=== PATIENT | female | born 1925 | race Caucasian/White ===

== ENCOUNTER 2016-09-20 20:41 | Inpatient (IN) | payer MEDICARE, BC, MEDICAID ==
[~2016-09-20] VITALS: Ht 165.1 cm; Wt 62.6 kg
[2016-09-20 20:51] VITALS: BP 105/84
[2016-09-20] MEDS ORDERED: Unasyn 3gm Inj ONE (20:57)
[2016-09-20] MEDS ORDERED: Ampicillin/Sulbactam Sod 3 GM in NS 100 ML IV SCH (21:00)
[2016-09-20] MEDS ORDERED: Vancomycin 1.5gm/D5W 300ml 300 ML IVPB ONE (21:00)
[2016-09-20] MEDS ORDERED: Acetaminophen 650 MG SUPP RECTAL ONE (21:00)
--- NOTE | 2016-09-20 21:00 | Emergency Room Report ---
History of Present Illness General Chief Complaint: Altered Level of Consciousness Source: Patient, Medical Record Present Illness HPI Patient is a 89-year-old female presented after increased altered level consciousness. Patient gradual onset of symptoms. The patient presented for assisted. History is limited by patient's altered mental status. Patient noted be afebrile. She has prior history of chronic atrial fibrillation and as well as toxic encephalopathy and hypothyroidism. She was brought in by EMS and was noted to have a decreased of consciousness. Allergies: Coded Allergies: No Known Allergies (Unverified , 09/20/16) Patient History Past Medical History: see triage record Last Menstrual Period: n/a Reviewed Nursing Documentation: PMH: Agreed, PSxH: Agreed Nursing Documentation-PMH Past Medical History: No History, Except For Hx Cardiac Problems: Yes - afib Hx Hypertension: Yes Hx Gastrointestinal Problems: Yes - dysphagia Hx Neurological Problems: Yes - dementia Review of Systems All Other Systems: limited - by mental status and acuity Physical Exam Vital Signs Date Time Temp Pulse Resp B/P Pulse Ox O2 Delivery O2 Flow Rate FiO2 09/20/16 20:36 130 18 136/81 94 Non-Rebreather 15.0 09/20/16 20:51 102.9 Sp02 EP Interpretation: abnormal General Appearance: moderate distress, Chronically Ill Head: normocephalic Eyes: bilateral eye PERRL ENT: normal pharynx, dry mucus membranes Neck: limited range of motion Respiratory: rales, rhonchi Cardiovascular #1: normal peripheral pulses, tachycardia Gastrointestinal: non tender, soft, no mass, no organomegaly Musculoskeletal: normal inspection, back normal Neurologic: alert, responsive, fresh work inspector III-XII nml as tested Psychiatric: other Skin: normal color, warm/dry Procedures Critical Care Time Critical Care Time Patient had a critical medical condition which untreated could potentially result in life or limb threatening injury. Total critical care time excluding procedures approximately 45 minutes. Medical Decision Making Diagnostic Impression: Primary Impression: Altered level of consciousness Additional Impressions: Severe sepsis Atrial fibrillation ER Course Patient presented for altered mental status.Differential diagnosis included but was not limited to ischemic stroke, subarachnoid hemorrhage, hypoglycemia, spinal cord injury, neurodegenerative disorder, urinary tract infection, hypoxemia.Because of complexity of patient's case laboratory testing and imaging studies were ordered. The patient did be febrile and appears to be septic. Patient started on IV fluids and IV antibiotics after blood culture obtained. The patient's exam is consistent with a pneumonia. Patient was given empiric coverage. Rhythm strip shows sinus tachycardia with a rate of 150 with frequent PVCs and ectopy. The patient started on IV fluids. Patient noted have some improvement in her heart rate. Chest x-ray one view interpreted by me showed a right lower lobe infiltrate consistent with possible aspiration pneumonia. The patient had some improvement in her blood pressure with IV fluids. The patient was started on BiPAP The patient was discussed with Dr. Rodrigo Diaz who is covering forDr. Timo Watkins for inpatient management Labs Test 09/20/16 20:49 09/20/16 21:15 09/20/16 22:42 Arterial Blood pH 7.412 (7.350-7.450) Arterial Blood Partial Pressure CO2 38.7 mmHg (35.0-45.0) Arterial Blood Partial Pressure O2 89.3 mmHg (75.0-100.0) Arterial Blood HCO3 24.1 mmol/L (22.0-26.0) Arterial Blood Oxygen Saturation 96.6 % (92.0-98.0) Arterial Blood Base Excess -0.3 Lee Test Positive White Blood Count 12.6 K/UL (4.8-10.8) Red Blood Count 5.58 M/UL (4.20-5.40) Hemoglobin 16.9 G/DL (12.0-16.0) Hematocrit 53.4 % (37.0-47.0) Mean Corpuscular Volume 96 FL (80-99) Mean Corpuscular Hemoglobin 30.3 PG (27.0-31.0) Mean Corpuscular Hemoglobin Concent 31.7 G/DL (32.0-36.0) Red Cell Distribution Width 13.3 % (11.6-14.8) Platelet Count 235 K/UL (150-450) Mean Platelet Volume 7.9 FL (6.5-10.1) Neutrophils (%) (Auto) % (45.0-75.0) Lymphocytes (%) (Auto) % (20.0-45.0) Monocytes (%) (Auto) % (1.0-10.0) Eosinophils (%) (Auto) % (0.0-3.0) Basophils (%) (Auto) % (0.0-2.0) Differential Total Cells Counted 100 Neutrophils % (Manual) 68 % (45-75) Lymphocytes % (Manual) 5 % (20-45) Monocytes % (Manual) 4 % (1-10) Eosinophils % (Manual) 0 % (0-3) Basophils % (Manual) 0 % (0-2) Band Neutrophils 23 % (0-8) Platelet Estimate Adequate Platelet Morphology Normal Red Blood Cell Morphology Normal Prothrombin Time 21.9 SEC (9.30-11.50) Prothromb Time International Ratio 2.1 (0.9-1.1) Activated Partial Thromboplast Time 43 SEC (23-33) Urine Color Brown Urine Appearance Cloudy Urine pH 6 (4.5-8.0) Urine Specific [place] 1.025 (1.005-1.035) Urine Protein 3+ (NEGATIVE) Urine Glucose (UA) Negative (NEGATIVE) Urine Ketones 1+ (NEGATIVE) Urine Occult Blood 5+ (NEGATIVE) Urine Nitrite Positive (NEGATIVE) Urine Bilirubin Negative (NEGATIVE) Urine Urobilinogen Normal MG/DL (0.0-1.0) Urine Leukocyte Esterase 3+ (NEGATIVE) Urine RBC 10-15 /HPF (0 - 2) Urine WBC 15-20 /HPF (0 - 2) Urine Squamous Epithelial Cells Few /LPF (NONE/OCC) Urine Bacteria Many /HPF (NONE) Sodium Level 143 mEQ/L (135-145) Potassium Level 3.7 mEQ/L (3.4-4.9) Chloride Level 99 mEQ/L (98-107) Carbon Dioxide Level 26 mEQ/L (20-30) Anion Gap 18 (5-15) Blood Urea Nitrogen 30 mg/dL (7-23) Creatinine 0.7 mg/dL (0.5-0.9) Estimat Glomerular Filtration Rate mL/min (>60) Glucose Level 208 mg/dL (74-106) Calcium Level 8.9 mg/dL (8.6-10.2) Total Bilirubin 0.9 mg/dL (0.0-1.2) Aspartate Amino Transf (AST/SGOT) 14 U/L (5-40) Alanine Aminotransferase (ALT/SGPT) 10 U/L (3-33) Alkaline Phosphatase 67 U/L (35-104) Total Creatine Kinase 14 U/L (26-140) Creatine Kinase MB < 1.5 ng/mL (< 3.8) Creatine Kinase MB Relative Index Troponin I < 0.30 ng/mL (<=0.30) Pro-B-Type Natriuretic Peptide 2017 pg/mL (0-450) Total Protein 5.7 g/dL (6.6-8.7) Albumin 3.1 g/dL (3.5-5.2) Globulin 2.6 g/dL Albumin/Globulin Ratio 1.1 (1.0-2.7) Lactic Acid Level 1.80 mmol/L (0.66-2.22) EKG Diagnostic Results Rate: tachycardiac Rhythm: NSR ST Segments: no acute changes Rhythm Strip Diag. Results EP Interpretation: yes Rhythm: NSR, other - frequent pvcs Chest X-Ray Diagnostic Results EP Interpretation: Yes Findings: no effusion, no pneumothorax, other - right lower lobe infiltrate Last Vital Signs Date Time Temp Pulse Resp B/P Pulse Ox O2 Delivery O2 Flow Rate FiO2 09/20/16 20:51 102.9 160 37 105/84 94 Nasal Cannula 2.0 Status: improved Disposition: HOME, SELF-CARE Condition: Serious Thierry Tinajero Sep 20, 2016 21:00
[2016-09-20 21:21] LABS: ABG ALLEN TEST POSITIVE; ABG BASE EXCESS -0.3; ABG PCO2 38.7 mmHg (35.0-45.0)
[2016-09-20 21:38] LABS: MEAN CORPUSCULAR HEMOGLOBIN 30.3 PG (27.0-31.0); MEAN CORPUSCULAR HGB CONC 31.7 G/DL (32.0-36.0); MEAN CORPUSCULAR VOLUME 96 FL (80-99); MEAN PLATELET VOLUME 7.9 FL (6.5-10.1); PLATELET COUNT 235 K/UL (150-450); RED BLOOD COUNT 5.58 M/UL (4.20-5.40); RED CELL DISTRIBUTION WIDTH 13.3 % (11.6-14.8); WHITE BLOOD COUNT 12.6 K/UL (4.8-10.8)
[2016-09-20 21:48] LABS: KETONES,URINE 1+ (NEGATIVE); LEUKOCYTE ESTERASE ,URINE 3+ (NEGATIVE); NITRITE,URINE POSITIVE (NEGATIVE); PH,URINE 6 (4.5-8.0); PROTEIN,URINE 3+ (NEGATIVE); UROBILINOGEN,URINE NORMAL MG/DL (0.0-1.0)
[2016-09-20 21:52] LABS: APPEARANCE,URINE CLOUDY
[2016-09-20 22:03] LABS: INR 2.1 (0.9-1.1); PROTHROMBIN TIME 21.9 SEC (9.30-11.50)
[2016-09-20 22:05] LABS: TROPONIN I < 0.30 ng/mL (<=0.30)
[2016-09-20 22:09] LABS: ALANINE AMINOTRANSFERASE 10 U/L (3-33); ALBUMIN/GLOBULIN RATIO 1.1 (1.0-2.7); ANION GAP 18 (5-15); ASPARTATE AMINO TRANSFERASE 14 U/L (5-40); CALCIUM 8.9 mg/dL (8.6-10.2); CARBON DIOXIDE 26 mEQ/L (20-30); CHLORIDE 99 mEQ/L (98-107); CREATININE 0.7 mg/dL (0.5-0.9); HEMOLYSIS 14; POTASSIUM 3.7 mEQ/L (3.4-4.9); SODIUM 143 mEQ/L (135-145); TOTAL PROTEIN 5.7 g/dL (6.6-8.7)
[2016-09-20 22:16] LABS: REFLEX LACTIC ACID YES OR NO YES
[2016-09-20 22:18] LABS: BACTERIA,URINE MANY /HPF; SQUAMOUS EPITHELIAL CELL,UR FEW /LPF (NONE/OCC); WBC,URINE 15-20 /HPF (0 - 2)
[2016-09-20 22:20] LABS: CKMB < 1.5 ng/mL (< 3.8)
[2016-09-20 22:34] LABS: BAND NEUTROPHILS % (MANUAL) 23 % (0-8); BASOPHILS % (MANUAL) 0 % (0-2); EOSINOPHILS % (MANUAL) 0 % (0-3); LYMPHOCYTES % (MANUAL) 5 % (20-45); NEUTROPHILS % (MANUAL) 68 % (45-75); PLATELET ESTIMATE ADEQUATE; PLATELET MORPHOLOGY NORMAL; TOTAL CELLS COUNTED 100
[2016-09-20 23:01] VITALS: BP 120/61
[2016-09-20] MEDS ORDERED: Morphine Sulfate 4mg/ml Inj IVP PRN (23:30)
[2016-09-20] MEDS ORDERED: DuoNeb 0.5-3(2.5)mg/3ml neb HHN PRN (23:30)
[2016-09-20] MEDS ORDERED: LORazepam Inj 2mg/ml 1ml IV PRN (23:30)
[2016-09-20] MEDS ORDERED: Miralax 17gm pkt ORAL PRN (23:30)
[2016-09-20] MEDS ORDERED: ACETAMINOPHEN325 M3 PO (23:39)
[2016-09-20] MEDS ORDERED: Metoprolol 5mg/5ml Inj IVP PRN (23:45)
[2016-09-21] VITALS (19 sets, daily range): BP systolic 98–140; BP diastolic 1–91
[2016-09-21] MEDS ORDERED: MELATONIN 5 MG1 EAC1 ORAL (00:10)
[2016-09-21] MEDS ORDERED: METOPROLOL SUCC25 MG ORAL (00:11)
[2016-09-21] MEDS ORDERED: SENNA8.6 M2 PO (00:19)
[2016-09-21] MEDS ORDERED: NAMENDA5 MG ORAL (00:19)
[2016-09-21] MEDS ORDERED: VITAMIN C500 M1 ORAL (00:19)
[2016-09-21] MEDS ORDERED: MULTIVITAMINS1 EAC2 ORAL (00:19)
[2016-09-21] MEDS ORDERED: MIRTAZAPINE15 MG ORAL (00:19)
[2016-09-21] MEDS ORDERED: ACETAMINOPHEN-1 EAC1 ORAL (00:19)
[2016-09-21] MEDS ORDERED: XARELTO20 MG ORAL (00:19)
[2016-09-21] MEDS ORDERED: BISACODYL5 MG ORAL (00:52)
[2016-09-21] MEDS ORDERED: ATIVAN0.5 MG ORAL (00:52)
[2016-09-21] MEDS ORDERED: Cefepime 2gm ONE (01:42)
[2016-09-21 05:33] LABS: MEAN CORPUSCULAR HEMOGLOBIN 31.4 PG (27.0-31.0); MEAN CORPUSCULAR HGB CONC 32.3 G/DL (32.0-36.0); MEAN CORPUSCULAR VOLUME 97 FL (80-99); MEAN PLATELET VOLUME 6.9 FL (6.5-10.1); PLATELET COUNT 174 K/UL (150-450); RED BLOOD COUNT 4.47 M/UL (4.20-5.40); RED CELL DISTRIBUTION WIDTH 13.4 % (11.6-14.8); WHITE BLOOD COUNT 11.1 K/UL (4.8-10.8)
[2016-09-21 06:05] LABS: ANION GAP 14 (5-15); CALCIUM 7.9 mg/dL (8.6-10.2); CARBON DIOXIDE 25 mEQ/L (20-30); CHLORIDE 104 mEQ/L (98-107); CREATININE 0.6 mg/dL (0.5-0.9); HEMOLYSIS 7; PHOSPHORUS 3.5 mg/dL (2.5-4.8); POTASSIUM 3.7 mEQ/L (3.4-4.9); SODIUM 143 mEQ/L (135-145)
[2016-09-21] MEDS ORDERED: Vancomycin 750mg/D5W 250ml IVPB SCH ×2 (09:00)
[2016-09-21] MEDS ORDERED: Heparin 5000 units/ml inj SUBQ SCH (09:00)
[2016-09-21 09:13] LABS: BAND NEUTROPHILS % (MANUAL) 12 % (0-8); BASOPHILS % (MANUAL) 1 % (0-2); EOSINOPHILS % (MANUAL) 0 % (0-3); LYMPHOCYTES % (MANUAL) 10 % (20-45); NEUTROPHILS % (MANUAL) 75 % (45-75); PLATELET ESTIMATE ADEQUATE; PLATELET MORPHOLOGY NORMAL; TOTAL CELLS COUNTED 100
--- NOTE | 2016-09-21 09:19 | Consultation ---
History of Present Illness General Date patient seen: Sep 21, 2016 Chief Complaint: Altered Level of Consciousness Referring physician: Dr. Watkins Reason for Consultation: management of septic shock Present Illness HPI 89-year-old female with PMHx of depression, anxiety, chronic afib, snf resident presented to ER with CC of increased altered level consciousness with gradual onset of symptoms. She was noted to be afebrile. She has prior history of chronic atrial fibrillation and as well as toxic encephalopathy and hypothyroidism. She was tachycardic and hypotensive in the ER and was admitted to ICU. Currently HR is controlled and she is more alert but still confused. Allergies: Coded Allergies: No Known Allergies (Unverified , 09/20/16) Medication History Scheduled Ascorbic Acid* (Vitamin C*), 500 MG ORAL DAILY, (Reported) Bisacodyl* (Dulcolax*), 5 MG ORAL DAILY, (Reported) Lorazepam* (Ativan*), 0.5 MG ORAL THREE TIMES A DAY, (Reported) Memantine Hcl* (Namenda*), 5 MG ORAL TWICE A DAY, (Reported) Metoprolol Succinate* (Metoprolol Succinate*), 12.5 MG ORAL DAILY, (Reported) Mirtazapine* (Remeron*), 15 MG ORAL BEDTIME, (Reported) Multivitamins* (Multivitamins*), 1 TAB ORAL DAILY, (Reported) Scheduled PRN Acetaminophen (Acetaminophen), 650 MG PO Q6HR PRN for fever, (Reported) Acetaminophen With Codeine (T#3) (Tylenol #3 Tab*), 1 TAB ORAL Q8HR PRN for For Pain, (Reported) Melatonin (Melatonin 5 Mg Tablet), 1 TAB ORAL BEDTIME PRN for Insomnia, ( Reported) Miscellaneous Medications Rivaroxaban (Xarelto), 20 MG ORAL, (Reported) Sennosides (Senna), 8.6 MG PO, (Reported) Patient History Healthcare decision maker DAVE Hobbs Resuscitation status Full Code Advanced Directive on File No Past Medical/Surgical History Past Medical/Surgical History: (1) Depression (2) Hypothyroidism (3) Atrial fibrillation Social History Social History: (1) [facility] resident Review of Systems All Other Systems: negative except mentioned in HPI Physical Exam General Appearance: WD/WN Lines, tubes and drains: peripheral HEENT: normocephalic, atraumatic Neck: non-tender, normal alignment Respiratory/Chest: chest wall non-tender, lungs clear Cardiovascular/Chest: normal peripheral pulses, normal rate Abdomen: normal bowel sounds, non tender, soft Skin Exam: normal pigmentation Neurologic: repeat chief II-XII grossly normal Last 24 Hour Vital Signs Date Time Temp Pulse Resp B/P Pulse Ox O2 Delivery O2 Flow Rate FiO2 09/21/16 08:00 88 17 98/1 93 Nasal Cannula 4.0 09/21/16 08:00 88 09/21/16 07:00 97.6 92 25 123/84 98 Simple Mask 6.0 09/21/16 06:00 102 25 138/83 98 Simple Mask 6.0 09/21/16 05:55 98 Simple Mask 6.0 45 09/21/16 05:55 Simple Mask 6.0 45 09/21/16 05:24 98 18 90 6.0 09/21/16 05:00 88 20 117/59 97 Simple Mask 6.0 09/21/16 04:00 93 09/21/16 04:00 97.4 93 21 106/64 97 Simple Mask 6.0 09/21/16 03:11 97 19 98 6.0 09/21/16 03:00 99 20 114/64 97 Simple Mask 6.0 09/21/16 02:00 98 22 110/65 97 Simple Mask 6.0 09/21/16 01:26 105 09/21/16 01:15 97.1 105 20 121/91 97 Simple Mask 6.0 09/21/16 01:00 99.5 95 18 104/54 96 Room Air 40 09/21/16 00:44 99.5 95 18 104/54 96 Room Air 2.0 40 09/21/16 00:30 102 23 99 6.0 09/21/16 00:01 102.9 109 26 104/54 98 Bi-pap 2.0 40 09/20/16 23:01 102.9 109 26 120/61 98 Bi-pap 40 09/20/16 22:35 124 14 97 Facial 40 09/20/16 21:29 102.9 09/20/16 21:20 40 09/20/16 21:09 135 25 Bi-pap 40 09/20/16 21:08 135 25 95 Facial 40 09/20/16 20:51 102.9 160 37 105/84 94 Nasal Cannula 2.0 09/20/16 20:36 130 18 136/81 94 Non-Rebreather 15.0 Intake and Output 09/20/16 09/21/16 19:00 07:00 Intake Total 1650 ml Output Total 210 ml Balance 1440 ml Intake Oral 0 ml IV Total 650 ml Other 1000 ml Output Urine Total 210 ml # Bowel Movements 2 Laboratory Tests Test 09/20/16 20:49 09/20/16 21:15 09/20/16 22:42 09/21/16 04:15 Arterial Blood pH 7.412 (7.350-7.450) Arterial Blood Partial Pressure CO2 38.7 mmHg (35.0-45.0) Arterial Blood Partial Pressure O2 89.3 mmHg (75.0-100.0) Arterial Blood HCO3 24.1 mmol/L (22.0-26.0) Arterial Blood Oxygen Saturation 96.6 % (92.0-98.0) Arterial Blood Base Excess -0.3 Lee Test Positive White Blood Count 12.6 K/UL (4.8-10.8) H 11.1 K/UL (4.8-10.8) H Red Blood Count 5.58 M/UL (4.20-5.40) H 4.47 M/UL (4.20-5.40) Hemoglobin 16.9 G/DL (12.0-16.0) H 14.0 G/DL (12.0-16.0) Hematocrit 53.4 % (37.0-47.0) H 43.5 % (37.0-47.0) Mean Corpuscular Volume 96 FL (80-99) 97 FL (80-99) Mean Corpuscular Hemoglobin 30.3 PG (27.0-31.0) 31.4 PG (27.0-31.0) H Mean Corpuscular Hemoglobin Concent 31.7 G/DL (32.0-36.0) L 32.3 G/DL (32.0-36.0) Red Cell Distribution Width 13.3 % (11.6-14.8) 13.4 % (11.6-14.8) Platelet Count 235 K/UL (150-450) 174 K/UL (150-450) Mean Platelet Volume 7.9 FL (6.5-10.1) 6.9 FL (6.5-10.1) Neutrophils (%) (Auto) % (45.0-75.0) % (45.0-75.0) Lymphocytes (%) (Auto) % (20.0-45.0) % (20.0-45.0) Monocytes (%) (Auto) % (1.0-10.0) % (1.0-10.0) Eosinophils (%) (Auto) % (0.0-3.0) % (0.0-3.0) Basophils (%) (Auto) % (0.0-2.0) % (0.0-2.0) Differential Total Cells Counted 100 Neutrophils % (Manual) 68 % (45-75) Pending Lymphocytes % (Manual) 5 % (20-45) L Pending Monocytes % (Manual) 4 % (1-10) Eosinophils % (Manual) 0 % (0-3) Basophils % (Manual) 0 % (0-2) Band Neutrophils 23 % (0-8) H Platelet Estimate Adequate Pending Platelet Morphology Normal Pending Red Blood Cell Morphology Normal Prothrombin Time 21.9 SEC (9.30-11.50) H Prothromb Time International Ratio 2.1 (0.9-1.1) H Activated Partial Thromboplast Time 43 SEC (23-33) H Urine Color Brown Urine Appearance Cloudy Urine pH 6 (4.5-8.0) Urine Specific [place] 1.025 (1.005-1.035) Urine Protein 3+ (NEGATIVE) H Urine Glucose (UA) Negative (NEGATIVE) Urine Ketones 1+ (NEGATIVE) H Urine Occult Blood 5+ (NEGATIVE) H Urine Nitrite Positive (NEGATIVE) H Urine Bilirubin Negative (NEGATIVE) Urine Urobilinogen Normal MG/DL (0.0-1.0) Urine Leukocyte Esterase 3+ (NEGATIVE) H Urine RBC 10-15 /HPF (0 - 2) H Urine WBC 15-20 /HPF (0 - 2) H Urine Squamous Epithelial Cells Few /LPF (NONE/OCC) Urine Bacteria Many /HPF (NONE) H Sodium Level 143 mEQ/L (135-145) 143 mEQ/L (135-145) Potassium Level 3.7 mEQ/L (3.4-4.9) 3.7 mEQ/L (3.4-4.9) Chloride Level 99 mEQ/L (98-107) 104 mEQ/L (98-107) Carbon Dioxide Level 26 mEQ/L (20-30) 25 mEQ/L (20-30) Anion Gap 18 (5-15) H 14 (5-15) Blood Urea Nitrogen 30 mg/dL (7-23) H 27 mg/dL (7-23) H Creatinine 0.7 mg/dL (0.5-0.9) 0.6 mg/dL (0.5-0.9) Estimat Glomerular Filtration Rate mL/min (>60) mL/min (>60) Glucose Level 208 mg/dL (74-106) H 216 mg/dL (74-106) H Lactic Acid Level 2.50 mmol/L (0.66-2.22) H 1.80 mmol/L (0.66-2.22) Calcium Level 8.9 mg/dL (8.6-10.2) 7.9 mg/dL (8.6-10.2) L Total Bilirubin 0.9 mg/dL (0.0-1.2) Aspartate Amino Transf (AST/SGOT) 14 U/L (5-40) Alanine Aminotransferase (ALT/SGPT) 10 U/L (3-33) Alkaline Phosphatase 67 U/L (35-104) Total Creatine Kinase 14 U/L (26-140) L Creatine Kinase MB < 1.5 ng/mL (< 3.8) Creatine Kinase MB Relative Index Troponin I < 0.30 ng/mL (<=0.30) Pro-B-Type Natriuretic Peptide 2017 pg/mL (0-450) H Total Protein 5.7 g/dL (6.6-8.7) L Albumin 3.1 g/dL (3.5-5.2) L 2.3 g/dL (3.5-5.2) L Globulin 2.6 g/dL Albumin/Globulin Ratio 1.1 (1.0-2.7) Phosphorus Level 3.5 mg/dL (2.5-4.8) Height (Feet): 5 Height (Inches): 8.00 Weight (Pounds): 138 Medications Current Medications Medications (Trade) Dose Ordered Sig/[place] Route PRN Reason Start Time Stop Time Status Last Admin Dose Admin Acetaminophen (Tylenol) 650 mg Q4H PRN ORAL FEVER 09/20/16 23:30 10/20/16 23:29 Albuterol/ Ipratropium 3 ml 3 ml Q4H PRN HHN Shortness of Breath 09/20/16 23:30 09/25/16 23:29 Cefepime HCl/ Dextrose (Maxipime/D5W 100ml) 100 ml @ 100 mls/hr Q24H IV 09/21/16 01:00 09/28/16 00:59 09/21/16 01:46 Dextrose (Dextrose 50%) STAT PRN IV Hypoglycemia 09/20/16 23:30 10/20/16 23:29 Heparin Sodium (Porcine) (Heparin 5000 units/ml) 5,000 units EVERY 12 HOURS SUBQ 09/21/16 09:00 10/21/16 08:59 09/21/16 08:36 Lorazepam (Ativan 2mg/ml 1ml) 2 mg Q2H PRN IV For Anxiety 09/20/16 23:30 09/27/16 23:29 Metoprolol Tartrate 5 mg 5 mg EVERY HOUR PRN IVP spb more than 120 09/20/16 23:45 10/20/16 23:44 UNV Morphine Sulfate (Morphine Sulfate) 4 mg Q4H PRN IVP Severe Pain (Pain Scale 7-10) 09/20/16 23:30 09/27/16 23:29 Ondansetron HCl (Zofran) 4 mg Q6H PRN IVP Nausea & Vomiting 09/20/16 23:30 10/20/16 23:29 Polyethylene Glycol (Miralax) 17 gm DAILYPRN PRN ORAL Constipation 09/20/16 23:30 10/20/16 23:29 Sodium Chloride (0.45% NS 1000ml) 1,000 ml @ 50 mls/hr Q20H IV 09/21/16 01:00 10/21/16 00:59 09/21/16 01:34 Vancomycin HCl/ Dextrose (Vancomycin/D5W 250ml) 250 ml @ 167 mls/hr Q12H IVPB 09/21/16 09:00 09/26/16 08:59 09/21/16 08:35 Assessment/Plan Problem List: (1) Acute encephalopathy ICD Codes: G93.40 - Encephalopathy, unspecified SNOMED: 6968704 (2) Atrial fibrillation ICD Codes: I48.91 - Unspecified atrial fibrillation SNOMED: 55503969 Qualifiers: Qualified Codes: I48.2 - Chronic atrial fibrillation (3) Altered level of consciousness ICD Codes: R40.4 - Transient alteration of awareness SNOMED: 2064076 (4) Severe sepsis ICD Codes: A41.9 - Sepsis, unspecified organism; R65.20 - Severe sepsis without septic shock SNOMED: 29530984 (5) Depression ICD Codes: F32.9 - Major depressive disorder, single episode, unspecified SNOMED: 80684675 Qualifiers: (6) Hypothyroidism ICD Codes: E03.9 - Hypothyroidism, unspecified SNOMED: 65372682 Qualifiers: Qualified Codes: E03.4 - Atrophy of thyroid (acquired) (7) [facility] resident ICD Codes: Z59.3 - Problems related to living in residential institution SNOMED: 418326584 Assessment/Plan IV hydration IV antibiotics check cultures titrate fio2 check electrolytes cardiac evaluation swallow evaluation might go to telemetry repeat cxr in a few days LEONORA XIAO Sep 21, 2016 09:19
--- NOTE | 2016-09-21 11:54 | Consultation ---
Consult Note Consult Note ID Dic# [id number] JAMIL TOWNSEND M.D. Sep 21, 2016 11:54
--- NOTE | 2016-09-21 12:04 | Diagnostic Imaging Report ---
Indication: SOB Technique: One view of the chest Comparison: none Findings: The patient is rotated to the right. There is evidence of bronchiectasis and bronchial wall thickening involving the right mid and lower lung. No definite acute infiltrates, effusions, or congestion. Heart size is borderline enlarged. There are degenerative changes of the right shoulder Impression: Chronic senescent pulmonary parenchymal changes. No definite acute process Cardiomegaly Other findings as noted
[2016-09-21] MEDS ORDERED: Miralax 17gm pkt ORAL PRN (15:30)
[2016-09-21] MEDS ORDERED: DuoNeb 0.5-3(2.5)mg/3ml neb HHN PRN (15:30)
[2016-09-21] MEDS ORDERED: LORazepam Inj 2mg/ml 1ml IV PRN (15:30)
[2016-09-21] MEDS ORDERED: Morphine Sulfate 4mg/ml Inj IVP PRN (15:30)
--- NOTE | 2016-09-21 16:47 | History & Physical ---
History and Physical History & Physicial Dictated for Int Med-Dr Watkins no. [id number]. ANGELI MILNER Sep 21, 2016 16:47
--- NOTE | 2016-09-21 17:43 | Cardiac Electrophysiology PN ---
Subjective Subjective [id number] Objective Last 24 Hour Vital Signs Date Time Temp Pulse Resp B/P Pulse Ox O2 Delivery O2 Flow Rate FiO2 09/21/16 15:35 97.3 89 123/64 98 2.0 09/21/16 15:00 90 20 126/60 96 Nasal Cannula 5.0 09/21/16 14:00 98.1 87 21 121/66 100 Nasal Cannula 4.0 09/21/16 13:00 88 20 126/60 96 Nasal Cannula 5.0 09/21/16 12:04 82 09/21/16 12:01 97.2 84 22 140/74 95 Nasal Cannula 5.0 09/21/16 11:00 77 18 109/60 95 Nasal Cannula 5.0 09/21/16 10:00 82 18 107/57 95 Nasal Cannula 5.0 09/21/16 09:00 82 18 103/55 95 Nasal Cannula 5.0 09/21/16 08:00 88 17 98/1 93 Nasal Cannula 4.0 09/21/16 08:00 88 09/21/16 07:20 83 20 Simple Mask 40 09/21/16 07:00 97.6 92 25 123/84 98 Simple Mask 6.0 09/21/16 06:00 102 25 138/83 98 Simple Mask 6.0 09/21/16 05:55 98 Simple Mask 6.0 45 09/21/16 05:55 Simple Mask 6.0 45 09/21/16 05:24 98 18 90 6.0 09/21/16 05:00 88 20 117/59 97 Simple Mask 6.0 09/21/16 04:00 93 09/21/16 04:00 97.4 93 21 106/64 97 Simple Mask 6.0 09/21/16 03:11 97 19 98 6.0 09/21/16 03:00 99 20 114/64 97 Simple Mask 6.0 09/21/16 02:00 98 22 110/65 97 Simple Mask 6.0 09/21/16 01:26 105 09/21/16 01:15 97.1 105 20 121/91 97 Simple Mask 6.0 09/21/16 01:00 99.5 95 18 104/54 96 Room Air 40 09/21/16 00:44 99.5 95 18 104/54 96 Room Air 2.0 40 12/29/16 00:30 102 23 99 6.0 09/21/16 00:01 102.9 109 26 104/54 98 Bi-pap 2.0 40 09/20/16 23:01 102.9 109 26 120/61 98 Bi-pap 40 09/20/16 22:35 124 14 97 Facial 40 09/20/16 21:29 102.9 09/20/16 21:20 40 09/20/16 21:09 135 25 Bi-pap 40 09/20/16 21:08 135 25 95 Facial 40 09/20/16 20:51 102.9 160 37 105/84 94 Nasal Cannula 2.0 09/20/16 20:36 130 18 136/81 94 Non-Rebreather 15.0 Intake and Output 09/20/16 09/21/16 19:00 07:00 Intake Total 1650 ml Output Total 210 ml Balance 1440 ml Intake Oral 0 ml IV Total 650 ml Other 1000 ml Output Urine Total 210 ml # Bowel Movements 2 Laboratory Tests Test 09/20/16 20:49 09/20/16 21:15 09/20/16 22:42 09/21/16 04:15 Arterial Blood pH 7.412 (7.350-7.450) Arterial Blood Partial Pressure CO2 38.7 mmHg (35.0-45.0) Arterial Blood Partial Pressure O2 89.3 mmHg (75.0-100.0) Arterial Blood HCO3 24.1 mmol/L (22.0-26.0) Arterial Blood Oxygen Saturation 96.6 % (92.0-98.0) Arterial Blood Base Excess -0.3 Lee Test Positive White Blood Count 12.6 K/UL (4.8-10.8) H 11.1 K/UL (4.8-10.8) H Red Blood Count 5.58 M/UL (4.20-5.40) H 4.47 M/UL (4.20-5.40) Hemoglobin 16.9 G/DL (12.0-16.0) H 14.0 G/DL (12.0-16.0) Hematocrit 53.4 % (37.0-47.0) H 43.5 % (37.0-47.0) Mean Corpuscular Volume 96 FL (80-99) 97 FL (80-99) Mean Corpuscular Hemoglobin 30.3 PG (27.0-31.0) 31.4 PG (27.0-31.0) H Mean Corpuscular Hemoglobin Concent 31.7 G/DL (32.0-36.0) L 32.3 G/DL (32.0-36.0) Red Cell Distribution Width 13.3 % (11.6-14.8) 13.4 % (11.6-14.8) Platelet Count 235 K/UL (150-450) 174 K/UL (150-450) Mean Platelet Volume 7.9 FL (6.5-10.1) 6.9 FL (6.5-10.1) Neutrophils (%) (Auto) % (45.0-75.0) % (45.0-75.0) Lymphocytes (%) (Auto) % (20.0-45.0) % (20.0-45.0) Monocytes (%) (Auto) % (1.0-10.0) % (1.0-10.0) Eosinophils (%) (Auto) % (0.0-3.0) % (0.0-3.0) Basophils (%) (Auto) % (0.0-2.0) % (0.0-2.0) Differential Total Cells Counted 100 100 Neutrophils % (Manual) 68 % (45-75) 75 % (45-75) Lymphocytes % (Manual) 5 % (20-45) L 10 % (20-45) L Monocytes % (Manual) 4 % (1-10) 2 % (1-10) Eosinophils % (Manual) 0 % (0-3) 0 % (0-3) Basophils % (Manual) 0 % (0-2) 1 % (0-2) Band Neutrophils 23 % (0-8) H 12 % (0-8) H Platelet Estimate Adequate Adequate Platelet Morphology Normal Normal Red Blood Cell Morphology Normal Normal Prothrombin Time 21.9 SEC (9.30-11.50) H Prothromb Time International Ratio 2.1 (0.9-1.1) H Activated Partial Thromboplast Time 43 SEC (23-33) H Urine Color Brown Urine Appearance Cloudy Urine pH 6 (4.5-8.0) Urine Specific [place] 1.025 (1.005-1.035) Urine Protein 3+ (NEGATIVE) H Urine Glucose (UA) Negative (NEGATIVE) Urine Ketones 1+ (NEGATIVE) H Urine Occult Blood 5+ (NEGATIVE) H Urine Nitrite Positive (NEGATIVE) H Urine Bilirubin Negative (NEGATIVE) Urine Urobilinogen Normal MG/DL (0.0-1.0) Urine Leukocyte Esterase 3+ (NEGATIVE) H Urine RBC 10-15 /HPF (0 - 2) H Urine WBC 15-20 /HPF (0 - 2) H Urine Squamous Epithelial Cells Few /LPF (NONE/OCC) Urine Bacteria Many /HPF (NONE) H Sodium Level 143 mEQ/L (135-145) 143 mEQ/L (135-145) Potassium Level 3.7 mEQ/L (3.4-4.9) 3.7 mEQ/L (3.4-4.9) Chloride Level 99 mEQ/L (98-107) 104 mEQ/L (98-107) Carbon Dioxide Level 26 mEQ/L (20-30) 25 mEQ/L (20-30) Anion Gap 18 (5-15) H 14 (5-15) Blood Urea Nitrogen 30 mg/dL (7-23) H 27 mg/dL (7-23) H Creatinine 0.7 mg/dL (0.5-0.9) 0.6 mg/dL (0.5-0.9) Estimat Glomerular Filtration Rate mL/min (>60) mL/min (>60) Glucose Level 208 mg/dL (74-106) H 216 mg/dL (74-106) H Lactic Acid Level 2.50 mmol/L (0.66-2.22) H 1.80 mmol/L (0.66-2.22) Calcium Level 8.9 mg/dL (8.6-10.2) 7.9 mg/dL (8.6-10.2) L Total Bilirubin 0.9 mg/dL (0.0-1.2) Aspartate Amino Transf (AST/SGOT) 14 U/L (5-40) Alanine Aminotransferase (ALT/SGPT) 10 U/L (3-33) Alkaline Phosphatase 67 U/L (35-104) Total Creatine Kinase 14 U/L (26-140) L Creatine Kinase MB < 1.5 ng/mL (< 3.8) Creatine Kinase MB Relative Index Troponin I < 0.30 ng/mL (<=0.30) Pro-B-Type Natriuretic Peptide 2017 pg/mL (0-450) H Total Protein 5.7 g/dL (6.6-8.7) L Albumin 3.1 g/dL (3.5-5.2) L 2.3 g/dL (3.5-5.2) L Globulin 2.6 g/dL Albumin/Globulin Ratio 1.1 (1.0-2.7) Phosphorus Level 3.5 mg/dL (2.5-4.8) KAIS[facility] RODRIGUEZ Sep 21, 2016 17:43
--- NOTE | 2016-09-21 21:18 | Consultation ---
DATE OF CONSULTATION: 09/21/2016 INFECTIOUS DISEASE CONSULTATION CONSULTING PHYSICIAN: Edwin Candelario M.D. ATTENDING PHYSICIAN: Timo Watkins M.D. REFERRING PHYSICIAN: Edgardo Delacruz M.D. REASON FOR CONSULTATION: Management of the patient for sepsis and antibiotic management. HISTORY OF PRESENT ILLNESS: The patient is an 89-year-old, a poor historian female, who came to the hospital due to sepsis and worsening of mental status. The patient was admitted to the ICU. The patient was found to have AFib with rapid ventricular response that now has been controlled. The patient was found to have leukocytosis and fever. The patient has been started on IV antibiotics. Infectious disease consultation has been requested for further evaluation of the patient's antibiotic management. PAST MEDICAL HISTORY: 1. History of urinary tract infection. 2. 3. History of AFib. 4. Hypothyroidism. 5. Dementia. 6. Osteoarthritis. 7. Anxiety. 8. Dysphagia. 9. History of failure to thrive. ALLERGIES: No known drug allergies. SOCIAL HISTORY: The patient lives in a [facility]. FAMILY HISTORY: Not available. REVIEW OF SYSTEMS: Unobtainable. MEDICATIONS: Vancomycin and cefepime. PHYSICAL EXAMINATION: VITAL SIGNS: Temperature 97.6 , pulse 86, respiratory rate 18, and blood pressure 109/60. HEENT: Mildly pale conjunctivae. No icterus. NECK: No lymphadenopathy. CHEST: Coarse breathing sounds. HEART: S1 and S2. ABDOMEN: Soft and nontender. EXTREMITIES: No cyanosis . NEUROLOGIC: Very confused. LABORATORY AND DIAGNOSTIC DATA: White blood cells 12.3 and today 11.1, hemoglobin 14, and platelets 174,000. UA unremarkable. BUN 27 and creatinine 0.6. ALT, AST, and alkaline phosphatase within normal range. Chest x-ray is pending. ASSESSMENT: The patient is an 89-year-old female with multiple medical problems as listed below, who came to the hospital with severe sepsis, leukocytosis, possible urinary tract infection as the source. Chest x-ray is pending to rule out possibility of underlying pneumonia and healthcare-associated pneumonia. At this time, the patient will benefit from broad-spectrum antibiotics until we get further information from cultures. PLAN: 1. Continue the patient on vancomycin and cefepime. 2. Monitor blood culture. 3. Monitor urine culture. 4. Monitor CBC. 5. Monitor BNP. Based on the patient's clinical course, laboratories, and cultures, we will do further recommendation. Thank you, Dr. Delacruz, for allowing me to participate in the care of this patient. I will follow the patient with you during this hospitalization. Edwin Candelario M.D. DR: Margot JOB#: [id number] CC:
--- NOTE | 2016-09-21 21:58 | History and Physical Report ---
DATE OF ADMISSION: 09/21/2016 CHIEF COMPLAINT: The patient is an 89-year-old white female, presents with a chief complaint of altered mental status. HISTORY OF PRESENT ILLNESS: The patient is a resident of [facility]. According to staff at [facility], the patient began to experience altered mental status. This was worsening over the last 24 hours. The patient presented to [facility]. The patient was found to be hypotensive. The patient was found to have urinary tract infection. The patient was admitted for urinary tract infection with hypotension, rule out sepsis. PAST MEDICAL HISTORY: Significant for: 1. Atrial fibrillation. 2. Hypertension. 3. Hypothyroidism. 4. Alzheimer's dementia. 5. Dysphagia. 6. Depression. PAST SURGICAL HISTORY: Unknown. MEDICATIONS: Current medications: 1. Tylenol 650 mg one tablet p.o. q.4 h. p.r.n. 2. Ativan 0.5 mg one tablet p.o. q.8 h. p.r.n. 3. Benazepril 5 mg one tablet p.o. daily. 4. Aricept 5 mg one tablet p.o. daily at bedtime. 5. Gabapentin 300 mg one tablet p.o. three times daily. 6. Levoxyl 50 mcg one tablet p.o. daily. 7. Megace 300 mg p.o. twice daily. 8. Metoprolol 12.5 mg one tablet p.o. daily. 9. Namenda 5 mg one tablet p.o. twice daily. 10. Remeron 15 mg one tablet p.o. at bedtime. 11. Xarelto 20 mg one tablet p.o. daily. ALLERGIES: No known drug allergies. SOCIAL HISTORY: The patient is a resident of [facility]. The patient denies tobacco use, having quit several years ago. The patient denies alcohol use. REVIEW OF SYSTEMS: Unable to assess secondary to the patient's mental status. PHYSICAL EXAMINATION: VITAL SIGNS: Temperature is 97.6 degrees, respirations 25, pulse 92, and blood pressure 98/42 and 123/84. GENERAL: The patient is a well-developed and well-nourished white female, in no apparent distress. HEENT: Eyes, pupils are equal and responsive to light and accommodation. Extraocular movements are intact. NECK: Supple without lymphadenopathy. CHEST: Lungs are clear to auscultation bilaterally without wheezes or rales. CARDIOVASCULAR: Regular rate. S1 and S2. No murmurs, rubs, or gallops. ABDOMEN: Soft, nontender, and nondistended. Positive bowel sounds. No evidence of hepatosplenomegaly. Currently, no rebound or guarding noted. EXTREMITIES: No clubbing, cyanosis, or edema. RECTAL/GENITAL: Refused. NEUROLOGIC: Cranial nerves II through XII are grossly intact without focal deficits. LABORATORY STUDIES: Urinalysis, 1+ ketones, 5+ occult blood, positive nitrite, 3+ leukocyte esterase, and 15 to 20 WBCs. WBC is 12.6, hemoglobin 16.9, hematocrit 53.4, and platelets 235,000. Sodium is 143, potassium 3.7, chloride 99, CO2 26, BUN 30, creatinine 0.7, and glucose elevated at 208. Troponin is normal at less than 0.3. BNP is elevated at 2017. Urine culture is pending. ASSESSMENT: This is an 89-year-old white female with: 1. Altered mental status. 2. Urinary tract infection. 3. Sepsis. 4. Atrial fibrillation. 5. Hypotension. 6. Hypothyroidism. 7. Alzheimer's dementia. 8. Dysphagia. 9. Depression. TREATMENT: 1. Altered mental status is probably secondary to urinary tract infection and sepsis as below. 2. Urinary tract infection/sepsis. An Infectious Disease consultation will be obtained with Dr. Candelario. The patient is currently admitted to the intensive care unit secondary to hypotension. The patient has been started empirically on vancomycin and cefepime. We will await culture results. 3. Atrial fibrillation. Continue metoprolol as above. 4. Hypertension. Continue metoprolol and benazepril as above. 5. Hypothyroidism. Continue Levoxyl as above. TSH is pending. 6. Alzheimer's dementia. Continue Aricept and Namenda as above. 7. Dysphagia. The patient is currently tolerating a soft mechanical diet with honey thick liquids. 8. Depression. Continue Remeron as above. Rodrigo Diaz M.D. DR: KEMI/james JOB#: [id number] CC:
[2016-09-21] MEDS: Vancomycin 750 MG in D5W 250 ML IVPB SCH (22:07)
[2016-09-21] MEDS: Heparin 5000 units/ml inj SUBQ SCH (22:08)
[2016-09-21] MEDS: Metoprolol Tartrate 12.5mg TAB ORAL SCH (22:12)
[2016-09-22] VITALS: BP 128/79
[2016-09-22] MEDS ORDERED: Cefepime 2gm ONE (01:07)
--- NOTE | 2016-09-22 01:28 | Consultation ---
DATE OF CONSULTATION: 09/21/2016 CARDIOLOGY CONSULTATION REFERRING PHYSICIAN: Timo Watkins M.D. REASON FOR CONSULTATION: Atrial fibrillation with rapid ventricular response. HISTORY OF PRESENT ILLNESS: The patient is an 89-year-old lady with history of hypertension, chronic atrial fibrillation, depression, and anxiety and [facility] increased altered level of consciousness. The patient was afebrile. The patient was hypotensive in the emergency room, who was then admitted and Cardiology consultation was obtained for further evaluation and management. At the time of my evaluation, the patient feels confused and is unable to provide any meaningful information, but denies any chest pain. REVIEW OF SYSTEMS: Review of systems was performed and was negative other than what was mentioned in the history of present illness. PAST MEDICAL HISTORY: 1. Hypertension. 2. Atrial fibrillation. 3. Hypothyroidism. 4. Depression. 5. Anxiety. ALLERGIES: She has no known drug allergies. MEDICATIONS: Her medications include metoprolol, Namenda, Remeron, Ativan, and vitamin C. The patient also was on Xarelto 20 mg daily. SOCIAL HISTORY: She lives [facility] a [facility]. Does not smoke or drink alcohol. FAMILY HISTORY: Noncontributory. PHYSICAL EXAMINATION: VITAL SIGNS: Blood pressure is 122/64, pulse is 100, and respirations 20. HEAD AND NECK: Showed no JVD. LUNGS: Clear. CARDIOVASCULAR: Shows regular S1 and S2 with no gallop or murmur. ABDOMEN: Soft and nontender. EXTREMITIES: No pitting edema. LABORATORY AND DIAGNOSTIC DATA: Her EKG showed atrial fibrillation with rapid ventricular response and occasional PVCs. Her labs show a white count of 11.1, hemoglobin 14, hematocrit 43, and platelet count of 174,000. Sodium of 142, potassium 3.7, BUN of 27, creatinine 0.6, and glucose . Troponin is negative. BNP is 2017. INR is 2. ASSESSMENT AND PLAN: 1. Atrial fibrillation with rapid ventricular response. the patient's sepsis even though the patient has chronic atrial fibrillation. The patient was on Xarelto, but currently INR is more than 2. Xarelto and hold off on the beta-karon as the patient's blood pressure may be dropping. Her blood pressure remained stable. resume the patient's metoprolol to control the ventricular response, otherwise may need to give her digoxin. 2. History of hypertension, metoprolol. 3. Sepsis, started on vancomycin. Dr. Candelario. Thank you very much, Dr. Watkins, for allowing me to participate in the care of this patient. Please do not hesitate to contact me for any questions regarding my evaluation. Sheng Caldera M.D. DR: JAQUELIN JOB#: [id number] CC:
[2016-09-22 04:00] VITALS: BP 158/96
[2016-09-22] MEDS: Metoprolol 5mg/5ml Inj IVP PRN (05:41)
[2016-09-22 08:00] VITALS: BP 134/72
[2016-09-22 08:47] LABS: MEAN CORPUSCULAR HEMOGLOBIN 30.7 PG (27.0-31.0); MEAN CORPUSCULAR HGB CONC 32.2 G/DL (32.0-36.0); MEAN CORPUSCULAR VOLUME 96 FL (80-99); MEAN PLATELET VOLUME 6.8 FL (6.5-10.1); PLATELET COUNT 168 K/UL (150-450); RED BLOOD COUNT 4.57 M/UL (4.20-5.40); RED CELL DISTRIBUTION WIDTH 12.8 % (11.6-14.8); WHITE BLOOD COUNT 5.7 K/UL (4.8-10.8)
[2016-09-22 09:09] LABS: ALANINE AMINOTRANSFERASE 17 U/L (3-33); ALBUMIN/GLOBULIN RATIO 0.9 (1.0-2.7); ANION GAP 13 (5-15); ASPARTATE AMINO TRANSFERASE 42 U/L (5-40); CALCIUM 8.5 mg/dL (8.6-10.2); CARBON DIOXIDE 25 mEQ/L (20-30); CHLORIDE 100 mEQ/L (98-107); CREATININE 0.4 mg/dL (0.5-0.9); HEMOLYSIS 6; MAGNESIUM 1.6 mg/dL (1.7-2.5); PHOSPHORUS 2.1 mg/dL (2.5-4.8); POTASSIUM 2.9 mEQ/L (3.4-4.9); SODIUM 138 mEQ/L (135-145); TOTAL PROTEIN 5.3 g/dL (6.6-8.7)
[2016-09-22 09:15] LABS: FREE T3 2.2 pg/mL (2.3-4.2)
[2016-09-22 09:29] LABS: TROPONIN I < 0.30 ng/mL (<=0.30)
[2016-09-22] MEDS: Metoprolol Tartrate 12.5mg TAB ORAL SCH (09:45)
[2016-09-22] MEDS: Heparin 5000 units/ml inj SUBQ SCH ×2 (09:46→21:08)
[2016-09-22 09:48] LABS: BAND NEUTROPHILS % (MANUAL) 11 % (0-8); BASOPHILS % (MANUAL) 0 % (0-2); EOSINOPHILS % (MANUAL) 5 % (0-3); LYMPHOCYTES % (MANUAL) 15 % (20-45); NEUTROPHILS % (MANUAL) 64 % (45-75); PLATELET ESTIMATE ADEQUATE; PLATELET MORPHOLOGY NORMAL; POLYCHROMASIA OCCASIONAL; TOTAL CELLS COUNTED 100
[2016-09-22] MEDS: Vancomycin 750 MG in D5W 250 ML IVPB SCH (10:17)
--- NOTE | 2016-09-22 10:33 | Infectious Diseases Prog Note ---
Assessment/Plan Assessment/Plan A: The patient is an 89-year-old, Probable UTI UCx: P Sepsis improving ALOC improving leukocytosis improving Fever improving no evidence of Pna Cxray : NAPD AFib with rapid ventricular response History of AFib Hypothyroidism Dementia. Osteoarthritis Anxiety Dysphagia Failure to thrive PLAN: cont cefepime d# 2 , DC IV Vanco d# 2 Monitor blood culture. Monitor urine culture. Monitor CBC Monitor BNP Subjective Allergies: Coded Allergies: No Known Allergies (Unverified , 09/20/16) Subjective transferred out of ICU Objective Vital Signs Last 24 Hour Vital Signs Date Time Temp Pulse Resp B/P Pulse Ox O2 Delivery O2 Flow Rate FiO2 09/22/16 09:45 94 134/72 09/22/16 08:00 97.9 94 19 134/72 94 Room Air 09/22/16 05:41 99 158/96 09/22/16 04:00 99 09/22/16 04:00 97.7 109 18 158/96 96 Room Air 09/22/16 00:00 84 09/22/16 00:00 98.1 90 16 128/79 95 Room Air 09/21/16 22:12 89 121/67 09/21/16 20:00 91 09/21/16 20:00 97.7 89 19 121/67 95 Room Air 09/21/16 19:15 109 16 Nasal Cannula 3.0 32 09/21/16 19:15 99 Nasal Cannula 3.0 32 09/21/16 19:15 Nasal Cannula 3.0 32 09/21/16 16:00 91 09/21/16 15:35 97.3 89 123/64 98 2.0 09/21/16 15:00 90 20 126/60 96 Nasal Cannula 5.0 09/21/16 14:00 98.1 87 21 121/66 100 Nasal Cannula 4.0 09/21/16 13:00 88 20 126/60 96 Nasal Cannula 5.0 09/21/16 12:04 82 09/21/16 12:01 97.2 84 22 140/74 95 Nasal Cannula 5.0 09/21/16 11:00 77 18 109/60 95 Nasal Cannula 5.0 Height (Feet): 5 Height (Inches): 8.00 Weight (Pounds): 138 Microbiology Date/Time Source Procedure Growth Status 12/28/16 21:10 Blood Blood Culture - Preliminary NO GROWTH AFTER 24 HOURS Resulted 09/20/16 20:50 Blood Blood Culture - Preliminary NO GROWTH AFTER 24 HOURS Resulted 09/20/16 21:18 Nasal Nares MRSA Culture - Final Staphylococcus Aureus - Mrsa Complete Laboratory Tests Test 09/22/16 08:00 09/22/16 08:05 Sodium Level 138 mEQ/L (135-145) Potassium Level 2.9 mEQ/L (3.4-4.9) L Chloride Level 100 mEQ/L (98-107) Carbon Dioxide Level 25 mEQ/L (20-30) Anion Gap 13 (5-15) Blood Urea Nitrogen 19 mg/dL (7-23) Creatinine 0.4 mg/dL (0.5-0.9) L Estimat Glomerular Filtration Rate mL/min (>60) Glucose Level 104 mg/dL (74-106) # Calcium Level 8.5 mg/dL (8.6-10.2) L Phosphorus Level 2.1 mg/dL (2.5-4.8) L Magnesium Level 1.6 mg/dL (1.7-2.5) L Total Bilirubin 0.7 mg/dL (0.0-1.2) Aspartate Amino Transf (AST/SGOT) 42 U/L (5-40) H Alanine Aminotransferase (ALT/SGPT) 17 U/L (3-33) Alkaline Phosphatase 57 U/L (35-104) Troponin I < 0.30 ng/mL (<=0.30) Pro-B-Type Natriuretic Peptide 1616 pg/mL (0-450) H Total Protein 5.3 g/dL (6.6-8.7) L Albumin 2.6 g/dL (3.5-5.2) L Globulin 2.7 g/dL Albumin/Globulin Ratio 0.9 (1.0-2.7) L Thyroid Stimulating Hormone (TSH) 8.550 uIU/mL (0.300-4.500) Free Thyroxine 1.20 ng/dL (0.86-1.85) Free Triiodothyronine 2.2 pg/mL (2.3-4.2) L Total Triiodothyronine 0.85 ng/mL (0.80-2.00) Triiodothyronine (T3) Uptake Pending Vancomycin Level Trough 15.1 ug/mL (5.0-12.0) H White Blood Count 5.7 K/UL (4.8-10.8) Red Blood Count 4.57 M/UL (4.20-5.40) Hemoglobin 14.0 G/DL (12.0-16.0) Hematocrit 43.6 % (37.0-47.0) Mean Corpuscular Volume 96 FL (80-99) Mean Corpuscular Hemoglobin 30.7 PG (27.0-31.0) Mean Corpuscular Hemoglobin Concent 32.2 G/DL (32.0-36.0) Red Cell Distribution Width 12.8 % (11.6-14.8) Platelet Count 168 K/UL (150-450) Mean Platelet Volume 6.8 FL (6.5-10.1) Neutrophils (%) (Auto) % (45.0-75.0) Lymphocytes (%) (Auto) % (20.0-45.0) Monocytes (%) (Auto) % (1.0-10.0) Eosinophils (%) (Auto) % (0.0-3.0) Basophils (%) (Auto) % (0.0-2.0) Differential Total Cells Counted 100 Neutrophils % (Manual) 64 % (45-75) Lymphocytes % (Manual) 15 % (20-45) L Monocytes % (Manual) 5 % (1-10) Eosinophils % (Manual) 5 % (0-3) H Basophils % (Manual) 0 % (0-2) Band Neutrophils 11 % (0-8) H Platelet Estimate Adequate Platelet Morphology Normal Polychromasia Occasional Current Medications Medications (Trade) Dose Ordered Sig/Gary Route PRN Reason Start Time Stop Time Status Last Admin Dose Admin Acetaminophen (Tylenol) 650 mg Q4H PRN ORAL FEVER 09/21/16 15:30 10/21/16 15:29 Albuterol/ Ipratropium (DuoNeb 0.5-3(2.5)mg/3ml) 3 ml Q4H PRN HHN Shortness of Breath 09/21/16 15:30 09/26/16 15:29 Cefepime HCl 2 gm/ Dextrose 100 ml @ 100 mls/hr Q24H IV 09/22/16 01:00 09/27/16 00:59 09/22/16 01:17 Dextrose (Dextrose 50%) STAT PRN IV Hypoglycemia 09/21/16 15:30 10/21/16 15:29 Heparin Sodium (Porcine) (Heparin 5000 units/ml) 5,000 units EVERY 12 HOURS SUBQ 09/21/16 21:00 10/21/16 20:59 09/22/16 09:46 Lorazepam (Ativan 2mg/ml 1ml) 2 mg Q2H PRN IV For Anxiety 09/21/16 15:30 09/28/16 15:29 Metoprolol Tartrate (Lopressor) 5 mg Q1H PRN IVP HR>120 09/21/16 15:00 10/21/16 14:59 09/22/16 05:41 Metoprolol Tartrate (Lopressor) 12.5 mg Q12HR ORAL 09/21/16 21:00 10/21/16 20:59 09/22/16 09:45 Morphine Sulfate (Morphine Sulfate) 4 mg Q4H PRN IVP Severe Pain (Pain Scale 7-10) 09/21/16 15:30 09/28/16 15:29 Ondansetron HCl (Zofran) 4 mg Q6H PRN IVP Nausea & Vomiting 09/21/16 15:15 10/21/16 15:14 Polyethylene Glycol (Miralax) 17 gm DAILYPRN PRN ORAL Constipation 09/21/16 15:30 10/21/16 15:29 Sodium Chloride 1,000 ml @ 50 mls/hr Q20H IV 09/21/16 15:45 10/21/16 15:44 09/21/16 16:45 Vancomycin HCl/ Dextrose (Vancomycin/D5W 250ml) 250 ml @ 167 mls/hr Q12H IVPB 09/21/16 21:00 09/26/16 20:59 09/22/16 10:17 JAMIL TOWNSEND M.D. Sep 22, 2016 10:33
[2016-09-22 12:00] VITALS: BP 155/96
--- NOTE | 2016-09-22 14:48 | Cardiac Electrophysiology PN ---
Assessment/Plan Assessment/Plan 1. Atrial fibrillation with rapid ventricular response. Increase Metoprolol to 50 bid as still tachycardic. Not a candidate for Xarelto for severe MR 2. History of hypertension. Increase Metoprolol to 50 bid. 3. 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 Sepsis, On vancomycin per Dr. Candelario. 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 No chest pain or SOB.Had video swallow. Now on mechanical soft diet. Objective Last 24 Hour Vital Signs Date Time Temp Pulse Resp B/P Pulse Ox O2 Delivery O2 Flow Rate FiO2 09/22/16 12:00 98.2 89 18 155/96 93 Room Air 09/22/16 09:45 94 134/72 09/22/16 08:00 92 09/22/16 08:00 97.9 94 19 134/72 94 Room Air 09/22/16 05:41 99 158/96 09/22/16 04:00 99 09/22/16 04:00 97.7 109 18 158/96 96 Room Air 09/22/16 00:00 84 09/22/16 00:00 98.1 90 16 128/79 95 Room Air 09/21/16 22:12 89 121/67 09/21/16 20:00 91 09/21/16 20:00 97.7 89 19 121/67 95 Room Air 09/21/16 19:15 109 16 Nasal Cannula 3.0 32 09/21/16 19:15 99 Nasal Cannula 3.0 32 09/21/16 19:15 Nasal Cannula 3.0 32 09/21/16 16:00 91 09/21/16 15:35 97.3 89 123/64 98 2.0 09/21/16 15:00 90 20 126/60 96 Nasal Cannula 5.0 Intake and Output 09/21/16 09/22/16 19:00 07:00 Intake Total 1284 ml 1084 ml Output Total 320 ml 700 ml Balance 964 ml 384 ml Intake Oral 500 ml 100 ml IV Total 784 ml 984 ml Output Urine Total 320 ml 700 ml # Bowel Movements 2 Laboratory Tests Test 09/22/16 08:00 09/22/16 08:05 Sodium Level 138 mEQ/L (135-145) Potassium Level 2.9 mEQ/L (3.4-4.9) L Chloride Level 100 mEQ/L (98-107) Carbon Dioxide Level 25 mEQ/L (20-30) Anion Gap 13 (5-15) Blood Urea Nitrogen 19 mg/dL (7-23) Creatinine 0.4 mg/dL (0.5-0.9) L Estimat Glomerular Filtration Rate mL/min (>60) Glucose Level 104 mg/dL (74-106) # Calcium Level 8.5 mg/dL (8.6-10.2) L Phosphorus Level 2.1 mg/dL (2.5-4.8) L Magnesium Level 1.6 mg/dL (1.7-2.5) L Total Bilirubin 0.7 mg/dL (0.0-1.2) Aspartate Amino Transf (AST/SGOT) 42 U/L (5-40) H Alanine Aminotransferase (ALT/SGPT) 17 U/L (3-33) Alkaline Phosphatase 57 U/L (35-104) Troponin I < 0.30 ng/mL (<=0.30) Pro-B-Type Natriuretic Peptide 1616 pg/mL (0-450) H Total Protein 5.3 g/dL (6.6-8.7) L Albumin 2.6 g/dL (3.5-5.2) L Globulin 2.7 g/dL Albumin/Globulin Ratio 0.9 (1.0-2.7) L Thyroid Stimulating Hormone (TSH) 8.550 uIU/mL (0.300-4.500) Free Thyroxine 1.20 ng/dL (0.86-1.85) Free Triiodothyronine 2.2 pg/mL (2.3-4.2) L Total Triiodothyronine 0.85 ng/mL (0.80-2.00) Triiodothyronine (T3) Uptake Pending Vancomycin Level Trough 15.1 ug/mL (5.0-12.0) H White Blood Count 5.7 K/UL (4.8-10.8) Red Blood Count 4.57 M/UL (4.20-5.40) Hemoglobin 14.0 G/DL (12.0-16.0) Hematocrit 43.6 % (37.0-47.0) Mean Corpuscular Volume 96 FL (80-99) Mean Corpuscular Hemoglobin 30.7 PG (27.0-31.0) Mean Corpuscular Hemoglobin Concent 32.2 G/DL (32.0-36.0) Red Cell Distribution Width 12.8 % (11.6-14.8) Platelet Count 168 K/UL (150-450) Mean Platelet Volume 6.8 FL (6.5-10.1) Neutrophils (%) (Auto) % (45.0-75.0) Lymphocytes (%) (Auto) % (20.0-45.0) Monocytes (%) (Auto) % (1.0-10.0) Eosinophils (%) (Auto) % (0.0-3.0) Basophils (%) (Auto) % (0.0-2.0) Differential Total Cells Counted 100 Neutrophils % (Manual) 64 % (45-75) Lymphocytes % (Manual) 15 % (20-45) L Monocytes % (Manual) 5 % (1-10) Eosinophils % (Manual) 5 % (0-3) H Basophils % (Manual) 0 % (0-2) Band Neutrophils 11 % (0-8) H Platelet Estimate Adequate Platelet Morphology Normal Polychromasia Occasional Microbiology Date/Time Source Procedure Growth Status 09/20/16 21:10 Blood Blood Culture - Preliminary NO GROWTH AFTER 24 HOURS Resulted 09/20/16 20:50 Blood Blood Culture - Preliminary NO GROWTH AFTER 24 HOURS Resulted 09/20/16 21:18 Nasal Nares MRSA Culture - Final Staphylococcus Aureus - Mrsa Complete 09/20/16 21:15 Urine,Clean Catch Urine Culture - Preliminary Gram Negative Bacillus 1 Resulted Objective HEAD AND NECK: Showed no JVD. LUNGS: Clear. CARDIOVASCULAR: Tachycardic Irregular S1 and S2 with no gallop or murmur. ABDOMEN: Soft and nontender. EXTREMITIES: No pitting edema. KAISER RODRIGUEZ Sep 22, 2016 14:47
--- NOTE | 2016-09-22 15:01 | Pulmonology Progress Note ---
Assessment/Plan Problems: (1) Acute encephalopathy (2) Atrial fibrillation (3) Altered level of consciousness (4) Severe sepsis (5) Depression (6) Hypothyroidism (7) intermediate resident Assessment/Plan wbc decreasing continue antibiotics heart rate needs to be controlled better Blood pressure better keep in teli for now d/w dr avila Subjective ROS Limited/Unobtainable: No Constitutional: Reports: no symptoms HEENT: Repors: no symptoms Respiratory: Reports: no symptoms Allergies: Coded Allergies: No Known Allergies (Unverified , 09/20/16) Objective Last 24 Hour Vital Signs Date Time Temp Pulse Resp B/P Pulse Ox O2 Delivery O2 Flow Rate FiO2 09/22/16 12:00 98.2 89 18 155/96 93 Room Air 09/22/16 09:45 94 134/72 09/22/16 08:00 92 09/22/16 08:00 97.9 94 19 134/72 94 Room Air 09/22/16 06:35 93 19 Room Air 09/22/16 06:35 Room Air 09/22/16 06:35 93 Room Air 21 09/22/16 05:41 99 158/96 09/22/16 04:00 99 09/22/16 04:00 97.7 109 18 158/96 96 Room Air 09/22/16 00:00 84 09/22/16 00:00 98.1 90 16 128/79 95 Room Air 09/21/16 22:12 89 121/67 09/21/16 20:00 91 09/21/16 20:00 97.7 89 19 121/67 95 Room Air 09/21/16 19:15 109 16 Nasal Cannula 3.0 32 09/21/16 19:15 99 Nasal Cannula 3.0 32 09/21/16 19:15 Nasal Cannula 3.0 32 09/21/16 16:00 91 09/21/16 15:35 97.3 89 123/64 98 2.0 09/21/16 15:00 90 20 126/60 96 Nasal Cannula 5.0 Intake and Output 09/21/16 09/22/16 19:00 07:00 Intake Total 1284 ml 1084 ml Output Total 320 ml 700 ml Balance 964 ml 384 ml Intake Oral 500 ml 100 ml IV Total 784 ml 984 ml Output Urine Total 320 ml 700 ml # Bowel Movements 2 General Appearance: cachetic HEENT: normocephalic, atraumatic Respiratory/Chest: chest wall non-tender, lungs clear Cardiovascular: normal peripheral pulses, normal rate Abdomen: normal bowel sounds, soft, non tender Neurologic/Psychiatric: verification lead II-XII grossly normal, no motor/sensory deficits Microbiology Date/Time Source Procedure Growth Status 09/20/16 21:10 Blood Blood Culture - Preliminary NO GROWTH AFTER 24 HOURS Resulted 09/20/16 20:50 Blood Blood Culture - Preliminary NO GROWTH AFTER 24 HOURS Resulted 09/20/16 21:18 Nasal Nares MRSA Culture - Final Staphylococcus Aureus - Mrsa Complete 09/20/16 21:15 Urine,Clean Catch Urine Culture - Preliminary Gram Negative Bacillus 1 Resulted Laboratory Tests 09/22/16 08:00: Sodium Level 138, Potassium Level 2.9L, Chloride Level 100, Carbon Dioxide Level 25, Anion Gap 13, Blood Urea Nitrogen 19, Creatinine 0.4L, Estimat Glomerular Filtration Rate , Glucose Level 104#, Calcium Level 8.5L, Phosphorus Level 2.1L, Magnesium Level 1.6L, Total Bilirubin 0.7, Aspartate Amino Transf ( AST/SGOT) 42H, Alanine Aminotransferase (ALT/SGPT) 17, Alkaline Phosphatase 57, Troponin I < 0.30, Pro-B-Type Natriuretic Peptide 1616H, Total Protein 5.3L, Albumin 2.6L, Globulin 2.7, Albumin/Globulin Ratio 0.9L, Thyroid Stimulating Hormone (TSH) 8.550H, Free Thyroxine 1.20, Free Triiodothyronine 2.2L, Total Triiodothyronine 0.85, Triiodothyronine (T3) Uptake [Pending], Vancomycin Level Trough 15.1H 09/22/16 08:05: White Blood Count 5.7, Red Blood Count 4.57, Hemoglobin 14.0, Hematocrit 43.6, Mean Corpuscular Volume 96, Mean Corpuscular Hemoglobin 30.7, Mean Corpuscular Hemoglobin Concent 32.2, Red Cell Distribution Width 12.8, Platelet Count 168, Mean Platelet Volume 6.8, Neutrophils (%) (Auto) , Lymphocytes (%) (Auto) , Monocytes (%) (Auto) , Eosinophils (%) (Auto) , Basophils (%) (Auto) , Differential Total Cells Counted 100, Neutrophils % (Manual) 64, Lymphocytes % ( Manual) 15L, Monocytes % (Manual) 5, Eosinophils % (Manual) 5H, Basophils % ( Manual) 0, Band Neutrophils 11H, Platelet Estimate Adequate, Platelet Morphology Normal, Polychromasia Occasional Current Medications Medications (Trade) Dose Ordered Sig/Gary Route PRN Reason Start Time Stop Time Status Last Admin Dose Admin Acetaminophen (Tylenol) 650 mg Q4H PRN ORAL FEVER 09/21/16 15:30 10/21/16 15:29 Albuterol/ Ipratropium (DuoNeb 0.5-3(2.5)mg/3ml) 3 ml Q4H PRN HHN Shortness of Breath 09/21/16 15:30 09/26/16 15:29 Cefepime HCl/ Dextrose (Maxipime/D5W 100ml) 100 ml @ 100 mls/hr Q24H IV 09/22/16 01:00 09/27/16 00:59 09/22/16 01:17 Dextrose (Dextrose 50%) STAT PRN IV Hypoglycemia 09/21/16 15:30 10/21/16 15:29 Heparin Sodium (Porcine) (Heparin 5000 units/ml) 5,000 units EVERY 12 HOURS SUBQ 09/21/16 21:00 10/21/16 20:59 09/22/16 09:46 Lorazepam (Ativan 2mg/ml 1ml) 2 mg Q2H PRN IV For Anxiety 09/21/16 15:30 09/28/16 15:29 Metoprolol Tartrate (Lopressor) 5 mg Q1H PRN IVP HR>120 09/21/16 15:00 10/21/16 14:59 09/22/16 05:41 Metoprolol Tartrate (Lopressor) 50 mg BID ORAL 09/22/16 18:00 10/22/16 17:59 UNV Morphine Sulfate (Morphine Sulfate) 4 mg Q4H PRN IVP Severe Pain (Pain Scale 7-10) 09/21/16 15:30 09/28/16 15:29 Ondansetron HCl (Zofran) 4 mg Q6H PRN IVP Nausea & Vomiting 09/21/16 15:15 10/21/16 15:14 Polyethylene Glycol 17 gm 17 gm DAILYPRN PRN ORAL Constipation 09/21/16 15:30 10/21/16 15:29 Potassium Chloride (KCl 10mEq/100ml Premix) 100 ml @ 100 mls/hr Q1H IVPB 09/22/16 15:30 09/22/16 19:29 Sodium Chloride 1,000 ml @ 50 mls/hr Q20H IV 09/21/16 15:45 10/21/16 15:44 09/22/16 11:58 LEONORA XIAO Sep 22, 2016 15:01
[2016-09-22 16:00] VITALS: BP 149/88
--- NOTE | 2016-09-22 17:04 | Internal Med Progress Note ---
Subjective Date of Service: Sep 22, 2016 Physician Name Angeli Milner Attending Physician Timo Watkins MD Current Medications Medications (Trade) Dose Ordered Sig/Gary Route PRN Reason Start Time Stop Time Status Last Admin Dose Admin Acetaminophen (Tylenol) 650 mg Q4H PRN ORAL FEVER 09/21/16 15:30 10/21/16 15:29 Albuterol/ Ipratropium (DuoNeb 0.5-3(2.5)mg/3ml) 3 ml Q4H PRN HHN Shortness of Breath 09/21/16 15:30 09/26/16 15:29 Cefepime HCl/ Dextrose (Maxipime/D5W 100ml) 100 ml @ 100 mls/hr Q24H IV 09/22/16 01:00 09/27/16 00:59 09/22/16 01:17 Dextrose (Dextrose 50%) STAT PRN IV Hypoglycemia 09/21/16 15:30 10/21/16 15:29 Heparin Sodium (Porcine) (Heparin 5000 units/ml) 5,000 units EVERY 12 HOURS SUBQ 09/21/16 21:00 10/21/16 20:59 09/22/16 09:46 Lorazepam (Ativan 2mg/ml 1ml) 2 mg Q2H PRN IV For Anxiety 09/21/16 15:30 09/28/16 15:29 Magnesium Sulfate (Magnesium Sulfate 1gm/100ml) 100 ml @ 100 mls/hr Q1H IVPB 09/22/16 17:00 09/22/16 18:59 Metoprolol Tartrate (Lopressor) 5 mg Q1H PRN IVP HR>120 09/21/16 15:00 10/21/16 14:59 09/22/16 05:41 Metoprolol Tartrate 50 mg 50 mg BID ORAL 09/22/16 18:00 10/22/16 17:59 Morphine Sulfate (Morphine Sulfate) 4 mg Q4H PRN IVP Severe Pain (Pain Scale 7-10) 09/21/16 15:30 09/28/16 15:29 Ondansetron HCl (Zofran) 4 mg Q6H PRN IVP Nausea & Vomiting 09/21/16 15:15 10/21/16 15:14 Polyethylene Glycol 17 gm 17 gm DAILYPRN PRN ORAL Constipation 09/21/16 15:30 10/21/16 15:29 Potassium Phosphate 30 mm/ Sodium Chloride 510 ml @ 83 mls/hr ONCE IV 09/22/16 17:00 10/22/16 16:59 Potassium Chloride (K-Dur) 20 meq DAILY ORAL 09/23/16 09:00 10/23/16 08:59 UNV Potassium Chloride (KCl 10mEq/100ml Premix) 100 ml @ 100 mls/hr Q1H IVPB 09/22/16 15:30 09/22/16 19:29 09/22/16 16:35 Sodium Chloride 1,000 ml @ 50 mls/hr Q20H IV 09/21/16 15:45 10/21/16 15:44 09/22/16 11:58 Allergies: Coded Allergies: No Known Allergies (Unverified , 09/20/16) ROS Limited/Unobtainable: Yes Subjective Cover for Int Med-Dr Watkins. Still confused "Can you call my parents? They live nearby". Objective Last Vital Signs Date Time Temp Pulse Resp B/P Pulse Ox O2 Delivery O2 Flow Rate FiO2 09/22/16 16:00 97.5 63 15 149/88 96 Room Air 09/22/16 06:35 21 09/21/16 19:15 3.0 General Appearance: WD/WN, no apparent distress, alert EENT: PERRL/EOMI, normal ENT inspection Neck: non-tender, normal alignment, supple, normal inspection Cardiovascular: normal peripheral pulses, normal rate, no gallop/murmur, no JVD , irregularly irregular Respiratory/Chest: chest wall non-tender, lungs clear, normal breath sounds, no respiratory distress, no accessory muscle use Abdomen: normal bowel sounds, non tender, soft, no organomegaly, no mass Extremities: normal range of motion 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 Skin: normal pigmentation, warm/dry Laboratory Tests Test 09/22/16 08:00 09/22/16 08:05 Sodium Level 138 mEQ/L (135-145) Potassium Level 2.9 mEQ/L (3.4-4.9) L Chloride Level 100 mEQ/L (98-107) Carbon Dioxide Level 25 mEQ/L (20-30) Anion Gap 13 (5-15) Blood Urea Nitrogen 19 mg/dL (7-23) Creatinine 0.4 mg/dL (0.5-0.9) L Estimat Glomerular Filtration Rate mL/min (>60) Glucose Level 104 mg/dL (74-106) # Calcium Level 8.5 mg/dL (8.6-10.2) L Phosphorus Level 2.1 mg/dL (2.5-4.8) L Magnesium Level 1.6 mg/dL (1.7-2.5) L Total Bilirubin 0.7 mg/dL (0.0-1.2) Aspartate Amino Transf (AST/SGOT) 42 U/L (5-40) H Alanine Aminotransferase (ALT/SGPT) 17 U/L (3-33) Alkaline Phosphatase 57 U/L (35-104) Troponin I < 0.30 ng/mL (<=0.30) Pro-B-Type Natriuretic Peptide 1616 pg/mL (0-450) H Total Protein 5.3 g/dL (6.6-8.7) L Albumin 2.6 g/dL (3.5-5.2) L Globulin 2.7 g/dL Albumin/Globulin Ratio 0.9 (1.0-2.7) L Thyroid Stimulating Hormone (TSH) 8.550 uIU/mL (0.300-4.500) Free Thyroxine 1.20 ng/dL (0.86-1.85) Free Triiodothyronine 2.2 pg/mL (2.3-4.2) L Total Triiodothyronine 0.85 ng/mL (0.80-2.00) Triiodothyronine (T3) Uptake Pending Vancomycin Level Trough 15.1 ug/mL (5.0-12.0) H White Blood Count 5.7 K/UL (4.8-10.8) Red Blood Count 4.57 M/UL (4.20-5.40) Hemoglobin 14.0 G/DL (12.0-16.0) Hematocrit 43.6 % (37.0-47.0) Mean Corpuscular Volume 96 FL (80-99) Mean Corpuscular Hemoglobin 30.7 PG (27.0-31.0) Mean Corpuscular Hemoglobin Concent 32.2 G/DL (32.0-36.0) Red Cell Distribution Width 12.8 % (11.6-14.8) Platelet Count 168 K/UL (150-450) Mean Platelet Volume 6.8 FL (6.5-10.1) Neutrophils (%) (Auto) % (45.0-75.0) Lymphocytes (%) (Auto) % (20.0-45.0) Monocytes (%) (Auto) % (1.0-10.0) Eosinophils (%) (Auto) % (0.0-3.0) Basophils (%) (Auto) % (0.0-2.0) Differential Total Cells Counted 100 Neutrophils % (Manual) 64 % (45-75) Lymphocytes % (Manual) 15 % (20-45) L Monocytes % (Manual) 5 % (1-10) Eosinophils % (Manual) 5 % (0-3) H Basophils % (Manual) 0 % (0-2) Band Neutrophils 11 % (0-8) H Platelet Estimate Adequate Platelet Morphology Normal Polychromasia Occasional Microbiology Date/Time Source Procedure Growth Status 09/20/16 21:10 Blood Blood Culture - Preliminary NO GROWTH AFTER 24 HOURS Resulted 09/20/16 20:50 Blood Blood Culture - Preliminary NO GROWTH AFTER 24 HOURS Resulted 09/20/16 21:18 Nasal Nares MRSA Culture - Final Staphylococcus Aureus - Mrsa Complete 09/20/16 21:15 Urine,Clean Catch Urine Culture - Preliminary Gram Negative Bacillus 1 Resulted Intake and Output 09/21/16 09/22/16 19:00 07:00 Intake Total 1284 ml 1084 ml Output Total 320 ml 700 ml Balance 964 ml 384 ml Intake Oral 500 ml 100 ml IV Total 784 ml 984 ml Output Urine Total 320 ml 700 ml # Bowel Movements 2 Assessment/Plan Problem List: (1) Altered mental status Assessment & Plan: Still confused. (2) UTI (urinary tract infection) Assessment & Plan: Gram neg lloyd. Await cult and sens. Cont vanco and cefepime for now. (3) Sepsis (4) HTN (hypertension) Assessment & Plan: Cont metoprolol (5) CHF (congestive heart failure) (6) Alzheimer's dementia (7) Hypokalemia Assessment & Plan: Replace potassium IV (8) Dysphagia (9) Atrial fibrillation Assessment & Plan: See cardiology note. (10) Hypothyroidism (11) Depression Status: not improved ANGELI MILNER Sep 22, 2016 17:04
[2016-09-22] MEDS: Metoprolol 50mg tab ORAL SCH (18:46)
[2016-09-22 20:04] VITALS: BP 130/94
[2016-09-23 00:10] VITALS: BP 145/94
[2016-09-23 04:05] VITALS: BP 146/92
[2016-09-23 06:53] LABS: BASOPHILS % (AUTO) 1.3 % (0.0-2.0); EOSINOPHILS % (AUTO) 7.2 % (0.0-3.0); LYMPHOCYTES % (AUTO) 10.7 % (20.0-45.0); MEAN CORPUSCULAR HEMOGLOBIN 31.4 PG (27.0-31.0); MEAN CORPUSCULAR VOLUME 95 FL (80-99); MEAN PLATELET VOLUME 7.4 FL (6.5-10.1); MONOCYTES % (AUTO) 7.8 % (1.0-10.0); PLATELET COUNT 181 K/UL (150-450); RED BLOOD COUNT 4.51 M/UL (4.20-5.40); RED CELL DISTRIBUTION WIDTH 12.9 % (11.6-14.8); WHITE BLOOD COUNT 6.2 K/UL (4.8-10.8)
[2016-09-23 07:26] LABS: ANION GAP 18 (5-15); CALCIUM 8.2 mg/dL (8.6-10.2); CARBON DIOXIDE 20 mEQ/L (20-30); CHLORIDE 99 mEQ/L (98-107); CREATININE 0.4 mg/dL (0.5-0.9); HEMOLYSIS 15; POTASSIUM 3.8 mEQ/L (3.4-4.9); SODIUM 137 mEQ/L (135-145)
[2016-09-23 07:31] LABS: INR 1.2 (0.9-1.1); PROTHROMBIN TIME 12.3 SEC (9.30-11.50)
[2016-09-23 08:03] VITALS: BP 146/91
[2016-09-23] MEDS: Metoprolol 50mg tab ORAL SCH ×2 (08:05→17:58)
[2016-09-23] MEDS: Heparin 5000 units/ml inj SUBQ SCH ×2 (08:06→20:16)
--- NOTE | 2016-09-23 08:13 | Infectious Diseases Prog Note ---
Assessment/Plan Assessment/Plan A: The patient is an 89-year-old, K.pneumoniae UTI - sensi pending Sepsis SP ALOC improving leukocytosis SP Fever SP no evidence of Pna Cxray : NAPD AFib with rapid ventricular response History of AFib Hypothyroidism Dementia. Osteoarthritis Anxiety Dysphagia Failure to thrive NKDA Full Code PLAN: cont cefepime d# 3 / 5 pending C&S ( 09/22 SP IV Vanco d# 2 ) Monitor blood culture. Monitor urine culture. Monitor CBC Monitor BNP Subjective Allergies: Coded Allergies: No Known Allergies (Unverified , 09/20/16) Subjective fevers resolved. comfortable Objective Vital Signs Last 24 Hour Vital Signs Date Time Temp Pulse Resp B/P Pulse Ox O2 Delivery O2 Flow Rate FiO2 09/23/16 08:09 Nasal Cannula 2.0 09/23/16 08:09 99 Nasal Cannula 2.0 09/23/16 08:08 87 16 Nasal Cannula 2.0 28 09/23/16 08:05 83 130/94 09/23/16 08:03 96.1 87 18 146/91 99 Nasal Cannula 2.0 09/23/16 04:10 18 96 Nasal Cannula 2.0 09/23/16 04:05 97.6 88 17 146/92 94 Room Air 09/23/16 04:00 89 09/23/16 00:10 97.2 85 19 145/94 96 Room Air 09/23/16 00:00 90 09/22/16 20:04 98.2 83 13 130/94 94 Room Air 09/22/16 20:00 80 09/22/16 19:30 98 16 Room Air 21 09/22/16 19:30 Room Air 21 09/22/16 19:30 94 Room Air 21 09/22/16 18:46 111 149/88 09/22/16 16:00 111 09/22/16 16:00 97.5 63 15 149/88 96 Room Air 09/22/16 12:00 92 09/22/16 12:00 98.2 89 18 155/96 93 Room Air 09/22/16 09:45 94 134/72 Height (Feet): 5 Height (Inches): 8.00 Weight (Pounds): 138 General Appearance: no acute distress Respiratory/Chest: no respiratory distress Cardiovascular: normal rate, regular rhythm Abdomen: normal bowel sounds, soft, non tender, non distended Microbiology Date/Time Source Procedure Growth Status 09/20/16 21:10 Blood Blood Culture - Preliminary NO GROWTH AFTER 48 HOURS Resulted 09/20/16 20:50 Blood Blood Culture - Preliminary NO GROWTH AFTER 48 HOURS Resulted 09/20/16 21:18 Nasal Nares MRSA Culture - Final Staphylococcus Aureus - Mrsa Complete 09/20/16 21:15 Urine,Clean Catch Urine Culture - Preliminary Klebsiella Pneumoniae Resulted 09/20/16 21:18 Rectum VRE Culture - Final NO VANCOMYCIN RESISTANT ENTEROCOCCUS ... Complete Laboratory Tests Test 09/23/16 05:50 White Blood Count 6.2 K/UL (4.8-10.8) Red Blood Count 4.51 M/UL (4.20-5.40) Hemoglobin 14.1 G/DL (12.0-16.0) Hematocrit 42.9 % (37.0-47.0) Mean Corpuscular Volume 95 FL (80-99) Mean Corpuscular Hemoglobin 31.4 PG (27.0-31.0) H Mean Corpuscular Hemoglobin Concent 33.0 G/DL (32.0-36.0) Red Cell Distribution Width 12.9 % (11.6-14.8) Platelet Count 181 K/UL (150-450) Mean Platelet Volume 7.4 FL (6.5-10.1) Neutrophils (%) (Auto) 73.0 % (45.0-75.0) Lymphocytes (%) (Auto) 10.7 % (20.0-45.0) L Monocytes (%) (Auto) 7.8 % (1.0-10.0) Eosinophils (%) (Auto) 7.2 % (0.0-3.0) H Basophils (%) (Auto) 1.3 % (0.0-2.0) Prothrombin Time 12.3 SEC (9.30-11.50) H Prothromb Time International Ratio 1.2 (0.9-1.1) H Sodium Level 137 mEQ/L (135-145) Potassium Level 3.8 mEQ/L (3.4-4.9) Chloride Level 99 mEQ/L (98-107) Carbon Dioxide Level 20 mEQ/L (20-30) Anion Gap 18 (5-15) H Blood Urea Nitrogen 13 mg/dL (7-23) Creatinine 0.4 mg/dL (0.5-0.9) L Estimat Glomerular Filtration Rate mL/min (>60) Glucose Level 116 mg/dL (74-106) H Calcium Level 8.2 mg/dL (8.6-10.2) L Pro-B-Type Natriuretic Peptide 2953 pg/mL (0-450) H Current Medications Medications (Trade) Dose Ordered Sig/Gary Route PRN Reason Start Time Stop Time Status Last Admin Dose Admin Acetaminophen (Tylenol) 650 mg Q4H PRN ORAL FEVER 09/21/16 15:30 10/21/16 15:29 Albuterol/ Ipratropium (DuoNeb 0.5-3(2.5)mg/3ml) 3 ml Q4H PRN HHN Shortness of Breath 09/21/16 15:30 09/26/16 15:29 Cefepime HCl/ Dextrose (Maxipime/D5W 100ml) 100 ml @ 100 mls/hr Q24H IV 09/22/16 01:00 09/27/16 00:59 09/23/16 01:10 Dextrose (Dextrose 50%) STAT PRN IV Hypoglycemia 09/21/16 15:30 10/21/16 15:29 Heparin Sodium (Porcine) (Heparin 5000 units/ml) 5,000 units EVERY 12 HOURS SUBQ 09/21/16 21:00 10/21/16 20:59 09/23/16 08:06 Lorazepam (Ativan 2mg/ml 1ml) 2 mg Q2H PRN IV For Anxiety 09/21/16 15:30 09/28/16 15:29 Metoprolol Tartrate (Lopressor) 5 mg Q1H PRN IVP HR>120 09/21/16 15:00 10/21/16 14:59 09/22/16 05:41 Metoprolol Tartrate 50 mg 50 mg BID ORAL 09/22/16 18:00 10/22/16 17:59 09/23/16 08:05 Morphine Sulfate (Morphine Sulfate) 4 mg Q4H PRN IVP Severe Pain (Pain Scale 7-10) 09/21/16 15:30 09/28/16 15:29 Ondansetron HCl (Zofran) 4 mg Q6H PRN IVP Nausea & Vomiting 09/21/16 15:15 10/21/16 15:14 Polyethylene Glycol (Miralax) 17 gm DAILYPRN PRN ORAL Constipation 09/21/16 15:30 10/21/16 15:29 Potassium Phosphate/Sodium Chloride (Potassium Phosphate/NS 500ml bag) 510 ml @ 83 mls/hr ONCE IV 09/22/16 17:00 10/22/16 16:59 09/22/16 18:46 Potassium Chloride (K-Dur) 20 meq DAILY ORAL 09/23/16 09:00 10/23/16 08:59 09/23/16 08:04 Sodium Chloride 1,000 ml @ 50 mls/hr Q20H IV 09/21/16 15:45 10/21/16 15:44 09/23/16 07:58 ОЛЕГ HEREDIA Sep 23, 2016 08:13
[2016-09-23 11:13] VITALS: BP 160/95
--- NOTE | 2016-09-23 12:26 | Pulmonology Progress Note ---
Assessment/Plan Problems: (1) Acute encephalopathy (2) Atrial fibrillation (3) Altered level of consciousness (4) Severe sepsis (5) Depression (6) Hypothyroidism (7) correction resident Assessment/Plan wbc decreasing continue antibiotics heart rate controlled better Blood pressure better keep in teli for now d/w dr avila echo is being done now Subjective ROS Limited/Unobtainable: No Interval Events: doing better Allergies: Coded Allergies: No Known Allergies (Unverified , 09/20/16) Objective Last 24 Hour Vital Signs Date Time Temp Pulse Resp B/P Pulse Ox O2 Delivery O2 Flow Rate FiO2 09/23/16 11:13 96.3 83 18 160/95 95 Nasal Cannula 2.0 09/23/16 08:09 Nasal Cannula 2.0 28 09/23/16 08:09 99 Nasal Cannula 2.0 28 09/23/16 08:08 87 16 Nasal Cannula 2.0 09/23/16 08:05 83 130/94 09/23/16 08:03 96.1 87 18 146/91 99 Nasal Cannula 2.0 09/23/16 08:00 84 09/23/16 04:10 18 96 Nasal Cannula 2.0 09/23/16 04:05 97.6 88 17 146/92 94 Room Air 09/23/16 04:00 89 09/23/16 00:10 97.2 85 19 145/94 96 Room Air 09/23/16 00:00 90 09/22/16 20:04 98.2 83 13 130/94 94 Room Air 09/22/16 20:00 80 09/22/16 19:30 98 16 Room Air 21 09/22/16 19:30 Room Air 21 09/22/16 19:30 94 Room Air 21 09/22/16 18:46 111 149/88 09/22/16 16:00 111 09/22/16 16:00 97.5 63 15 149/88 96 Room Air Intake and Output 09/22/16 09/23/16 19:00 07:00 Intake Total 1012.5 ml 546 ml Output Total 250 ml 450 ml Balance 762.5 ml 96 ml IV Total 1012.5 ml 546 ml Output Urine Total 250 ml 450 ml # Bowel Movements 2 1 General Appearance: WD/WN HEENT: normocephalic, atraumatic Respiratory/Chest: chest wall non-tender, lungs clear Cardiovascular: normal peripheral pulses, normal rate Abdomen: normal bowel sounds, soft, non tender Genitourinary: normal external genitalia Extremities: no cyanosis Skin: no rash, no ulcers Microbiology Date/Time Source Procedure Growth Status 09/20/16 21:10 Blood Blood Culture - Preliminary NO GROWTH AFTER 48 HOURS Resulted 09/20/16 20:50 Blood Blood Culture - Preliminary NO GROWTH AFTER 48 HOURS Resulted 09/20/16 21:18 Nasal Nares MRSA Culture - Final Staphylococcus Aureus - Mrsa Complete 09/20/16 21:15 Urine,Clean Catch Urine Culture - Preliminary Klebsiella Pneumoniae Resulted 09/20/16 21:18 Rectum VRE Culture - Final NO VANCOMYCIN RESISTANT ENTEROCOCCUS ... Complete Laboratory Tests 09/23/16 05:50: White Blood Count 6.2, Red Blood Count 4.51, Hemoglobin 14.1, Hematocrit 42.9, Mean Corpuscular Volume 95, Mean Corpuscular Hemoglobin 31.4H, Mean Corpuscular Hemoglobin Concent 33.0, Red Cell Distribution Width 12.9, Platelet Count 181, Mean Platelet Volume 7.4, Neutrophils (%) (Auto) 73.0, Lymphocytes (%) (Auto) 10.7L, Monocytes (%) (Auto) 7.8, Eosinophils (%) (Auto) 7.2H, Basophils (%) ( Auto) 1.3, Prothrombin Time 12.3H, Prothromb Time International Ratio 1.2H, Sodium Level 137, Potassium Level 3.8, Chloride Level 99, Carbon Dioxide Level 20, Anion Gap 18H, Blood Urea Nitrogen 13, Creatinine 0.4L, Estimat Glomerular Filtration Rate , Glucose Level 116H, Calcium Level 8.2L, Pro-B-Type Natriuretic Peptide 2953H Current Medications Medications (Trade) Dose Ordered Sig/Gary Route PRN Reason Start Time Stop Time Status Last Admin Dose Admin Acetaminophen (Tylenol) 650 mg Q4H PRN ORAL FEVER 09/21/16 15:30 10/21/16 15:29 Albuterol/ Ipratropium (DuoNeb 0.5-3(2.5)mg/3ml) 3 ml Q4H PRN HHN Shortness of Breath 09/21/16 15:30 09/26/16 15:29 Cefepime HCl/ Dextrose (Maxipime/D5W 100ml) 100 ml @ 100 mls/hr Q24H IV 12/30/16 01:00 09/27/16 00:59 09/23/16 01:10 Dextrose (Dextrose 50%) STAT PRN IV Hypoglycemia 09/21/16 15:30 10/21/16 15:29 Heparin Sodium (Porcine) (Heparin 5000 units/ml) 5,000 units EVERY 12 HOURS SUBQ 09/21/16 21:00 10/21/16 20:59 09/23/16 08:06 Lorazepam (Ativan 2mg/ml 1ml) 2 mg Q2H PRN IV For Anxiety 09/21/16 15:30 09/28/16 15:29 Metoprolol Tartrate (Lopressor) 5 mg Q1H PRN IVP HR>120 09/21/16 15:00 10/21/16 14:59 09/22/16 05:41 Metoprolol Tartrate (Lopressor) 50 mg BID ORAL 09/22/16 18:00 10/22/16 17:59 09/23/16 08:05 Morphine Sulfate (Morphine Sulfate) 4 mg Q4H PRN IVP Severe Pain (Pain Scale 7-10) 09/21/16 15:30 09/28/16 15:29 Ondansetron HCl (Zofran) 4 mg Q6H PRN IVP Nausea & Vomiting 09/21/16 15:15 10/21/16 15:14 Polyethylene Glycol (Miralax) 17 gm DAILYPRN PRN ORAL Constipation 09/21/16 15:30 10/21/16 15:29 Potassium Chloride (K-Dur) 20 meq DAILY ORAL 09/23/16 09:00 10/23/16 08:59 09/23/16 08:04 Sodium Chloride 1,000 ml @ 50 mls/hr Q20H IV 09/21/16 15:45 10/21/16 15:44 09/23/16 07:58 LEONORA XIAO Sep 23, 2016 12:26
--- NOTE | 2016-09-23 13:52 | Internal Med Progress Note ---
Subjective Date of Service: Sep 23, 2016 Physician Name Rodrigo Milner Attending Physician Timo Watkins MD Current Medications Medications (Trade) Dose Ordered Sig/Gary Route PRN Reason Start Time Stop Time Status Last Admin Dose Admin Acetaminophen (Tylenol) 650 mg Q4H PRN ORAL FEVER 09/21/16 15:30 10/21/16 15:29 Albuterol/ Ipratropium (DuoNeb 0.5-3(2.5)mg/3ml) 3 ml Q4H PRN HHN Shortness of Breath 09/21/16 15:30 09/26/16 15:29 Cefepime HCl/ Dextrose (Maxipime/D5W 100ml) 100 ml @ 100 mls/hr Q24H IV 09/22/16 01:00 09/27/16 00:59 09/23/16 01:10 Dextrose (Dextrose 50%) STAT PRN IV Hypoglycemia 09/21/16 15:30 10/21/16 15:29 Heparin Sodium (Porcine) (Heparin 5000 units/ml) 5,000 units EVERY 12 HOURS SUBQ 09/21/16 21:00 10/21/16 20:59 09/23/16 08:06 Lorazepam (Ativan 2mg/ml 1ml) 2 mg Q2H PRN IV For Anxiety 09/21/16 15:30 09/28/16 15:29 Metoprolol Tartrate (Lopressor) 5 mg Q1H PRN IVP HR>120 09/21/16 15:00 10/21/16 14:59 09/22/16 05:41 Metoprolol Tartrate (Lopressor) 50 mg BID ORAL 09/22/16 18:00 10/22/16 17:59 09/23/16 08:05 Morphine Sulfate (Morphine Sulfate) 4 mg Q4H PRN IVP Severe Pain (Pain Scale 7-10) 09/21/16 15:30 09/28/16 15:29 Ondansetron HCl (Zofran) 4 mg Q6H PRN IVP Nausea & Vomiting 09/21/16 15:15 10/21/16 15:14 Polyethylene Glycol (Miralax) 17 gm DAILYPRN PRN ORAL Constipation 09/21/16 15:30 10/21/16 15:29 Potassium Chloride (K-Dur) 20 meq DAILY ORAL 09/23/16 09:00 10/23/16 08:59 09/23/16 08:04 Sodium Chloride 1,000 ml @ 50 mls/hr Q20H IV 09/21/16 15:45 10/21/16 15:44 09/23/16 07:58 Allergies: Coded Allergies: No Known Allergies (Unverified , 09/20/16) ROS Limited/Unobtainable: No Constitutional: Reports: no symptoms HEENT: Reports: no symptoms Cardiovascular: Reports: no symptoms Respiratory: Reports: no symptoms Gastrointestinal/Abdominal: Reports: no symptoms Genitourinary: Reports: no symptoms Neurologic/Psychiatric: Reports: no symptoms Subjective Cover for Int Med-Dr Watkins. Still confused. Objective Last Vital Signs Date Time Temp Pulse Resp B/P Pulse Ox O2 Delivery O2 Flow Rate FiO2 09/23/16 11:13 96.3 83 18 160/95 95 Nasal Cannula 2.0 09/23/16 08:09 28 Laboratory Tests Test 09/23/16 05:50 White Blood Count 6.2 K/UL (4.8-10.8) Red Blood Count 4.51 M/UL (4.20-5.40) Hemoglobin 14.1 G/DL (12.0-16.0) Hematocrit 42.9 % (37.0-47.0) Mean Corpuscular Volume 95 FL (80-99) Mean Corpuscular Hemoglobin 31.4 PG (27.0-31.0) H Mean Corpuscular Hemoglobin Concent 33.0 G/DL (32.0-36.0) Red Cell Distribution Width 12.9 % (11.6-14.8) Platelet Count 181 K/UL (150-450) Mean Platelet Volume 7.4 FL (6.5-10.1) Neutrophils (%) (Auto) 73.0 % (45.0-75.0) Lymphocytes (%) (Auto) 10.7 % (20.0-45.0) L Monocytes (%) (Auto) 7.8 % (1.0-10.0) Eosinophils (%) (Auto) 7.2 % (0.0-3.0) H Basophils (%) (Auto) 1.3 % (0.0-2.0) Prothrombin Time 12.3 SEC (9.30-11.50) H Prothromb Time International Ratio 1.2 (0.9-1.1) H Sodium Level 137 mEQ/L (135-145) Potassium Level 3.8 mEQ/L (3.4-4.9) Chloride Level 99 mEQ/L (98-107) Carbon Dioxide Level 20 mEQ/L (20-30) Anion Gap 18 (5-15) H Blood Urea Nitrogen 13 mg/dL (7-23) Creatinine 0.4 mg/dL (0.5-0.9) L Estimat Glomerular Filtration Rate mL/min (>60) Glucose Level 116 mg/dL (74-106) H Calcium Level 8.2 mg/dL (8.6-10.2) L Pro-B-Type Natriuretic Peptide 2953 pg/mL (0-450) H Microbiology Date/Time Source Procedure Growth Status 09/20/16 21:10 Blood Blood Culture - Preliminary NO GROWTH AFTER 48 HOURS Resulted 09/20/16 20:50 Blood Blood Culture - Preliminary NO GROWTH AFTER 48 HOURS Resulted 09/20/16 21:18 Nasal Nares MRSA Culture - Final Staphylococcus Aureus - Mrsa Complete 09/20/16 21:15 Urine,Clean Catch Urine Culture - Preliminary Klebsiella Pneumoniae Resulted 09/20/16 21:18 Rectum VRE Culture - Final NO VANCOMYCIN RESISTANT ENTEROCOCCUS ... Complete Intake and Output 09/22/16 09/23/16 19:00 07:00 Intake Total 1012.5 ml 546 ml Output Total 250 ml 450 ml Balance 762.5 ml 96 ml IV Total 1012.5 ml 546 ml Output Urine Total 250 ml 450 ml # Bowel Movements 2 1 Objective General Appearance: WD/WN, no apparent distress, alert EENT: PERRL/EOMI, normal ENT inspection Neck: non-tender, normal alignment, supple, normal inspection Cardiovascular: normal peripheral pulses, normal rate, no gallop/murmur, no JVD , irregularly irregular Respiratory/Chest: chest wall non-tender, lungs clear, normal breath sounds, no respiratory distress, no accessory muscle use Abdomen: normal bowel sounds, non tender, soft, no organomegaly, no mass Extremities: normal range of motion 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 (2) UTI (urinary tract infection) Assessment & Plan: kKebsiella pneumoniae.. Await sensitivities. Cont vanco and cefepime for now per ID (3) Sepsis (4) HTN (hypertension) Assessment & Plan: Cont metoprolol (5) CHF (congestive heart failure) Assessment & Plan: See cardiology note. Await echocardiogram (6) Alzheimer's dementia (7) Hypokalemia Assessment & Plan: Replace potassium IV (8) Dysphagia (9) Atrial fibrillation Assessment & Plan: See cardiology note. (10) Hypothyroidism (11) Depression (12) Klebsiella pneumoniae Assessment & Plan: See UTI above. (13) Leukocytosis Assessment & Plan: Resolving. Status: progressing RODRIGO MILNER Sep 23, 2016 13:52
--- NOTE | 2016-09-23 14:21 | Cardiac Electrophysiology PN ---
Assessment/Plan Assessment/Plan 1. Atrial fibrillation with rapid ventricular response.Better with Metoprolol 50 bid. Not a candidate for Xarelto for severe MR. Hold full anticoagulation for AMS and age almost 89 with fall risk. 2. Hypertension.On Metoprolol 50 bid. 3. 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 Sepsis, On Cefepime per Dr. Candelario. 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 No chest pain or SOB on mechanical soft diet.No significant arrhythmia on tele. Objective Last 24 Hour Vital Signs Date Time Temp Pulse Resp B/P Pulse Ox O2 Delivery O2 Flow Rate FiO2 09/23/16 11:13 96.3 83 18 160/95 95 Nasal Cannula 2.0 09/23/16 08:09 Nasal Cannula 2.0 28 09/23/16 08:09 99 Nasal Cannula 2.0 28 09/23/16 08:08 87 16 Nasal Cannula 2.0 28 09/23/16 08:05 83 130/94 09/23/16 08:03 96.1 87 18 146/91 99 Nasal Cannula 2.0 09/23/16 08:00 84 09/23/16 04:10 18 96 Nasal Cannula 2.0 09/23/16 04:05 97.6 88 17 146/92 94 Room Air 09/23/16 04:00 89 09/23/16 00:10 97.2 85 19 145/94 96 Room Air 09/23/16 00:00 90 09/22/16 20:04 98.2 83 13 130/94 94 Room Air 09/22/16 20:00 80 09/22/16 19:30 98 16 Room Air 21 09/22/16 19:30 Room Air 21 09/22/16 19:30 94 Room Air 21 09/22/16 18:46 111 149/88 09/22/16 16:00 111 09/22/16 16:00 97.5 63 15 149/88 96 Room Air Intake and Output 09/22/16 09/23/16 19:00 07:00 Intake Total 1012.5 ml 546 ml Output Total 250 ml 450 ml Balance 762.5 ml 96 ml IV Total 1012.5 ml 546 ml Output Urine Total 250 ml 450 ml # Bowel Movements 2 1 Laboratory Tests Test 09/23/16 05:50 White Blood Count 6.2 K/UL (4.8-10.8) Red Blood Count 4.51 M/UL (4.20-5.40) Hemoglobin 14.1 G/DL (12.0-16.0) Hematocrit 42.9 % (37.0-47.0) Mean Corpuscular Volume 95 FL (80-99) Mean Corpuscular Hemoglobin 31.4 PG (27.0-31.0) H Mean Corpuscular Hemoglobin Concent 33.0 G/DL (32.0-36.0) Red Cell Distribution Width 12.9 % (11.6-14.8) Platelet Count 181 K/UL (150-450) Mean Platelet Volume 7.4 FL (6.5-10.1) Neutrophils (%) (Auto) 73.0 % (45.0-75.0) Lymphocytes (%) (Auto) 10.7 % (20.0-45.0) L Monocytes (%) (Auto) 7.8 % (1.0-10.0) Eosinophils (%) (Auto) 7.2 % (0.0-3.0) H Basophils (%) (Auto) 1.3 % (0.0-2.0) Prothrombin Time 12.3 SEC (9.30-11.50) H Prothromb Time International Ratio 1.2 (0.9-1.1) H Sodium Level 137 mEQ/L (135-145) Potassium Level 3.8 mEQ/L (3.4-4.9) Chloride Level 99 mEQ/L (98-107) Carbon Dioxide Level 20 mEQ/L (20-30) Anion Gap 18 (5-15) H Blood Urea Nitrogen 13 mg/dL (7-23) Creatinine 0.4 mg/dL (0.5-0.9) L Estimat Glomerular Filtration Rate mL/min (>60) Glucose Level 116 mg/dL (74-106) H Calcium Level 8.2 mg/dL (8.6-10.2) L Pro-B-Type Natriuretic Peptide 2953 pg/mL (0-450) H Microbiology Date/Time Source Procedure Growth Status 09/20/16 21:10 Blood Blood Culture - Preliminary NO GROWTH AFTER 48 HOURS Resulted 09/20/16 20:50 Blood Blood Culture - Preliminary NO GROWTH AFTER 48 HOURS Resulted 09/20/16 21:18 Nasal Nares MRSA Culture - Final Staphylococcus Aureus - Mrsa Complete 09/20/16 21:15 Urine,Clean Catch Urine Culture - Preliminary Klebsiella Pneumoniae Resulted 09/20/16 21:18 Rectum VRE Culture - Final NO VANCOMYCIN RESISTANT ENTEROCOCCUS ... Complete Objective HEAD AND NECK: Showed no JVD. LUNGS: Clear. CARDIOVASCULAR: Tachycardic Irregular S1 and S2 with no gallop or murmur. ABDOMEN: Soft and nontender. EXTREMITIES: No pitting edema. KAISER RODRIGUEZ Sep 23, 2016 14:21
[2016-09-23] MEDS ORDERED: D5 1/2NS 1000ml IV ONE (15:20)
[2016-09-23] MEDS ORDERED: 1/2 NS 1000ml IV ONE ×2 (15:20→16:30)
[2016-09-23 16:00] VITALS: BP 153/99
[2016-09-23] MEDS ORDERED: NS 275ml ONE (16:30)
[2016-09-23] MEDS ORDERED: Tubing IV Secondary IV ONE ×2 (16:30→18:18)
[2016-09-23 20:00] VITALS: BP 150/80
[2016-09-24 00:23] VITALS: BP 147/95
[2016-09-24 04:09] VITALS: BP 145/86
[2016-09-24 07:07] LABS: BASOPHILS % (AUTO) 4.3 % (0.0-2.0); EOSINOPHILS % (AUTO) 12.3 % (0.0-3.0); LYMPHOCYTES % (AUTO) 13.2 % (20.0-45.0); MEAN CORPUSCULAR HEMOGLOBIN 31.2 PG (27.0-31.0); MEAN CORPUSCULAR HGB CONC 33.2 G/DL (32.0-36.0); MEAN CORPUSCULAR VOLUME 94 FL (80-99); MEAN PLATELET VOLUME 6.5 FL (6.5-10.1); MONOCYTES % (AUTO) 7.2 % (1.0-10.0); NEUTROPHILS % (AUTO) 63.1 % (45.0-75.0); PLATELET COUNT 174 K/UL (150-450); RED BLOOD COUNT 4.52 M/UL (4.20-5.40); RED CELL DISTRIBUTION WIDTH 13.2 % (11.6-14.8); WHITE BLOOD COUNT 4.8 K/UL (4.8-10.8)
[2016-09-24 07:09] LABS: ALANINE AMINOTRANSFERASE 15 U/L (3-33); ALBUMIN/GLOBULIN RATIO 0.8 (1.0-2.7); ANION GAP 15 (5-15); ASPARTATE AMINO TRANSFERASE 22 U/L (5-40); CALCIUM 8.2 mg/dL (8.6-10.2); CARBON DIOXIDE 23 mEQ/L (20-30); CHLORIDE 101 mEQ/L (98-107); CREATININE 0.4 mg/dL (0.5-0.9); HEMOLYSIS 6; MAGNESIUM 1.7 mg/dL (1.7-2.5); PHOSPHORUS 2.4 mg/dL (2.5-4.8); POTASSIUM 3.3 mEQ/L (3.4-4.9); SODIUM 139 mEQ/L (135-145); TOTAL PROTEIN 5.1 g/dL (6.6-8.7)
--- NOTE | 2016-09-24 07:33 | Infectious Diseases Prog Note ---
Assessment/Plan Assessment/Plan A: The patient is an 89-year-old, K.pneumoniae UTI - sensi pending Sepsis SP ALOC improving leukocytosis SP Fever SP no evidence of Pna Cxray : NAPD AFib with rapid ventricular response History of AFib Hypothyroidism Dementia. Osteoarthritis Anxiety Dysphagia Failure to thrive NKDA Full Code PLAN: cont cefepime d# 4 / 5 pending C&S ( 09/22 SP IV Vanco d# 2 ) Monitor blood culture. Monitor urine culture. Monitor CBC Monitor BNP Subjective Allergies: Coded Allergies: No Known Allergies (Unverified , 09/20/16) Subjective fevers resolved. comfortable Objective Vital Signs Last 24 Hour Vital Signs Date Time Temp Pulse Resp B/P Pulse Ox O2 Delivery O2 Flow Rate FiO2 09/24/16 04:09 98.6 88 17 145/86 99 Nasal Cannula 2.0 09/24/16 04:00 81 09/24/16 00:23 98.8 88 18 147/95 97 Room Air 09/24/16 00:00 74 09/23/16 20:00 96.7 90 20 150/80 96 Nasal Cannula 2.0 09/23/16 20:00 77 09/23/16 18:53 85 18 Nasal Cannula 2.0 28 09/23/16 18:53 Nasal Cannula 2.0 28 09/23/16 18:53 98 Nasal Cannula 2.0 28 09/23/16 17:58 95 152/83 09/23/16 16:00 83 09/23/16 16:00 96.5 81 20 153/99 99 Nasal Cannula 2.0 09/23/16 12:00 74 09/23/16 11:13 96.3 83 18 160/95 95 Nasal Cannula 2.0 09/23/16 08:09 Nasal Cannula 2.0 28 09/23/16 08:09 99 Nasal Cannula 2.0 28 09/23/16 08:08 87 16 Nasal Cannula 2.0 28 09/23/16 08:05 83 130/94 09/23/16 08:03 96.1 87 18 146/91 99 Nasal Cannula 2.0 09/23/16 08:00 84 Height (Feet): 5 Height (Inches): 8.00 Weight (Pounds): 138 General Appearance: no acute distress Respiratory/Chest: no respiratory distress Cardiovascular: normal rate, regular rhythm Abdomen: normal bowel sounds, soft, non tender, non distended Laboratory Tests Test 09/24/16 05:45 White Blood Count 4.8 K/UL (4.8-10.8) Red Blood Count 4.52 M/UL (4.20-5.40) Hemoglobin 14.1 G/DL (12.0-16.0) Hematocrit 42.5 % (37.0-47.0) Mean Corpuscular Volume 94 FL (80-99) Mean Corpuscular Hemoglobin 31.2 PG (27.0-31.0) H Mean Corpuscular Hemoglobin Concent 33.2 G/DL (32.0-36.0) Red Cell Distribution Width 13.2 % (11.6-14.8) Platelet Count 174 K/UL (150-450) Mean Platelet Volume 6.5 FL (6.5-10.1) Neutrophils (%) (Auto) 63.1 % (45.0-75.0) Lymphocytes (%) (Auto) 13.2 % (20.0-45.0) L Monocytes (%) (Auto) 7.2 % (1.0-10.0) Eosinophils (%) (Auto) 12.3 % (0.0-3.0) H Basophils (%) (Auto) 4.3 % (0.0-2.0) H Sodium Level 139 mEQ/L (135-145) Potassium Level 3.3 mEQ/L (3.4-4.9) L Chloride Level 101 mEQ/L (98-107) Carbon Dioxide Level 23 mEQ/L (20-30) Anion Gap 15 (5-15) Blood Urea Nitrogen 10 mg/dL (7-23) Creatinine 0.4 mg/dL (0.5-0.9) L Estimat Glomerular Filtration Rate mL/min (>60) Glucose Level 98 mg/dL (74-106) Calcium Level 8.2 mg/dL (8.6-10.2) L Phosphorus Level 2.4 mg/dL (2.5-4.8) L Magnesium Level 1.7 mg/dL (1.7-2.5) Total Bilirubin 0.6 mg/dL (0.0-1.2) Aspartate Amino Transf (AST/SGOT) 22 U/L (5-40) Alanine Aminotransferase (ALT/SGPT) 15 U/L (3-33) Alkaline Phosphatase 59 U/L (35-104) Total Protein 5.1 g/dL (6.6-8.7) L Albumin 2.3 g/dL (3.5-5.2) L Globulin 2.8 g/dL Albumin/Globulin Ratio 0.8 (1.0-2.7) L Current Medications Medications (Trade) Dose Ordered Sig/Gary Route PRN Reason Start Time Stop Time Status Last Admin Dose Admin Acetaminophen (Tylenol) 650 mg Q4H PRN ORAL FEVER 09/21/16 15:30 10/21/16 15:29 Albuterol/ Ipratropium (DuoNeb 0.5-3(2.5)mg/3ml) 3 ml Q4H PRN HHN Shortness of Breath 09/21/16 15:30 09/26/16 15:29 Cefepime HCl/ Dextrose (Maxipime/D5W 100ml) 100 ml @ 100 mls/hr Q24H IV 09/22/16 01:00 09/27/16 00:59 09/24/16 00:51 Dextrose (Dextrose 50%) STAT PRN IV Hypoglycemia 09/21/16 15:30 10/21/16 15:29 Heparin Sodium (Porcine) (Heparin 5000 units/ml) 5,000 units EVERY 12 HOURS SUBQ 09/21/16 21:00 10/21/16 20:59 09/23/16 20:16 Lorazepam (Ativan 2mg/ml 1ml) 2 mg Q2H PRN IV For Anxiety 09/21/16 15:30 09/28/16 15:29 Metoprolol Tartrate (Lopressor) 5 mg Q1H PRN IVP HR>120 09/21/16 15:00 10/21/16 14:59 09/22/16 05:41 Metoprolol Tartrate (Lopressor) 50 mg BID ORAL 09/22/16 18:00 10/22/16 17:59 09/23/16 17:58 Morphine Sulfate (Morphine Sulfate) 4 mg Q4H PRN IVP Severe Pain (Pain Scale 7-10) 09/21/16 15:30 09/28/16 15:29 Ondansetron HCl (Zofran) 4 mg Q6H PRN IVP Nausea & Vomiting 09/21/16 15:15 10/21/16 15:14 Polyethylene Glycol (Miralax) 17 gm DAILYPRN PRN ORAL Constipation 09/21/16 15:30 10/21/16 15:29 Potassium Chloride (K-Dur) 20 meq DAILY ORAL 09/23/16 09:00 10/23/16 08:59 09/23/16 08:04 Sodium Chloride 1,000 ml @ 50 mls/hr Q20H IV 09/21/16 15:45 10/21/16 15:44 09/24/16 04:10 ОЛЕГ HEREDIA Sep 24, 2016 07:33
[2016-09-24 07:54] VITALS: BP 155/88
[2016-09-24] MEDS: Metoprolol 50mg tab ORAL SCH ×2 (09:01→17:49)
[2016-09-24] MEDS: Heparin 5000 units/ml inj SUBQ SCH ×2 (09:02→21:49)
[2016-09-24] MEDS ORDERED: KCl 10% 20 mEq/15ml liquid ORAL SCH (09:30)
[2016-09-24 11:39] VITALS: BP 148/92
--- NOTE | 2016-09-24 14:52 | Internal Med Progress Note ---
Subjective Date of Service: Sep 24, 2016 Physician Name Rodrigo Milner Attending Physician Timo Watkins MD Current Medications Medications (Trade) Dose Ordered Sig/Gary Route PRN Reason Start Time Stop Time Status Last Admin Dose Admin Acetaminophen (Tylenol) 650 mg Q4H PRN ORAL FEVER 09/21/16 15:30 10/21/16 15:29 Albuterol/ Ipratropium (DuoNeb 0.5-3(2.5)mg/3ml) 3 ml Q4H PRN HHN Shortness of Breath 09/21/16 15:30 09/26/16 15:29 Cefepime HCl/ Dextrose (Maxipime/D5W 100ml) 100 ml @ 100 mls/hr Q24H IV 09/22/16 01:00 09/27/16 00:59 09/24/16 00:51 Dextrose (Dextrose 50%) STAT PRN IV Hypoglycemia 09/21/16 15:30 10/21/16 15:29 Heparin Sodium (Porcine) (Heparin 5000 units/ml) 5,000 units EVERY 12 HOURS SUBQ 09/21/16 21:00 10/21/16 20:59 09/24/16 09:02 Lorazepam (Ativan 2mg/ml 1ml) 2 mg Q2H PRN IV For Anxiety 09/21/16 15:30 09/28/16 15:29 Metoprolol Tartrate (Lopressor) 5 mg Q1H PRN IVP HR>120 09/21/16 15:00 10/21/16 14:59 09/22/16 05:41 Metoprolol Tartrate (Lopressor) 50 mg BID ORAL 09/22/16 18:00 10/22/16 17:59 09/24/16 09:01 Morphine Sulfate (Morphine Sulfate) 4 mg Q4H PRN IVP Severe Pain (Pain Scale 7-10) 09/21/16 15:30 09/28/16 15:29 Ondansetron HCl (Zofran) 4 mg Q6H PRN IVP Nausea & Vomiting 09/21/16 15:15 10/21/16 15:14 Polyethylene Glycol (Miralax) 17 gm DAILYPRN PRN ORAL Constipation 09/21/16 15:30 10/21/16 15:29 Potassium Chloride (KCl 10% 20 mEq oral solution) 20 meq DAILY ORAL 09/24/16 09:30 10/24/16 09:29 09/24/16 09:32 Sodium Chloride 1,000 ml @ 50 mls/hr Q20H IV 09/21/16 15:45 10/21/16 15:44 09/24/16 04:10 Allergies: Coded Allergies: No Known Allergies (Unverified , 09/20/16) ROS Limited/Unobtainable: Yes Subjective Cover for Int Med-Dr Watkins. Still confused. Objective Last Vital Signs Date Time Temp Pulse Resp B/P Pulse Ox O2 Delivery O2 Flow Rate FiO2 09/24/16 12:00 70 09/24/16 11:39 96.6 18 148/92 95 Nasal Cannula 2.0 09/24/16 07:51 28 Laboratory Tests Test 09/24/16 05:45 White Blood Count 4.8 K/UL (4.8-10.8) Red Blood Count 4.52 M/UL (4.20-5.40) Hemoglobin 14.1 G/DL (12.0-16.0) Hematocrit 42.5 % (37.0-47.0) Mean Corpuscular Volume 94 FL (80-99) Mean Corpuscular Hemoglobin 31.2 PG (27.0-31.0) H Mean Corpuscular Hemoglobin Concent 33.2 G/DL (32.0-36.0) Red Cell Distribution Width 13.2 % (11.6-14.8) Platelet Count 174 K/UL (150-450) Mean Platelet Volume 6.5 FL (6.5-10.1) Neutrophils (%) (Auto) 63.1 % (45.0-75.0) Lymphocytes (%) (Auto) 13.2 % (20.0-45.0) L Monocytes (%) (Auto) 7.2 % (1.0-10.0) Eosinophils (%) (Auto) 12.3 % (0.0-3.0) H Basophils (%) (Auto) 4.3 % (0.0-2.0) H Sodium Level 139 mEQ/L (135-145) Potassium Level 3.3 mEQ/L (3.4-4.9) L Chloride Level 101 mEQ/L (98-107) Carbon Dioxide Level 23 mEQ/L (20-30) Anion Gap 15 (5-15) Blood Urea Nitrogen 10 mg/dL (7-23) Creatinine 0.4 mg/dL (0.5-0.9) L Estimat Glomerular Filtration Rate mL/min (>60) Glucose Level 98 mg/dL (74-106) Calcium Level 8.2 mg/dL (8.6-10.2) L Phosphorus Level 2.4 mg/dL (2.5-4.8) L Magnesium Level 1.7 mg/dL (1.7-2.5) Total Bilirubin 0.6 mg/dL (0.0-1.2) Aspartate Amino Transf (AST/SGOT) 22 U/L (5-40) Alanine Aminotransferase (ALT/SGPT) 15 U/L (3-33) Alkaline Phosphatase 59 U/L (35-104) Total Protein 5.1 g/dL (6.6-8.7) L Albumin 2.3 g/dL (3.5-5.2) L Globulin 2.8 g/dL Albumin/Globulin Ratio 0.8 (1.0-2.7) L Intake and Output 09/23/16 09/24/16 19:00 07:00 Intake Total 597.5 ml 650 ml Output Total 100 ml 700 ml Balance 497.5 ml -50 ml IV Total 597.5 ml 650 ml Output Urine Total 100 ml 700 ml # Bowel Movements 1 1 Objective General Appearance: WD/WN, no apparent distress, alert EENT: PERRL/EOMI, normal ENT inspection Neck: non-tender, normal alignment, supple, normal inspection Cardiovascular: normal peripheral pulses, normal rate, no gallop/murmur, no JVD , irregularly irregular Respiratory/Chest: chest wall non-tender, lungs clear, normal breath sounds, no respiratory distress, no accessory muscle use Abdomen: normal bowel sounds, non tender, soft, no organomegaly, no mass Extremities: normal range of motion Neurologic: mutual funds agent II-XII grossly normal Skin: normal pigmentation, warm/dry Assessment/Plan Problem List: (1) Altered mental status Assessment & Plan: Still confused. (2) UTI (urinary tract infection) Assessment & Plan: kKebsiella pneumoniae. Cont cefepime for per ID (3) Sepsis (4) HTN (hypertension) Assessment & Plan: Cont metoprolol (5) CHF (congestive heart failure) Assessment & Plan: See cardiology note. Await echocardiogram (6) Alzheimer's dementia (7) Hypokalemia Assessment & Plan: Replace potassium PO (8) Dysphagia (9) Atrial fibrillation Assessment & Plan: See cardiology note. (10) Hypothyroidism (11) Depression (12) Klebsiella pneumoniae Assessment & Plan: See UTI above. (13) Leukocytosis Assessment & Plan: Resolving. (14) Aortic stenosis, severe Assessment & Plan: See cardiology note. Status: not improved RODRIGO MILNER Sep 24, 2016 14:52
[2016-09-24 16:00] VITALS: BP 168/104
[2016-09-24] MEDS: KCl 10% 20 mEq/15ml liquid ORAL SCH (17:50)
[2016-09-24 20:00] VITALS: BP 164/83
[2016-09-25] VITALS (7 sets, daily range): BP systolic 135–174; BP diastolic 77–98
--- NOTE | 2016-09-25 08:28 | Infectious Diseases Prog Note ---
Assessment/Plan Assessment/Plan A: The patient is an 89-year-old, K.pneumoniae UTI C.difficile diarrhea Sepsis SP ALOC improving leukocytosis SP Fever SP no evidence of Pna Cxray : NAPD AFib with rapid ventricular response History of AFib Hypothyroidism Dementia. Osteoarthritis Anxiety Dysphagia Failure to thrive NKDA Full Code PLAN: DC cefepime d# 5 / 5, start flagyl d# 1 / 10 ( 09/22 SP IV Vanco d# 2 ) Monitor blood culture. Monitor urine culture. Monitor CBC Monitor BNP Subjective Allergies: Coded Allergies: No Known Allergies (Unverified , 09/20/16) Subjective fevers resolved. developed diarrhea - C.diff+ Objective Vital Signs Last 24 Hour Vital Signs Date Time Temp Pulse Resp B/P Pulse Ox O2 Delivery O2 Flow Rate FiO2 09/25/16 04:06 98.5 86 19 159/80 99 Nasal Cannula 2.0 09/25/16 04:00 98 09/25/16 00:25 90 159/83 09/25/16 00:00 98.3 88 18 174/87 98 Nasal Cannula 2.0 09/24/16 23:55 84 09/24/16 20:00 96.3 82 20 164/83 98 Nasal Cannula 2.0 09/24/16 19:35 87 09/24/16 19:26 Nasal Cannula 2.0 28 09/24/16 19:26 97 Nasal Cannula 2.0 28 09/24/16 19:24 80 18 Nasal Cannula 2.0 28 09/24/16 17:49 85 168/104 09/24/16 16:00 97.2 85 22 168/104 99 Nasal Cannula 2.0 09/24/16 16:00 85 09/24/16 12:00 70 09/24/16 11:39 96.6 71 18 148/92 95 Nasal Cannula 2.0 09/24/16 09:01 82 155/88 Height (Feet): 5 Height (Inches): 8.00 Weight (Pounds): 138 General Appearance: no acute distress Respiratory/Chest: no respiratory distress Cardiovascular: normal rate, regular rhythm Abdomen: normal bowel sounds, soft, non tender, non distended Microbiology Date/Time Source Procedure Growth Status 09/24/16 05:30 Stool Clostridium difficile Toxin Assay - Final Complete Current Medications Medications (Trade) Dose Ordered Sig/Gary Route PRN Reason Start Time Stop Time Status Last Admin Dose Admin Acetaminophen (Tylenol) 650 mg Q4H PRN ORAL FEVER 09/21/16 15:30 10/21/16 15:29 Albuterol/ Ipratropium (DuoNeb 0.5-3(2.5)mg/3ml) 3 ml Q4H PRN HHN Shortness of Breath 09/21/16 15:30 09/26/16 15:29 Cefepime HCl/ Dextrose (Maxipime/D5W 100ml) 100 ml @ 100 mls/hr Q24H IV 09/22/16 01:00 09/27/16 00:59 09/25/16 00:49 Dextrose (Dextrose 50%) STAT PRN IV Hypoglycemia 09/21/16 15:30 10/21/16 15:29 Heparin Sodium (Porcine) (Heparin 5000 units/ml) 5,000 units EVERY 12 HOURS SUBQ 09/21/16 21:00 10/21/16 20:59 09/24/16 21:49 Lorazepam (Ativan 2mg/ml 1ml) 2 mg Q2H PRN IV For Anxiety 09/21/16 15:30 09/28/16 15:29 Metoprolol Tartrate (Lopressor) 5 mg Q1H PRN IVP HR>120 09/21/16 15:00 10/21/16 14:59 09/22/16 05:41 Metoprolol Tartrate (Lopressor) 50 mg BID ORAL 09/22/16 18:00 10/22/16 17:59 09/24/16 17:49 Morphine Sulfate (Morphine Sulfate) 4 mg Q4H PRN IVP Severe Pain (Pain Scale 7-10) 09/21/16 15:30 09/28/16 15:29 Ondansetron HCl (Zofran) 4 mg Q6H PRN IVP Nausea & Vomiting 09/21/16 15:15 10/21/16 15:14 Polyethylene Glycol (Miralax) 17 gm DAILYPRN PRN ORAL Constipation 09/21/16 15:30 10/21/16 15:29 Potassium Chloride (KCl 10% 20 mEq oral solution) 20 meq BID ORAL 09/24/16 18:00 10/24/16 17:59 09/24/16 17:50 Sodium Chloride 1,000 ml @ 50 mls/hr Q20H IV 09/21/16 15:45 10/21/16 15:44 09/25/16 00:49 ОЛЕГ HEREDIA Sep 25, 2016 08:28
[2016-09-25] MEDS: KCl 10% 20 mEq/15ml liquid ORAL SCH ×3 (08:55→17:37)
[2016-09-25] MEDS: Metoprolol 50mg tab ORAL SCH ×3 (08:56→17:37)
[2016-09-25] MEDS: Heparin 5000 units/ml inj SUBQ SCH ×2 (08:57→21:31)
[2016-09-25] MEDS: metroNIDAZOLE 500mg tab ORAL SCH ×3 (09:59→21:30)
--- NOTE | 2016-09-25 12:53 | Internal Med Progress Note ---
Subjective Date of Service: Sep 25, 2016 Physician Name Rodrigo Mliner Attending Physician Timo Watkins MD Current Medications Medications (Trade) Dose Ordered Sig/Gary Route PRN Reason Start Time Stop Time Status Last Admin Dose Admin Acetaminophen (Tylenol) 650 mg Q4H PRN ORAL FEVER 09/21/16 15:30 10/21/16 15:29 Albuterol/ Ipratropium (DuoNeb 0.5-3(2.5)mg/3ml) 3 ml Q4H PRN HHN Shortness of Breath 09/21/16 15:30 09/26/16 15:29 Dextrose (Dextrose 50%) STAT PRN IV Hypoglycemia 09/21/16 15:30 10/21/16 15:29 Heparin Sodium (Porcine) (Heparin 5000 units/ml) 5,000 units EVERY 12 HOURS SUBQ 09/21/16 21:00 10/21/16 20:59 09/25/16 08:57 Lorazepam (Ativan 2mg/ml 1ml) 2 mg Q2H PRN IV For Anxiety 09/21/16 15:30 09/28/16 15:29 Metoprolol Tartrate (Lopressor) 5 mg Q1H PRN IVP HR>120 09/21/16 15:00 10/21/16 14:59 09/22/16 05:41 Metoprolol Tartrate (Lopressor) 50 mg BID ORAL 09/22/16 18:00 10/22/16 17:59 09/25/16 08:56 Metronidazole (Flagyl) 500 mg Q8HR ORAL 09/25/16 09:30 10/02/16 09:29 09/25/16 09:59 Morphine Sulfate (Morphine Sulfate) 4 mg Q4H PRN IVP Severe Pain (Pain Scale 7-10) 09/21/16 15:30 09/28/16 15:29 Ondansetron HCl (Zofran) 4 mg Q6H PRN IVP Nausea & Vomiting 09/21/16 15:15 10/21/16 15:14 Polyethylene Glycol (Miralax) 17 gm DAILYPRN PRN ORAL Constipation 09/21/16 15:30 10/21/16 15:29 Potassium Chloride (KCl 10% 20 mEq oral solution) 20 meq BID ORAL 09/24/16 18:00 10/24/16 17:59 09/25/16 08:55 Sodium Chloride (0.45% NS 1000ml) 1,000 ml @ 50 mls/hr Q20H IV 09/21/16 15:45 10/21/16 15:44 09/25/16 00:49 Allergies: Coded Allergies: No Known Allergies (Unverified , 09/20/16) ROS Limited/Unobtainable: Yes Subjective Cover for Int Med-Dr Watkins. Still confused. Objective Last Vital Signs Date Time Temp Pulse Resp B/P Pulse Ox O2 Delivery O2 Flow Rate FiO2 09/25/16 12:00 97.8 85 20 155/93 99 Nasal Cannula 2.0 09/25/16 08:32 28 Microbiology Date/Time Source Procedure Growth Status 09/24/16 05:30 Stool Clostridium difficile Toxin Assay - Final Complete Intake and Output 09/24/16 09/25/16 19:00 07:00 Intake Total 650 ml 50 ml Output Total 200 ml 600 ml Balance 450 ml -550 ml Intake Oral 100 ml IV Total 550 ml 50 ml Output Urine Total 200 ml 600 ml # Bowel Movements 5 1 Objective General Appearance: WD/WN, no apparent distress, alert EENT: PERRL/EOMI, normal ENT inspection Neck: non-tender, normal alignment, supple, normal inspection Cardiovascular: normal peripheral pulses, normal rate, no gallop/murmur, no JVD , irregularly irregular Respiratory/Chest: chest wall non-tender, lungs clear, normal breath sounds, no respiratory distress, no accessory muscle use Abdomen: normal bowel sounds, non tender, soft, no organomegaly, no mass Extremities: normal range of motion 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 (2) UTI (urinary tract infection) Assessment & Plan: kKebsiella pneumoniae. Cont cefepime for per ID (3) Sepsis (4) HTN (hypertension) Assessment & Plan: Cont metoprolol (5) CHF (congestive heart failure) Assessment & Plan: See cardiology note. Await echocardiogram (6) Alzheimer's dementia (7) Hypokalemia Assessment & Plan: Replace potassium PO (8) Dysphagia (9) Atrial fibrillation Assessment & Plan: See cardiology note. (10) Hypothyroidism (11) Depression (12) Klebsiella pneumoniae Assessment & Plan: See UTI above. (13) Leukocytosis Assessment & Plan: Resolving. (14) Aortic stenosis, severe Assessment & Plan: See cardiology note. (15) C. difficile diarrhea Assessment & Plan: Cont flagyl orally per ID Status: not improved RODRIGO MILNER Sep 25, 2016 12:53
[2016-09-25 14:01] LABS: BASOPHILS % (AUTO) 8.2 % (0.0-2.0); EOSINOPHILS % (AUTO) 6.5 % (0.0-3.0); LYMPHOCYTES % (AUTO) 9.9 % (20.0-45.0); MEAN CORPUSCULAR HGB CONC 30.7 G/DL (32.0-36.0); MEAN CORPUSCULAR VOLUME 98 FL (80-99); MONOCYTES % (AUTO) 12.3 % (1.0-10.0); NEUTROPHILS % (AUTO) 63.1 % (45.0-75.0); PLATELET COUNT 229 K/UL (150-450); RED BLOOD COUNT 5.16 M/UL (4.20-5.40); RED CELL DISTRIBUTION WIDTH 13.1 % (11.6-14.8); WHITE BLOOD COUNT 5.9 K/UL (4.8-10.8)
[2016-09-25 14:09] LABS: ANION GAP 19 (5-15); CALCIUM 8.4 mg/dL (8.6-10.2); CARBON DIOXIDE 22 mEQ/L (20-30); CHLORIDE 95 mEQ/L (98-107); CREATININE 0.4 mg/dL (0.5-0.9); HEMOLYSIS 1; POTASSIUM 3.7 mEQ/L (3.4-4.9); SODIUM 136 mEQ/L (135-145)
--- NOTE | 2016-09-25 14:32 | Pulmonology Progress Note ---
Assessment/Plan Problems: (1) Acute encephalopathy (2) Atrial fibrillation (3) Altered level of consciousness (4) Severe sepsis (5) Depression (6) Hypothyroidism (7) detention resident Assessment/Plan cdiff positive continue antibiotics heart rate controlled better Blood pressure better dc teli if ok with Dr. Caldera Subjective ROS Limited/Unobtainable: No Allergies: Coded Allergies: No Known Allergies (Unverified , 09/20/16) Objective Last 24 Hour Vital Signs Date Time Temp Pulse Resp B/P Pulse Ox O2 Delivery O2 Flow Rate FiO2 09/25/16 12:00 95 09/25/16 12:00 97.8 85 20 155/93 99 Nasal Cannula 2.0 09/25/16 08:56 103 136/77 09/25/16 08:32 99 Nasal Cannula 2.0 09/25/16 08:32 Nasal Cannula 2.0 09/25/16 08:32 91 18 Nasal Cannula 2.0 09/25/16 08:00 100 09/25/16 08:00 96.8 103 20 136/77 98 Nasal Cannula 2.0 09/25/16 04:06 98.5 86 19 159/80 99 Nasal Cannula 2.0 09/25/16 04:00 98 09/25/16 00:25 90 159/83 09/25/16 00:00 98.3 88 18 174/87 98 Nasal Cannula 2.0 09/24/16 23:55 84 09/24/16 20:00 96.3 82 20 164/83 98 Nasal Cannula 2.0 09/24/16 19:35 87 09/24/16 19:26 Nasal Cannula 2.0 28 09/24/16 19:26 97 Nasal Cannula 2.0 28 09/24/16 19:24 80 18 Nasal Cannula 2.0 28 09/24/16 17:49 85 168/104 09/24/16 16:00 97.2 85 22 168/104 99 Nasal Cannula 2.0 09/24/16 16:00 85 Intake and Output 09/24/16 09/25/16 19:00 07:00 Intake Total 650 ml 50 ml Output Total 200 ml 600 ml Balance 450 ml -550 ml Intake Oral 100 ml IV Total 550 ml 50 ml Output Urine Total 200 ml 600 ml # Bowel Movements 5 1 General Appearance: WD/WN HEENT: normocephalic Respiratory/Chest: chest wall non-tender, lungs clear Cardiovascular: normal peripheral pulses, normal rate Abdomen: normal bowel sounds, soft, non tender Genitourinary: normal external genitalia Skin: no rash 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 Lymphatic: no neck adenopathy Musculoskeletal: normal muscle bulk Microbiology Date/Time Source Procedure Growth Status 09/24/16 05:30 Stool Clostridium difficile Toxin Assay - Final Complete Laboratory Tests 09/25/16 13:20: White Blood Count 5.9, Red Blood Count 5.16, Hemoglobin 15.5, Hematocrit 50.4H, Mean Corpuscular Volume 98, Mean Corpuscular Hemoglobin 30.0, Mean Corpuscular Hemoglobin Concent 30.7L, Red Cell Distribution Width 13.1, Platelet Count 229, Mean Platelet Volume 7.0, Neutrophils (%) (Auto) 63.1, Lymphocytes (%) (Auto) 9.9L, Monocytes (%) (Auto) 12.3H, Eosinophils (%) (Auto) 6.5H, Basophils (%) ( Auto) 8.2H, Sodium Level 136, Potassium Level 3.7, Chloride Level 95L, Carbon Dioxide Level 22, Anion Gap 19H, Blood Urea Nitrogen 6L, Creatinine 0.4L, Estimat Glomerular Filtration Rate , Glucose Level 109H, Calcium Level 8.4L Current Medications Medications (Trade) Dose Ordered Sig/[place] Route PRN Reason Start Time Stop Time Status Last Admin Dose Admin Acetaminophen (Tylenol) 650 mg Q4H PRN ORAL FEVER 09/21/16 15:30 10/21/16 15:29 Albuterol/ Ipratropium (DuoNeb 0.5-3(2.5)mg/3ml) 3 ml Q4H PRN HHN Shortness of Breath 09/21/16 15:30 09/26/16 15:29 Dextrose (Dextrose 50%) STAT PRN IV Hypoglycemia 09/21/16 15:30 10/21/16 15:29 Heparin Sodium (Porcine) (Heparin 5000 units/ml) 5,000 units EVERY 12 HOURS SUBQ 09/21/16 21:00 10/21/16 20:59 09/25/16 08:57 Lorazepam (Ativan 2mg/ml 1ml) 2 mg Q2H PRN IV For Anxiety 09/21/16 15:30 09/28/16 15:29 Metoprolol Tartrate (Lopressor) 5 mg Q1H PRN IVP HR>120 09/21/16 15:00 10/21/16 14:59 09/22/16 05:41 Metoprolol Tartrate (Lopressor) 50 mg BID ORAL 09/22/16 18:00 10/22/16 17:59 09/25/16 08:56 Metronidazole (Flagyl) 500 mg Q8HR ORAL 09/25/16 09:30 10/02/16 09:29 09/25/16 13:23 Morphine Sulfate (Morphine Sulfate) 4 mg Q4H PRN IVP Severe Pain (Pain Scale 7-10) 09/21/16 15:30 09/28/16 15:29 Ondansetron HCl (Zofran) 4 mg Q6H PRN IVP Nausea & Vomiting 09/21/16 15:15 10/21/16 15:14 Polyethylene Glycol (Miralax) 17 gm DAILYPRN PRN ORAL Constipation 09/21/16 15:30 10/21/16 15:29 Potassium Chloride (KCl 10% 20 mEq oral solution) 20 meq BID ORAL 09/24/16 18:00 10/24/16 17:59 09/25/16 08:55 Sodium Chloride (0.45% NS 1000ml) 1,000 ml @ 50 mls/hr Q20H IV 09/21/16 15:45 10/21/16 15:44 09/25/16 00:49 LEONORA XIAO Sep 25, 2016 14:32
--- NOTE | 2016-09-25 16:05 | Cardiac Electrophysiology PN ---
Assessment/Plan Assessment/Plan 1. Atrial fibrillation with rapid ventricular response.Continue Metoprolol 50 bid. Not a candidate for Xarelto for severe MR. Hold full anticoagulation for AMS and age almost 89 with fall risk. 2. Hypertension.On Metoprolol 50 bid. 3. 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 Sepsis, Abx per Dr. Candelario. 5. C diff on Flagyl 6. Encephalopathy. DW RN Subjective Subjective On tele. Has some cough today.No chest pain or SOB on mechanical soft diet.No arrhythmia overnight. Objective Last 24 Hour Vital Signs Date Time Temp Pulse Resp B/P Pulse Ox O2 Delivery O2 Flow Rate FiO2 09/25/16 12:00 95 09/25/16 12:00 97.8 85 20 155/93 99 Nasal Cannula 2.0 09/25/16 08:56 103 136/77 09/25/16 08:32 99 Nasal Cannula 2.0 28 09/25/16 08:32 Nasal Cannula 2.0 28 09/25/16 08:32 91 18 Nasal Cannula 2.0 28 09/25/16 08:00 100 09/25/16 08:00 96.8 103 20 136/77 98 Nasal Cannula 2.0 09/25/16 04:06 98.5 86 19 159/80 99 Nasal Cannula 2.0 09/25/16 04:00 98 09/25/16 00:25 90 159/83 09/25/16 00:00 98.3 88 18 174/87 98 Nasal Cannula 2.0 09/24/16 23:55 84 09/24/16 20:00 96.3 82 20 164/83 98 Nasal Cannula 2.0 09/24/16 19:35 87 09/24/16 19:26 Nasal Cannula 2.0 28 09/24/16 19:26 97 Nasal Cannula 2.0 28 09/24/16 19:24 80 18 Nasal Cannula 2.0 28 09/24/16 17:49 85 168/104 Intake and Output 09/24/16 09/25/16 19:00 07:00 Intake Total 650 ml 50 ml Output Total 200 ml 600 ml Balance 450 ml -550 ml Intake Oral 100 ml IV Total 550 ml 50 ml Output Urine Total 200 ml 600 ml # Bowel Movements 5 1 Laboratory Tests Test 09/25/16 13:20 White Blood Count 5.9 K/UL (4.8-10.8) Red Blood Count 5.16 M/UL (4.20-5.40) Hemoglobin 15.5 G/DL (12.0-16.0) Hematocrit 50.4 % (37.0-47.0) H Mean Corpuscular Volume 98 FL (80-99) Mean Corpuscular Hemoglobin 30.0 PG (27.0-31.0) Mean Corpuscular Hemoglobin Concent 30.7 G/DL (32.0-36.0) L Red Cell Distribution Width 13.1 % (11.6-14.8) Platelet Count 229 K/UL (150-450) Mean Platelet Volume 7.0 FL (6.5-10.1) Neutrophils (%) (Auto) 63.1 % (45.0-75.0) Lymphocytes (%) (Auto) 9.9 % (20.0-45.0) L Monocytes (%) (Auto) 12.3 % (1.0-10.0) H Eosinophils (%) (Auto) 6.5 % (0.0-3.0) H Basophils (%) (Auto) 8.2 % (0.0-2.0) H Sodium Level 136 mEQ/L (135-145) Potassium Level 3.7 mEQ/L (3.4-4.9) Chloride Level 95 mEQ/L (98-107) L Carbon Dioxide Level 22 mEQ/L (20-30) Anion Gap 19 (5-15) H Blood Urea Nitrogen 6 mg/dL (7-23) L Creatinine 0.4 mg/dL (0.5-0.9) L Estimat Glomerular Filtration Rate mL/min (>60) Glucose Level 109 mg/dL (74-106) H Calcium Level 8.4 mg/dL (8.6-10.2) L Microbiology Date/Time Source Procedure Growth Status 09/24/16 05:30 Stool Clostridium difficile Toxin Assay - Final Complete Objective HEAD AND NECK: Showed no JVD. LUNGS: Clear. CARDIOVASCULAR: Tachycardic Irregular S1 and S2 with no gallop or murmur. ABDOMEN: Soft and nontender. EXTREMITIES: No pitting edema. KAISER RODRIGUEZ Sep 25, 2016 16:05
--- NOTE | 2016-09-25 17:03 | Wound Care Consultation ---
Wound Assessment Wound Assessment : Wound Present on Admission: Yes New Wound: No Status Change of Wound: No Wound Location Body Site Modif: left, lower, anterior Wound Location Body Site: leg Wound Type: scab Claudia Test: Does not Claudia Wound Thickness: Full Thickness Wound Length: 3.0 Wound Width: 1.5 Wound Depth: utd Percent of Wound Bed Yellow/Wh: 100 Wound Drainage Description: Serosanguineous Wound Drainage Amount: Scant Wound Drainage Odor: None/Absent Tissue Surrounding Wound: Erythemic Wound Comment #1 Left lower anterior leg wound with dry scab. Etiology unknown. Recommendation -Cleanse Left lower leg wound with dry scab, with saline, pat dry, apply adaptic , cover with bordered gauze daily and PRN soiled/dislodged -Offload both heels -Turn and reposition -Keep clean and dry -Optimize nutrition -Assess and f/u with MD for any changes ALVIN ORTEGA RN Sep 25, 2016 17:03
[2016-09-25] MEDS: Metoprolol 5mg/5ml Inj IVP PRN ×2 (17:30→17:38)
[2016-09-25] MEDS ORDERED: 1/2 NS 1000ml IV ONE ×2 (17:54→18:01)
[2016-09-25] MEDS ORDERED: Tubing IV Secondary IV ONE (18:01)
[2016-09-26 00:20] VITALS: BP 152/97
[2016-09-26 04:11] VITALS: BP 158/98
[2016-09-26 06:32] LABS: BASOPHILS % (AUTO) 5.7 % (0.0-2.0); LYMPHOCYTES % (AUTO) 15.1 % (20.0-45.0); MEAN CORPUSCULAR HEMOGLOBIN 31.3 PG (27.0-31.0); MEAN CORPUSCULAR HGB CONC 32.6 G/DL (32.0-36.0); MEAN CORPUSCULAR VOLUME 96 FL (80-99); MEAN PLATELET VOLUME 6.5 FL (6.5-10.1); MONOCYTES % (AUTO) 10.2 % (1.0-10.0); NEUTROPHILS % (AUTO) 61.1 % (45.0-75.0); PLATELET COUNT 199 K/UL (150-450); RED BLOOD COUNT 4.71 M/UL (4.20-5.40); WHITE BLOOD COUNT 5.4 K/UL (4.8-10.8)
[2016-09-26 06:47] LABS: ANION GAP 21 (5-15); CALCIUM 8.5 mg/dL (8.6-10.2); CARBON DIOXIDE 22 mEQ/L (20-30); CHLORIDE 95 mEQ/L (98-107); CREATININE 0.4 mg/dL (0.5-0.9); HEMOLYSIS 6; POTASSIUM 3.3 mEQ/L (3.4-4.9); SODIUM 138 mEQ/L (135-145)
[2016-09-26] MEDS: metroNIDAZOLE 500mg tab ORAL SCH ×3 (06:48→21:27)
[2016-09-26 08:00] VITALS: BP 140/77
[2016-09-26] MEDS: Metoprolol 50mg tab ORAL SCH ×2 (09:00→17:00)
[2016-09-26] MEDS: KCl 10% 20 mEq/15ml liquid ORAL SCH ×2 (09:41→17:00)
[2016-09-26] MEDS: Heparin 5000 units/ml inj SUBQ SCH ×2 (09:43→21:31)
[2016-09-26 12:00] VITALS: BP 154/81
--- NOTE | 2016-09-26 13:35 | Diagnostic Imaging Report ---
APPROVED REPORT CPT Code: 41231 Present Symptoms Shortness of breath BILATERAL: Imaging reveals a patent deep venous system bilaterally. There is no evidence of thrombus within the femoral, popliteal or tibial segments. The greater saphenous veins are also within normal limits. Doppler indicates normal spontaneous flow within these segments.
--- NOTE | 2016-09-26 14:05 | Infectious Diseases Prog Note ---
Assessment/Plan Assessment/Plan A: The patient is an 89-year-old, K.pneumoniae UTI , SP Rx C.difficile diarrhea Sepsis SP ALOC improving leukocytosis SP Fever SP no evidence of Pna Cxray : NAPD AFib with rapid ventricular response History of AFib Hypothyroidism Dementia. Osteoarthritis Anxiety Dysphagia Failure to thrive NKDA Full Code PLAN: cont flagyl d# ( 09/26 SP DC cefepime d# 5 ) ( 09/22 SP IV Vanco d# 2 ) Monitor blood culture. Monitor urine culture. Monitor CBC Monitor BNP Subjective Constitutional: Denies: anorexia, chills, drenching sweats, fatigue, fever, no symptoms, other Allergies: Coded Allergies: No Known Allergies (Unverified , 09/20/16) Subjective transferred out of ICU Objective Vital Signs Last 24 Hour Vital Signs Date Time Temp Pulse Resp B/P Pulse Ox O2 Delivery O2 Flow Rate FiO2 09/26/16 12:08 98.1 09/26/16 12:00 87 09/26/16 12:00 98.1 89 18 154/81 95 Nasal Cannula 2.0 09/26/16 09:00 103 140/77 09/26/16 08:00 115 09/26/16 08:00 98.1 103 24 140/77 97 Nasal Cannula 2.0 09/26/16 07:47 Nasal Cannula 2.0 28 09/26/16 07:46 98 Nasal Cannula 2.0 28 09/26/16 07:45 101 16 Nasal Cannula 2.0 28 09/26/16 04:11 97.0 105 20 158/98 94 Nasal Cannula 2.0 09/26/16 04:00 100 09/26/16 00:20 97.0 95 20 152/97 98 Nasal Cannula 2.0 09/26/16 00:00 101 09/25/16 20:00 101 09/25/16 20:00 97.8 101 19 135/88 98 Nasal Cannula 2.0 09/25/16 19:51 Nasal Cannula 2.0 28 09/25/16 19:30 97 Nasal Cannula 2.0 28 09/25/16 19:30 98 16 Nasal Cannula 2.0 28 09/25/16 17:38 94 161/98 09/25/16 16:00 96 09/25/16 16:00 97.4 101 20 161/98 98 Nasal Cannula 2.0 Height (Feet): 5 Height (Inches): 8.00 Weight (Pounds): 138 HEENT: atraumatic Respiratory/Chest: lungs clear, no respiratory distress Cardiovascular: normal rate Abdomen: soft, non tender Microbiology Date/Time Source Procedure Growth Status 09/24/16 05:30 Stool Clostridium difficile Toxin Assay - Final Complete Laboratory Tests Test 09/26/16 05:50 White Blood Count 5.4 K/UL (4.8-10.8) Red Blood Count 4.71 M/UL (4.20-5.40) Hemoglobin 14.7 G/DL (12.0-16.0) Hematocrit 45.2 % (37.0-47.0) Mean Corpuscular Volume 96 FL (80-99) Mean Corpuscular Hemoglobin 31.3 PG (27.0-31.0) H Mean Corpuscular Hemoglobin Concent 32.6 G/DL (32.0-36.0) Red Cell Distribution Width 13.0 % (11.6-14.8) Platelet Count 199 K/UL (150-450) Mean Platelet Volume 6.5 FL (6.5-10.1) Neutrophils (%) (Auto) 61.1 % (45.0-75.0) Lymphocytes (%) (Auto) 15.1 % (20.0-45.0) L Monocytes (%) (Auto) 10.2 % (1.0-10.0) H Eosinophils (%) (Auto) 8.0 % (0.0-3.0) H Basophils (%) (Auto) 5.7 % (0.0-2.0) H Sodium Level 138 mEQ/L (135-145) Potassium Level 3.3 mEQ/L (3.4-4.9) L Chloride Level 95 mEQ/L (98-107) L Carbon Dioxide Level 22 mEQ/L (20-30) Anion Gap 21 (5-15) H Blood Urea Nitrogen 6 mg/dL (7-23) L Creatinine 0.4 mg/dL (0.5-0.9) L Estimat Glomerular Filtration Rate mL/min (>60) Glucose Level 101 mg/dL (74-106) Calcium Level 8.5 mg/dL (8.6-10.2) L Current Medications Medications (Trade) Dose Ordered Sig/Gary Route PRN Reason Start Time Stop Time Status Last Admin Dose Admin Acetaminophen (Tylenol) 650 mg Q4H PRN ORAL FEVER 09/21/16 15:30 10/21/16 15:29 09/26/16 11:06 Albuterol/ Ipratropium (DuoNeb 0.5-3(2.5)mg/3ml) 3 ml Q4H PRN HHN Shortness of Breath 09/21/16 15:30 09/26/16 15:29 Dextrose (Dextrose 50%) STAT PRN IV Hypoglycemia 09/21/16 15:30 10/21/16 15:29 Heparin Sodium (Porcine) (Heparin 5000 units/ml) 5,000 units EVERY 12 HOURS SUBQ 09/21/16 21:00 10/21/16 20:59 09/26/16 09:43 Lorazepam (Ativan 2mg/ml 1ml) 2 mg Q2H PRN IV For Anxiety 09/21/16 15:30 09/28/16 15:29 09/26/16 11:06 Metoprolol Tartrate (Lopressor) 5 mg Q1H PRN IVP HR>120 09/21/16 15:00 10/21/16 14:59 09/25/16 17:38 Metoprolol Tartrate (Lopressor) 50 mg BID ORAL 09/22/16 18:00 10/22/16 17:59 09/26/16 09:00 Metronidazole (Flagyl) 500 mg Q8HR ORAL 09/25/16 09:30 10/02/16 09:29 09/26/16 06:48 Morphine Sulfate (Morphine Sulfate) 4 mg Q4H PRN IVP Severe Pain (Pain Scale 7-10) 09/21/16 15:30 09/28/16 15:29 Ondansetron HCl (Zofran) 4 mg Q6H PRN IVP Nausea & Vomiting 09/21/16 15:15 10/21/16 15:14 Polyethylene Glycol (Miralax) 17 gm DAILYPRN PRN ORAL Constipation 09/21/16 15:30 10/21/16 15:29 Potassium Chloride (KCl 10% 20 mEq oral solution) 20 meq BID ORAL 09/24/16 18:00 10/24/16 17:59 09/26/16 09:41 Sodium Chloride (0.45% NS 1000ml) 1,000 ml @ 50 mls/hr Q20H IV 09/21/16 15:45 10/21/16 15:44 09/25/16 21:29 JAMIL TOWNSEND M.D. Sep 26, 2016 14:05
--- NOTE | 2016-09-26 14:10 | Internal Med Progress Note ---
Subjective Date of Service: Sep 26, 2016 Physician Name Rodrigo Milner Attending Physician Timo Watkins MD Current Medications Medications (Trade) Dose Ordered Sig/Gary Route PRN Reason Start Time Stop Time Status Last Admin Dose Admin Acetaminophen (Tylenol) 650 mg Q4H PRN ORAL FEVER 09/21/16 15:30 10/21/16 15:29 09/26/16 11:06 Albuterol/ Ipratropium (DuoNeb 0.5-3(2.5)mg/3ml) 3 ml Q4H PRN HHN Shortness of Breath 09/21/16 15:30 09/26/16 15:29 Dextrose (Dextrose 50%) STAT PRN IV Hypoglycemia 09/21/16 15:30 10/21/16 15:29 Heparin Sodium (Porcine) (Heparin 5000 units/ml) 5,000 units EVERY 12 HOURS SUBQ 09/21/16 21:00 10/21/16 20:59 09/26/16 09:43 Lorazepam (Ativan 2mg/ml 1ml) 2 mg Q2H PRN IV For Anxiety 09/21/16 15:30 09/28/16 15:29 09/26/16 11:06 Metoprolol Tartrate (Lopressor) 5 mg Q1H PRN IVP HR>120 09/21/16 15:00 10/21/16 14:59 09/25/16 17:38 Metoprolol Tartrate (Lopressor) 50 mg BID ORAL 09/22/16 18:00 10/22/16 17:59 09/26/16 09:00 Metronidazole (Flagyl) 500 mg Q8HR ORAL 09/25/16 09:30 10/02/16 09:29 09/26/16 06:48 Morphine Sulfate (Morphine Sulfate) 4 mg Q4H PRN IVP Severe Pain (Pain Scale 7-10) 09/21/16 15:30 09/28/16 15:29 Ondansetron HCl (Zofran) 4 mg Q6H PRN IVP Nausea & Vomiting 09/21/16 15:15 10/21/16 15:14 Polyethylene Glycol (Miralax) 17 gm DAILYPRN PRN ORAL Constipation 09/21/16 15:30 10/21/16 15:29 Potassium Chloride (KCl 10% 20 mEq oral solution) 20 meq BID ORAL 09/24/16 18:00 10/24/16 17:59 09/26/16 09:41 Sodium Chloride (0.45% NS 1000ml) 1,000 ml @ 50 mls/hr Q20H IV 09/21/16 15:45 10/21/16 15:44 09/25/16 21:29 Allergies: Coded Allergies: No Known Allergies (Unverified , 09/20/16) ROS Limited/Unobtainable: Yes Subjective Cover for Int Med-Dr Watkins. Still confused. Await video swallow eval Objective Last Vital Signs Date Time Temp Pulse Resp B/P Pulse Ox O2 Delivery O2 Flow Rate FiO2 09/26/16 12:08 98.1 09/26/16 12:00 87 09/26/16 12:00 18 154/81 95 Nasal Cannula 2.0 09/26/16 07:47 28 Laboratory Tests Test 09/26/16 05:50 White Blood Count 5.4 K/UL (4.8-10.8) Red Blood Count 4.71 M/UL (4.20-5.40) Hemoglobin 14.7 G/DL (12.0-16.0) Hematocrit 45.2 % (37.0-47.0) Mean Corpuscular Volume 96 FL (80-99) Mean Corpuscular Hemoglobin 31.3 PG (27.0-31.0) H Mean Corpuscular Hemoglobin Concent 32.6 G/DL (32.0-36.0) Red Cell Distribution Width 13.0 % (11.6-14.8) Platelet Count 199 K/UL (150-450) Mean Platelet Volume 6.5 FL (6.5-10.1) Neutrophils (%) (Auto) 61.1 % (45.0-75.0) Lymphocytes (%) (Auto) 15.1 % (20.0-45.0) L Monocytes (%) (Auto) 10.2 % (1.0-10.0) H Eosinophils (%) (Auto) 8.0 % (0.0-3.0) H Basophils (%) (Auto) 5.7 % (0.0-2.0) H Sodium Level 138 mEQ/L (135-145) Potassium Level 3.3 mEQ/L (3.4-4.9) L Chloride Level 95 mEQ/L (98-107) L Carbon Dioxide Level 22 mEQ/L (20-30) Anion Gap 21 (5-15) H Blood Urea Nitrogen 6 mg/dL (7-23) L Creatinine 0.4 mg/dL (0.5-0.9) L Estimat Glomerular Filtration Rate mL/min (>60) Glucose Level 101 mg/dL (74-106) Calcium Level 8.5 mg/dL (8.6-10.2) L Microbiology Date/Time Source Procedure Growth Status 09/24/16 05:30 Stool Clostridium difficile Toxin Assay - Final Complete Intake and Output 09/25/16 09/26/16 18:59 06:59 Intake Total 600 ml 350 ml Output Total 350 ml 650 ml Balance 250 ml -300 ml IV Total 600 ml 350 ml Output Urine Total 350 ml 650 ml # Bowel Movements 2 Objective General Appearance: WD/WN, no apparent distress, alert EENT: PERRL/EOMI, normal ENT inspection Neck: non-tender, normal alignment, supple, normal inspection Cardiovascular: normal peripheral pulses, normal rate, no gallop/murmur, no JVD , irregularly irregular Respiratory/Chest: chest wall non-tender, lungs clear, normal breath sounds, no respiratory distress, no accessory muscle use Abdomen: normal bowel sounds, non tender, soft, no organomegaly, no mass Extremities: normal range of motion Neurologic: 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 (2) UTI (urinary tract infection) Assessment & Plan: kKebsiella pneumoniae. D/C cefepime per ID (3) Sepsis (4) HTN (hypertension) Assessment & Plan: Cont metoprolol (5) CHF (congestive heart failure) Assessment & Plan: See cardiology note. Await echocardiogram (6) Alzheimer's dementia (7) Hypokalemia Assessment & Plan: Add potassium to IV fluids. Replace potassium PO (8) Dysphagia (9) Atrial fibrillation Assessment & Plan: See cardiology note. Continue metoprolol (10) Hypothyroidism (11) Depression (12) Klebsiella pneumoniae Assessment & Plan: See UTI above. (13) Leukocytosis Assessment & Plan: Resolving. (14) Aortic stenosis, severe Assessment & Plan: See cardiology note. (15) C. difficile diarrhea Assessment & Plan: Cont flagyl orally per ID Status: not improved MILNER,RODRIGO Sep 26, 2016 14:10
[2016-09-26 16:00] VITALS: BP 144/106
--- NOTE | 2016-09-26 16:26 | Cardiac Electrophysiology PN ---
Assessment/Plan Assessment/Plan 1. Atrial fibrillation with rapid ventricular response.Continue Metoprolol 50 bid. Hold full anticoagulation for AMS and age almost 89 with fall risk. 2. Hypertension.On Metoprolol 50 bid. 3. 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 S/P Sepsis 5. C diff on po Flagyl 6. Encephalopathy. DW RN Subjective Subjective No chest pain or SOB on mechanical soft diet.Remained in atrial fib with controlled rate. Objective Last 24 Hour Vital Signs Date Time Temp Pulse Resp B/P Pulse Ox O2 Delivery O2 Flow Rate FiO2 09/26/16 12:08 98.1 09/26/16 12:00 87 09/26/16 12:00 98.1 89 18 154/81 95 Nasal Cannula 2.0 09/26/16 09:00 103 140/77 09/26/16 08:00 115 09/26/16 08:00 98.1 103 24 140/77 97 Nasal Cannula 2.0 09/26/16 07:47 Nasal Cannula 2.0 28 09/26/16 07:46 98 Nasal Cannula 2.0 28 09/26/16 07:45 101 16 Nasal Cannula 2.0 28 09/26/16 04:11 97.0 105 20 158/98 94 Nasal Cannula 2.0 09/26/16 04:00 100 09/26/16 00:20 97.0 95 20 152/97 98 Nasal Cannula 2.0 09/26/16 00:00 101 09/25/16 20:00 101 09/25/16 20:00 97.8 101 19 135/88 98 Nasal Cannula 2.0 09/25/16 19:51 Nasal Cannula 2.0 28 09/25/16 19:30 97 Nasal Cannula 2.0 28 09/25/16 19:30 98 16 Nasal Cannula 2.0 28 09/25/16 17:38 94 161/98 Intake and Output 09/25/16 09/26/16 19:00 07:00 Intake Total 600 ml 350 ml Output Total 350 ml 650 ml Balance 250 ml -300 ml IV Total 600 ml 350 ml Output Urine Total 350 ml 650 ml # Bowel Movements 2 Laboratory Tests Test 09/26/16 05:50 White Blood Count 5.4 K/UL (4.8-10.8) Red Blood Count 4.71 M/UL (4.20-5.40) Hemoglobin 14.7 G/DL (12.0-16.0) Hematocrit 45.2 % (37.0-47.0) Mean Corpuscular Volume 96 FL (80-99) Mean Corpuscular Hemoglobin 31.3 PG (27.0-31.0) H Mean Corpuscular Hemoglobin Concent 32.6 G/DL (32.0-36.0) Red Cell Distribution Width 13.0 % (11.6-14.8) Platelet Count 199 K/UL (150-450) Mean Platelet Volume 6.5 FL (6.5-10.1) Neutrophils (%) (Auto) 61.1 % (45.0-75.0) Lymphocytes (%) (Auto) 15.1 % (20.0-45.0) L Monocytes (%) (Auto) 10.2 % (1.0-10.0) H Eosinophils (%) (Auto) 8.0 % (0.0-3.0) H Basophils (%) (Auto) 5.7 % (0.0-2.0) H Sodium Level 138 mEQ/L (135-145) Potassium Level 3.3 mEQ/L (3.4-4.9) L Chloride Level 95 mEQ/L (98-107) L Carbon Dioxide Level 22 mEQ/L (20-30) Anion Gap 21 (5-15) H Blood Urea Nitrogen 6 mg/dL (7-23) L Creatinine 0.4 mg/dL (0.5-0.9) L Estimat Glomerular Filtration Rate mL/min (>60) Glucose Level 101 mg/dL (74-106) Calcium Level 8.5 mg/dL (8.6-10.2) L Microbiology Date/Time Source Procedure Growth Status 09/24/16 05:30 Stool Clostridium difficile Toxin Assay - Final Complete Objective HEAD AND NECK: Showed no JVD. LUNGS: Clear. CARDIOVASCULAR: Irregular S1 and S2 with no gallop or murmur. ABDOMEN: Soft and nontender. EXTREMITIES: No pitting edema. KAISER RODRIGUEZ Sep 26, 2016 16:26
[2016-09-26] MEDS: NS w/KCl 20mEq 1,000 ML IV SCH (16:44)
[2016-09-26 20:00] VITALS: BP 174/111
[2016-09-26] MEDS: Metoprolol 5mg/5ml Inj IVP PRN (20:10)
[2016-09-27 00:15] VITALS: BP 152/97
[2016-09-27 04:16] VITALS: BP 136/80
[2016-09-27] MEDS: metroNIDAZOLE 500mg tab ORAL SCH ×3 (05:40→21:12)
[2016-09-27 07:51] VITALS: BP 163/91
[2016-09-27 08:09] LABS: BASOPHILS % (AUTO) 2.1 % (0.0-2.0); LYMPHOCYTES % (AUTO) 12.9 % (20.0-45.0); MEAN CORPUSCULAR HEMOGLOBIN 30.9 PG (27.0-31.0); MEAN CORPUSCULAR HGB CONC 31.5 G/DL (32.0-36.0); MEAN CORPUSCULAR VOLUME 98 FL (80-99); MEAN PLATELET VOLUME 6.3 FL (6.5-10.1); MONOCYTES % (AUTO) 9.1 % (1.0-10.0); NEUTROPHILS % (AUTO) 67.9 % (45.0-75.0); PLATELET COUNT 199 K/UL (150-450); RED BLOOD COUNT 4.56 M/UL (4.20-5.40); RED CELL DISTRIBUTION WIDTH 12.5 % (11.6-14.8); WHITE BLOOD COUNT 6.1 K/UL (4.8-10.8)
[2016-09-27 08:20] LABS: ANION GAP 16 (5-15); CALCIUM 8.7 mg/dL (8.6-10.2); CARBON DIOXIDE 25 mEQ/L (20-30); CHLORIDE 99 mEQ/L (98-107); CREATININE 0.5 mg/dL (0.5-0.9); HEMOLYSIS 7; POTASSIUM 3.8 mEQ/L (3.4-4.9); SODIUM 140 mEQ/L (135-145)
[2016-09-27] MEDS: Metoprolol 50mg tab ORAL SCH ×2 (08:49→18:01)
[2016-09-27] MEDS: KCl 10% 20 mEq/15ml liquid ORAL SCH ×2 (08:49→18:01)
[2016-09-27] MEDS: Heparin 5000 units/ml inj SUBQ SCH (08:53)
--- NOTE | 2016-09-27 11:07 | Infectious Diseases Prog Note ---
Assessment/Plan Assessment/Plan A: The patient is an 89-year-old, K.pneumoniae UTI , SP Rx C.difficile diarrhea Sepsis SP ALOC improving leukocytosis SP Fever SP no evidence of Pna Cxray : NAPD AFib with rapid ventricular response History of AFib Hypothyroidism Dementia. Osteoarthritis Anxiety Dysphagia Failure to thrive NKDA Full Code PLAN: cont flagyl d# ( 09/26 SP DC cefepime d# 5 ) ( 09/22 SP IV Vanco d# 2 ) Monitor blood culture. Monitor urine culture. Monitor CBC Monitor BNP Subjective Constitutional: Denies: anorexia, chills, drenching sweats, fatigue, fever, no symptoms, other Allergies: Coded Allergies: No Known Allergies (Unverified , 09/20/16) Subjective comfortable Objective Vital Signs Last 24 Hour Vital Signs Date Time Temp Pulse Resp B/P Pulse Ox O2 Delivery O2 Flow Rate FiO2 09/27/16 08:49 86 169/91 09/27/16 07:51 96.3 86 20 163/91 100 Nasal Cannula 2.0 09/27/16 04:16 97.9 76 20 136/80 100 Non-Rebreather 09/27/16 04:00 86 09/27/16 00:15 97.8 87 20 152/97 100 Nasal Cannula 2.0 09/27/16 00:00 76 09/26/16 20:10 95 171/111 09/26/16 20:00 92 09/26/16 20:00 97.6 99 20 174/111 98 Nasal Cannula 2.0 09/26/16 19:33 Nasal Cannula 2.0 28 09/26/16 19:33 99 16 Nasal Cannula 2.0 28 09/26/16 19:33 98 Nasal Cannula 2.0 28 09/26/16 17:00 101 144/106 09/26/16 16:00 92 09/26/16 16:00 97.8 101 20 144/106 98 Nasal Cannula 2.0 09/26/16 12:08 98.1 09/26/16 12:00 87 09/26/16 12:00 98.1 89 18 154/81 95 Nasal Cannula 2.0 Height (Feet): 5 Height (Inches): 8.00 Weight (Pounds): 138 HEENT: anicteric Respiratory/Chest: normal breath sounds Cardiovascular: regular rhythm Abdomen: soft, non tender Laboratory Tests Test 09/27/16 07:20 White Blood Count 6.1 K/UL (4.8-10.8) Red Blood Count 4.56 M/UL (4.20-5.40) Hemoglobin 14.1 G/DL (12.0-16.0) Hematocrit 44.6 % (37.0-47.0) Mean Corpuscular Volume 98 FL (80-99) Mean Corpuscular Hemoglobin 30.9 PG (27.0-31.0) Mean Corpuscular Hemoglobin Concent 31.5 G/DL (32.0-36.0) L Red Cell Distribution Width 12.5 % (11.6-14.8) Platelet Count 199 K/UL (150-450) Mean Platelet Volume 6.3 FL (6.5-10.1) L Neutrophils (%) (Auto) 67.9 % (45.0-75.0) Lymphocytes (%) (Auto) 12.9 % (20.0-45.0) L Monocytes (%) (Auto) 9.1 % (1.0-10.0) Eosinophils (%) (Auto) 8.0 % (0.0-3.0) H Basophils (%) (Auto) 2.1 % (0.0-2.0) H Sodium Level 140 mEQ/L (135-145) Potassium Level 3.8 mEQ/L (3.4-4.9) Chloride Level 99 mEQ/L (98-107) Carbon Dioxide Level 25 mEQ/L (20-30) Anion Gap 16 (5-15) H Blood Urea Nitrogen 5 mg/dL (7-23) L Creatinine 0.5 mg/dL (0.5-0.9) Estimat Glomerular Filtration Rate mL/min (>60) Glucose Level 90 mg/dL (74-106) Calcium Level 8.7 mg/dL (8.6-10.2) Current Medications Medications (Trade) Dose Ordered Sig/Gary Route PRN Reason Start Time Stop Time Status Last Admin Dose Admin Acetaminophen (Tylenol) 650 mg Q4H PRN ORAL FEVER 09/21/16 15:30 10/21/16 15:29 09/26/16 11:06 Dextrose (Dextrose 50%) STAT PRN IV Hypoglycemia 09/21/16 15:30 10/21/16 15:29 Heparin Sodium (Porcine) (Heparin 5000 units/ml) 5,000 units EVERY 12 HOURS SUBQ 09/21/16 21:00 10/21/16 20:59 09/27/16 08:53 Lorazepam (Ativan 2mg/ml 1ml) 2 mg Q2H PRN IV For Anxiety 09/21/16 15:30 09/28/16 15:29 09/26/16 11:06 Metoprolol Tartrate (Lopressor) 5 mg Q1H PRN IVP HR>120 09/21/16 15:00 10/21/16 14:59 09/26/16 20:10 Metoprolol Tartrate (Lopressor) 50 mg BID ORAL 09/22/16 18:00 10/22/16 17:59 09/27/16 08:49 Metronidazole 500 mg 500 mg Q8HR ORAL 09/25/16 09:30 10/02/16 09:29 09/27/16 05:40 Morphine Sulfate (Morphine Sulfate) 4 mg Q4H PRN IVP Severe Pain (Pain Scale 7-10) 09/21/16 15:30 09/28/16 15:29 Ondansetron HCl (Zofran) 4 mg Q6H PRN IVP Nausea & Vomiting 09/21/16 15:15 10/21/16 15:14 Polyethylene Glycol (Miralax) 17 gm DAILYPRN PRN ORAL Constipation 09/21/16 15:30 10/21/16 15:29 Potassium Chloride (KCl 10% 20 mEq oral solution) 20 meq BID ORAL 09/24/16 18:00 10/24/16 17:59 09/27/16 08:49 Sodium Chloride (NS w/KCl 20mEq) 1,000 ml @ 50 mls/hr Q20H IV 09/26/16 16:00 10/26/16 15:59 09/26/16 16:44 JAMIL TOWNSEND M.D. Sep 27, 2016 11:07
[2016-09-27] MEDS: NS w/KCl 20mEq 1,000 ML IV SCH ×2 (11:10→18:02)
[2016-09-27 11:35] VITALS: BP 149/82
--- NOTE | 2016-09-27 12:27 | Internal Med Progress Note ---
Subjective Date of Service: Sep 27, 2016 Physician Name Rodrigo Milner Attending Physician Timo Watkins MD Current Medications Medications (Trade) Dose Ordered Sig/Gary Route PRN Reason Start Time Stop Time Status Last Admin Dose Admin Acetaminophen (Tylenol) 650 mg Q4H PRN ORAL FEVER 09/21/16 15:30 10/21/16 15:29 09/26/16 11:06 Dextrose (Dextrose 50%) STAT PRN IV Hypoglycemia 09/21/16 15:30 10/21/16 15:29 Heparin Sodium (Porcine) (Heparin 5000 units/ml) 5,000 units EVERY 12 HOURS SUBQ 09/21/16 21:00 10/21/16 20:59 09/27/16 08:53 Lorazepam (Ativan 2mg/ml 1ml) 2 mg Q2H PRN IV For Anxiety 09/21/16 15:30 09/28/16 15:29 09/26/16 11:06 Metoprolol Tartrate (Lopressor) 5 mg Q1H PRN IVP HR>120 09/21/16 15:00 10/21/16 14:59 09/26/16 20:10 Metoprolol Tartrate (Lopressor) 50 mg BID ORAL 09/22/16 18:00 10/22/16 17:59 09/27/16 08:49 Metronidazole 500 mg 500 mg Q8HR ORAL 09/25/16 09:30 10/02/16 09:29 09/27/16 05:40 Morphine Sulfate (Morphine Sulfate) 4 mg Q4H PRN IVP Severe Pain (Pain Scale 7-10) 09/21/16 15:30 09/28/16 15:29 Ondansetron HCl (Zofran) 4 mg Q6H PRN IVP Nausea & Vomiting 09/21/16 15:15 10/21/16 15:14 Polyethylene Glycol (Miralax) 17 gm DAILYPRN PRN ORAL Constipation 09/21/16 15:30 10/21/16 15:29 Potassium Chloride (KCl 10% 20 mEq oral solution) 20 meq BID ORAL 09/24/16 18:00 10/24/16 17:59 09/27/16 08:49 Sodium Chloride (NS w/KCl 20mEq) 1,000 ml @ 50 mls/hr Q20H IV 09/26/16 16:00 10/26/16 15:59 09/27/16 11:10 Allergies: Coded Allergies: No Known Allergies (Unverified , 09/20/16) ROS Limited/Unobtainable: Yes Subjective Cover for Int Med-Dr Watkins. Still confused. Await video swallow eval Objective Last Vital Signs Date Time Temp Pulse Resp B/P Pulse Ox O2 Delivery O2 Flow Rate FiO2 09/27/16 11:35 96.6 84 19 149/82 100 Nasal Cannula 2.0 09/26/16 19:33 28 Laboratory Tests Test 09/27/16 07:20 White Blood Count 6.1 K/UL (4.8-10.8) Red Blood Count 4.56 M/UL (4.20-5.40) Hemoglobin 14.1 G/DL (12.0-16.0) Hematocrit 44.6 % (37.0-47.0) Mean Corpuscular Volume 98 FL (80-99) Mean Corpuscular Hemoglobin 30.9 PG (27.0-31.0) Mean Corpuscular Hemoglobin Concent 31.5 G/DL (32.0-36.0) L Red Cell Distribution Width 12.5 % (11.6-14.8) Platelet Count 199 K/UL (150-450) Mean Platelet Volume 6.3 FL (6.5-10.1) L Neutrophils (%) (Auto) 67.9 % (45.0-75.0) Lymphocytes (%) (Auto) 12.9 % (20.0-45.0) L Monocytes (%) (Auto) 9.1 % (1.0-10.0) Eosinophils (%) (Auto) 8.0 % (0.0-3.0) H Basophils (%) (Auto) 2.1 % (0.0-2.0) H Sodium Level 140 mEQ/L (135-145) Potassium Level 3.8 mEQ/L (3.4-4.9) Chloride Level 99 mEQ/L (98-107) Carbon Dioxide Level 25 mEQ/L (20-30) Anion Gap 16 (5-15) H Blood Urea Nitrogen 5 mg/dL (7-23) L Creatinine 0.5 mg/dL (0.5-0.9) Estimat Glomerular Filtration Rate mL/min (>60) Glucose Level 90 mg/dL (74-106) Calcium Level 8.7 mg/dL (8.6-10.2) Intake and Output 09/26/16 09/27/16 19:00 07:00 Intake Total 450 ml 600 ml Output Total 150 ml 450 ml Balance 300 ml 150 ml IV Total 450 ml 600 ml Output Urine Total 150 ml 450 ml Objective General Appearance: WD/WN, no apparent distress, alert EENT: PERRL/EOMI, normal ENT inspection Neck: non-tender, normal alignment, supple, normal inspection Cardiovascular: normal peripheral pulses, normal rate, no gallop/murmur, no JVD , irregularly irregular Respiratory/Chest: chest wall non-tender, lungs clear, normal breath sounds, no respiratory distress, no accessory muscle use Abdomen: normal bowel sounds, non tender, soft, no organomegaly, no mass Extremities: normal range of motion 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 (2) UTI (urinary tract infection) Assessment & Plan: kKebsiella pneumoniae. D/C cefepime per ID (3) Sepsis (4) HTN (hypertension) Assessment & Plan: Cont metoprolol (5) CHF (congestive heart failure) Assessment & Plan: See cardiology note. Await echocardiogram (6) Alzheimer's dementia (7) Hypokalemia Assessment & Plan: Add potassium to IV fluids. Replace potassium PO (8) Dysphagia (9) Atrial fibrillation Assessment & Plan: See cardiology note. Continue metoprolol (10) Hypothyroidism (11) Depression (12) Klebsiella pneumoniae Assessment & Plan: See UTI above. (13) Leukocytosis Assessment & Plan: Resolving. (14) Aortic stenosis, severe Assessment & Plan: See cardiology note. (15) C. difficile diarrhea Assessment & Plan: Cont flagyl orally per ID RODRIGO MILNER Sep 27, 2016 12:27
--- NOTE | 2016-09-27 12:36 | Internal Med Progress Note ---
Subjective Date of Service: Sep 27, 2016 Physician Name Rodrigo Milner Attending Physician Timo Watkins MD Current Medications Medications (Trade) Dose Ordered Sig/Gary Route PRN Reason Start Time Stop Time Status Last Admin Dose Admin Acetaminophen (Tylenol) 650 mg Q4H PRN ORAL FEVER 09/21/16 15:30 10/21/16 15:29 09/26/16 11:06 Dextrose (Dextrose 50%) STAT PRN IV Hypoglycemia 09/21/16 15:30 10/21/16 15:29 Heparin Sodium (Porcine) (Heparin 5000 units/ml) 5,000 units EVERY 12 HOURS SUBQ 09/21/16 21:00 10/21/16 20:59 09/27/16 08:53 Lorazepam (Ativan 2mg/ml 1ml) 2 mg Q2H PRN IV For Anxiety 09/21/16 15:30 09/28/16 15:29 09/26/16 11:06 Metoprolol Tartrate (Lopressor) 5 mg Q1H PRN IVP HR>120 09/21/16 15:00 10/21/16 14:59 09/26/16 20:10 Metoprolol Tartrate (Lopressor) 50 mg BID ORAL 09/22/16 18:00 10/22/16 17:59 09/27/16 08:49 Metronidazole 500 mg 500 mg Q8HR ORAL 09/25/16 09:30 10/02/16 09:29 09/27/16 05:40 Morphine Sulfate (Morphine Sulfate) 4 mg Q4H PRN IVP Severe Pain (Pain Scale 7-10) 09/21/16 15:30 09/28/16 15:29 Ondansetron HCl (Zofran) 4 mg Q6H PRN IVP Nausea & Vomiting 09/21/16 15:15 10/21/16 15:14 Polyethylene Glycol (Miralax) 17 gm DAILYPRN PRN ORAL Constipation 09/21/16 15:30 10/21/16 15:29 Potassium Chloride (KCl 10% 20 mEq oral solution) 20 meq BID ORAL 09/24/16 18:00 10/24/16 17:59 09/27/16 08:49 Sodium Chloride (NS w/KCl 20mEq) 1,000 ml @ 50 mls/hr Q20H IV 09/26/16 16:00 10/26/16 15:59 09/27/16 11:10 Allergies: Coded Allergies: No Known Allergies (Unverified , 09/20/16) ROS Limited/Unobtainable: Yes Subjective Cover for Int Med-Dr Watkins. Still confused. Failed video swallow; await PEG eval. Objective Last Vital Signs Date Time Temp Pulse Resp B/P Pulse Ox O2 Delivery O2 Flow Rate FiO2 09/27/16 11:35 96.6 84 19 149/82 100 Nasal Cannula 2.0 09/26/16 19:33 28 Laboratory Tests Test 09/27/16 07:20 White Blood Count 6.1 K/UL (4.8-10.8) Red Blood Count 4.56 M/UL (4.20-5.40) Hemoglobin 14.1 G/DL (12.0-16.0) Hematocrit 44.6 % (37.0-47.0) Mean Corpuscular Volume 98 FL (80-99) Mean Corpuscular Hemoglobin 30.9 PG (27.0-31.0) Mean Corpuscular Hemoglobin Concent 31.5 G/DL (32.0-36.0) L Red Cell Distribution Width 12.5 % (11.6-14.8) Platelet Count 199 K/UL (150-450) Mean Platelet Volume 6.3 FL (6.5-10.1) L Neutrophils (%) (Auto) 67.9 % (45.0-75.0) Lymphocytes (%) (Auto) 12.9 % (20.0-45.0) L Monocytes (%) (Auto) 9.1 % (1.0-10.0) Eosinophils (%) (Auto) 8.0 % (0.0-3.0) H Basophils (%) (Auto) 2.1 % (0.0-2.0) H Sodium Level 140 mEQ/L (135-145) Potassium Level 3.8 mEQ/L (3.4-4.9) Chloride Level 99 mEQ/L (98-107) Carbon Dioxide Level 25 mEQ/L (20-30) Anion Gap 16 (5-15) H Blood Urea Nitrogen 5 mg/dL (7-23) L Creatinine 0.5 mg/dL (0.5-0.9) Estimat Glomerular Filtration Rate mL/min (>60) Glucose Level 90 mg/dL (74-106) Calcium Level 8.7 mg/dL (8.6-10.2) Intake and Output 09/26/16 09/27/16 19:00 07:00 Intake Total 450 ml 600 ml Output Total 150 ml 450 ml Balance 300 ml 150 ml IV Total 450 ml 600 ml Output Urine Total 150 ml 450 ml Objective General Appearance: WD/WN, no apparent distress, alert EENT: PERRL/EOMI, normal ENT inspection Neck: non-tender, normal alignment, supple, normal inspection Cardiovascular: normal peripheral pulses, normal rate, no gallop/murmur, no JVD , irregularly irregular Respiratory/Chest: chest wall non-tender, lungs clear, normal breath sounds, no respiratory distress, no accessory muscle use Abdomen: normal bowel sounds, non tender, soft, no organomegaly, no mass Extremities: normal range of motion 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 (2) UTI (urinary tract infection) Assessment & Plan: kKebsiella pneumoniae. D/C cefepime per ID (3) Sepsis (4) HTN (hypertension) Assessment & Plan: Cont metoprolol (5) CHF (congestive heart failure) Assessment & Plan: See cardiology note. Await echocardiogram (6) Alzheimer's dementia (7) Hypokalemia Assessment & Plan: Add potassium to IV fluids. Replace potassium PO (8) Dysphagia Assessment & Plan: Failed video swallow; Await GI consul for PEG eval. (9) Atrial fibrillation Assessment & Plan: See cardiology note. Continue metoprolol (10) Hypothyroidism (11) Depression (12) Klebsiella pneumoniae Assessment & Plan: See UTI above. (13) Leukocytosis Assessment & Plan: Resolving. (14) Aortic stenosis, severe Assessment & Plan: See cardiology note. (15) C. difficile diarrhea Assessment & Plan: Cont oral flagyl per ID Status: not improved RODRIGO MILNER Sep 27, 2016 12:36
--- NOTE | 2016-09-27 14:24 | Cardiac Electrophysiology PN ---
Assessment/Plan Assessment/Plan 1. Atrial fibrillation with rapid ventricular response.Continue Metoprolol 50 bid. Hold full anticoagulation for AMS and age 90 and fall risk. 2. Hypertension.On Metoprolol 50 bid. 3. 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 S/P Sepsis 5. C diff on po Flagyl 6. Encephalopathy. DW RN DC tele Subjective Subjective Comfortable in NAD.Remained in atrial fib with controlled rate. Objective Last 24 Hour Vital Signs Date Time Temp Pulse Resp B/P Pulse Ox O2 Delivery O2 Flow Rate FiO2 09/27/16 12:00 83 09/27/16 11:35 96.6 84 19 149/82 100 Nasal Cannula 2.0 09/27/16 08:49 86 169/91 09/27/16 08:00 82 09/27/16 07:51 96.3 86 20 163/91 100 Nasal Cannula 2.0 09/27/16 04:16 97.9 76 20 136/80 100 Non-Rebreather 09/27/16 04:00 86 09/27/16 00:15 97.8 87 20 152/97 100 Nasal Cannula 2.0 09/27/16 00:00 76 09/26/16 20:10 95 171/111 09/26/16 20:00 92 09/26/16 20:00 97.6 99 20 174/111 98 Nasal Cannula 2.0 09/26/16 19:33 Nasal Cannula 2.0 28 09/26/16 19:33 99 16 Nasal Cannula 2.0 28 09/26/16 19:33 98 Nasal Cannula 2.0 28 09/26/16 17:00 101 144/106 09/26/16 16:00 92 09/26/16 16:00 97.8 101 20 144/106 98 Nasal Cannula 2.0 Intake and Output 09/26/16 09/27/16 19:00 07:00 Intake Total 450 ml 600 ml Output Total 150 ml 450 ml Balance 300 ml 150 ml IV Total 450 ml 600 ml Output Urine Total 150 ml 450 ml Laboratory Tests Test 09/27/16 07:20 White Blood Count 6.1 K/UL (4.8-10.8) Red Blood Count 4.56 M/UL (4.20-5.40) Hemoglobin 14.1 G/DL (12.0-16.0) Hematocrit 44.6 % (37.0-47.0) Mean Corpuscular Volume 98 FL (80-99) Mean Corpuscular Hemoglobin 30.9 PG (27.0-31.0) Mean Corpuscular Hemoglobin Concent 31.5 G/DL (32.0-36.0) L Red Cell Distribution Width 12.5 % (11.6-14.8) Platelet Count 199 K/UL (150-450) Mean Platelet Volume 6.3 FL (6.5-10.1) L Neutrophils (%) (Auto) 67.9 % (45.0-75.0) Lymphocytes (%) (Auto) 12.9 % (20.0-45.0) L Monocytes (%) (Auto) 9.1 % (1.0-10.0) Eosinophils (%) (Auto) 8.0 % (0.0-3.0) H Basophils (%) (Auto) 2.1 % (0.0-2.0) H Sodium Level 140 mEQ/L (135-145) Potassium Level 3.8 mEQ/L (3.4-4.9) Chloride Level 99 mEQ/L (98-107) Carbon Dioxide Level 25 mEQ/L (20-30) Anion Gap 16 (5-15) H Blood Urea Nitrogen 5 mg/dL (7-23) L Creatinine 0.5 mg/dL (0.5-0.9) Estimat Glomerular Filtration Rate mL/min (>60) Glucose Level 90 mg/dL (74-106) Calcium Level 8.7 mg/dL (8.6-10.2) Objective HEAD AND NECK: Showed no JVD. LUNGS: Coarse rhonchi. CARDIOVASCULAR: Irregular S1 and S2 with no gallop or murmur. ABDOMEN: Soft and nontender. EXTREMITIES: 1 plus edema. KAISER RODRIGUEZ Sep 27, 2016 14:24
[2016-09-27] MEDS ORDERED: Miralax 17gm pkt ORAL PRN (15:30)
[2016-09-27] MEDS ORDERED: LORazepam Inj 2mg/ml 1ml IV PRN (15:30)
--- NOTE | 2016-09-27 15:30 | Pulmonology Progress Note ---
Assessment/Plan Problems: (1) Acute encephalopathy (2) Atrial fibrillation (3) Altered level of consciousness (4) Severe sepsis (5) Depression (6) Hypothyroidism (7) halfway resident Assessment/Plan cdiff positive continue antibiotics heart rate controlled better Blood pressure better dc planning if ok with vice president of development Subjective ROS Limited/Unobtainable: No Constitutional: Reports: no symptoms Respiratory: Reports: no symptoms, wheezing Allergies: Coded Allergies: No Known Allergies (Unverified , 09/20/16) Objective Last 24 Hour Vital Signs Date Time Temp Pulse Resp B/P Pulse Ox O2 Delivery O2 Flow Rate FiO2 09/27/16 12:00 83 09/27/16 11:35 96.6 84 19 149/82 100 Nasal Cannula 2.0 09/27/16 08:49 86 169/91 09/27/16 08:00 82 09/27/16 07:51 96.3 86 20 163/91 100 Nasal Cannula 2.0 09/27/16 04:16 97.9 76 20 136/80 100 Non-Rebreather 09/27/16 04:00 86 09/27/16 00:15 97.8 87 20 152/97 100 Nasal Cannula 2.0 09/27/16 00:00 76 09/26/16 20:10 95 171/111 09/26/16 20:00 92 09/26/16 20:00 97.6 99 20 174/111 98 Nasal Cannula 2.0 09/26/16 19:33 Nasal Cannula 2.0 28 09/26/16 19:33 99 16 Nasal Cannula 2.0 28 09/26/16 19:33 98 Nasal Cannula 2.0 28 09/26/16 17:00 101 144/106 09/26/16 16:00 92 09/26/16 16:00 97.8 101 20 144/106 98 Nasal Cannula 2.0 Intake and Output 09/26/16 09/27/16 19:00 07:00 Intake Total 450 ml 600 ml Output Total 150 ml 450 ml Balance 300 ml 150 ml IV Total 450 ml 600 ml Output Urine Total 150 ml 450 ml General Appearance: WD/WN HEENT: normocephalic, atraumatic Respiratory/Chest: chest wall non-tender, lungs clear Cardiovascular: normal peripheral pulses, normal rate Abdomen: soft, non tender Extremities: no cyanosis, no clubbing Skin: no rash Neurologic/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: 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, no motor/sensory deficits Laboratory Tests 09/27/16 07:20: White Blood Count 6.1, Red Blood Count 4.56, Hemoglobin 14.1, Hematocrit 44.6, Mean Corpuscular Volume 98, Mean Corpuscular Hemoglobin 30.9, Mean Corpuscular Hemoglobin Concent 31.5L, Red Cell Distribution Width 12.5, Platelet Count 199, Mean Platelet Volume 6.3L, Neutrophils (%) (Auto) 67.9, Lymphocytes (%) (Auto) 12.9L, Monocytes (%) (Auto) 9.1, Eosinophils (%) (Auto) 8.0H, Basophils (%) ( Auto) 2.1H, Sodium Level 140, Potassium Level 3.8, Chloride Level 99, Carbon Dioxide Level 25, Anion Gap 16H, Blood Urea Nitrogen 5L, Creatinine 0.5, Estimat Glomerular Filtration Rate , Glucose Level 90, Calcium Level 8.7 Current Medications Medications (Trade) Dose Ordered Sig/Gary Route PRN Reason Start Time Stop Time Status Last Admin Dose Admin Acetaminophen (Tylenol) 650 mg Q4H PRN ORAL FEVER 09/27/16 15:30 10/27/16 15:29 UNV Cefoxitin Sodium 1 gm/Dextrose 50 ml @ 100 mls/hr ONCE ONCE IV 09/28/16 08:00 09/28/16 08:29 UNV Dextrose (Dextrose 50%) STAT PRN IV Hypoglycemia 09/27/16 15:30 10/27/16 15:29 UNV Heparin Sodium (Porcine) (Heparin 5000 units/ml) 5,000 units EVERY 12 HOURS SUBQ 09/27/16 21:00 10/27/16 20:59 UNV Lorazepam (Ativan 2mg/ml 1ml) 2 mg Q2H PRN IV For Anxiety 09/27/16 15:30 10/04/16 15:29 UNV Metoprolol Tartrate (Lopressor) 5 mg Q1H PRN IVP HR>120 09/27/16 16:00 10/27/16 15:59 UNV Metoprolol Tartrate (Lopressor) 50 mg BID ORAL 09/27/16 18:00 10/27/16 17:59 UNV Metronidazole (Flagyl) 500 mg Q8HR ORAL 09/27/16 22:00 10/04/16 21:59 UNV Morphine Sulfate (Morphine Sulfate) 4 mg Q4H PRN IVP Severe Pain (Pain Scale 7-10) 09/27/16 15:30 10/04/16 15:29 UNV Ondansetron HCl (Zofran) 4 mg Q6H PRN IVP Nausea & Vomiting 09/27/16 21:15 10/27/16 21:14 UNV Polyethylene Glycol (Miralax) 17 gm DAILYPRN PRN ORAL Constipation 09/27/16 15:30 10/27/16 15:29 UNV Potassium Chloride (KCl 10% 20 mEq oral solution) 20 meq BID ORAL 09/27/16 18:00 10/27/16 17:59 UNV Sodium Chloride (NS w/KCl 20mEq) 1,000 ml @ 50 mls/hr Q20H IV 09/27/16 15:30 10/27/16 15:29 UNV LEONORA XIAO Sep 27, 2016 15:30
--- NOTE | 2016-09-27 15:33 | GI Initial Consult Note ---
Isaac,Carine Bakari N.PAlexa 09/27/16 1533: History of Present Illness General Date patient seen: Sep 27, 2016 Time patient seen: 15:24 Reason for Hospitalization: Altered Level of Consciousness Referring physician: Dr. Watkins Reason for Consultation: PEG EVALUATION Present Illness HPI The patient is a resident of [facility]. According to staff at [facility], the patient began to experience altered mental status. This was worsening over the last 24 hours. The patient presented to [facility]. The patient was found to be hypotensive. The patient was found to have urinary tract infection. The patient was admitted for urinary tract infection with hypotension, rule out sepsis. GI NOTE: HPI as noted above. GI consulted for PEG evaluation per ST recommendations. (See full report below). Pt seen on floor, awake, alert NAD, non verbal. Per RN report the patient has had almost no PO intake the past few days. She presents today with dysphagia and hypoalbuminemia. Unknown history of any endoscopic procedures. ST NOTE: SWALLOW STATUS FOLLOWED UP PT'S CONDITIONS CHART REVIEWED. PT DID NOT MEET PO INTAKE GOALS. REFUSED. PER WIRE WELDER, PT DISLIKE THE FOOD CONSISTENCIES. SHOWED THE VIDEOSWALLOW STUDY IMAGES AND PT HAS HIGH RISK FOR ASPIRATION. DUE TO PT HAS HIGH RISK FOR ASPIRATION AND PO INTAKE IS SUBOPTIMAL. PEG PLACEMENT SHOULD BE CONSIDERED IF FAMILY AGREES. Home Meds Reported Medications Bisacodyl* (DULCOLAX*) 5 Mg Tablet., 5 MG ORAL DAILY, #10 TAB 0 Refills 09/21/16 Lorazepam* (ATIVAN*) 0.5 Mg Tablet, 0.5 MG ORAL THREE TIMES A DAY, TAB 09/21/16 Rivaroxaban (XARELTO) 20 Mg Tablet, 20 MG ORAL for 30 Days, MG 0 Refills 09/21/16 Ascorbic Acid* (VITAMIN C*) 500 Mg Tablet, 500 MG ORAL DAILY, #30 TAB 0 Refills 09/21/16 Acetaminophen With Codeine (T#3) (TYLENOL #3 TAB*) Y Tab, 1 TAB ORAL Q8HR Y for For Pain, TAB 09/21/16 Sennosides (SENNA) 8.6 Mg Tablet, 8.6 MG PO, TAB 09/21/16 Mirtazapine* (REMERON*) 15 Mg Tablet, 15 MG ORAL BEDTIME, TAB 09/21/16 Memantine Hcl* (NAMENDA*) 5 Mg Tablet, 5 MG ORAL TWICE A DAY, TAB 09/21/16 Multivitamins* (MULTIVITAMINS*) 1 Each Tablet, 1 TAB ORAL DAILY, TAB 0 Refills 09/21/16 Metoprolol Succinate* (METOPROLOL SUCCINATE*) 25 Mg Tab.er.24h, 12.5 MG ORAL DAILY, TAB 09/21/16 Melatonin (MELATONIN 5 MG TABLET) 1 Each Tablet, 1 TAB ORAL BEDTIME Y for Insomnia, TAB 09/21/16 Acetaminophen (Acetaminophen) 325 Mg Capsule, 650 MG PO Q6HR Y for fever, CAP 09/20/16 Med list reviewed/reconciled: Yes Allergies: Coded Allergies: No Known Allergies (Unverified , 09/20/16) Patient History Limited by: medical condition History Provided By: Medical Record [facility] Narrative PAST MEDICAL HISTORY: Significant for: 1. Atrial fibrillation. 2. Hypertension. 3. Hypothyroidism. 4. Alzheimer's dementia. 5. Dysphagia. 6. Depression. PAST SURGICAL HISTORY: Unknown. Social History: Denies: alcohol use, drug use, other, smoking Review of Systems All Other Systems: limited Physical Exam Vital Signs Date Time Temp Pulse Resp B/P Pulse Ox O2 Delivery O2 Flow Rate FiO2 09/23/16 08:00 84 09/23/16 08:03 96.1 18 146/91 99 Nasal Cannula 2.0 09/23/16 08:08 28 Sp02 EP Interpretation: reviewed Labs Laboratory Tests Test 09/27/16 07:20 White Blood Count 6.1 K/UL (4.8-10.8) Red Blood Count 4.56 M/UL (4.20-5.40) Hemoglobin 14.1 G/DL (12.0-16.0) Hematocrit 44.6 % (37.0-47.0) Mean Corpuscular Volume 98 FL (80-99) Mean Corpuscular Hemoglobin 30.9 PG (27.0-31.0) Mean Corpuscular Hemoglobin Concent 31.5 G/DL (32.0-36.0) L Red Cell Distribution Width 12.5 % (11.6-14.8) Platelet Count 199 K/UL (150-450) Mean Platelet Volume 6.3 FL (6.5-10.1) L Neutrophils (%) (Auto) 67.9 % (45.0-75.0) Lymphocytes (%) (Auto) 12.9 % (20.0-45.0) L Monocytes (%) (Auto) 9.1 % (1.0-10.0) Eosinophils (%) (Auto) 8.0 % (0.0-3.0) H Basophils (%) (Auto) 2.1 % (0.0-2.0) H Sodium Level 140 mEQ/L (135-145) Potassium Level 3.8 mEQ/L (3.4-4.9) Chloride Level 99 mEQ/L (98-107) Carbon Dioxide Level 25 mEQ/L (20-30) Anion Gap 16 (5-15) H Blood Urea Nitrogen 5 mg/dL (7-23) L Creatinine 0.5 mg/dL (0.5-0.9) Estimat Glomerular Filtration Rate mL/min (>60) Glucose Level 90 mg/dL (74-106) Calcium Level 8.7 mg/dL (8.6-10.2) General Appearance: well appearing, no apparent distress, alert Head: normocephalic EENT: normal ENT inspection Neck: supple Respiratory: normal breath sounds, no respiratory distress Cardiovascular: normal rate Gastrointestinal: normal inspection, non tender, soft Rectal: deferred Neurologic: alert Skin: normal color, no rash, warm/dry Lymphatic: normal inspection, no adenopathy Current Medications Current Medications Medications (Trade) Dose Ordered Sig/Gary Route PRN Reason Start Time Stop Time Status Last Admin Dose Admin Acetaminophen (Tylenol) 650 mg Q4H PRN ORAL FEVER 09/27/16 15:30 10/27/16 15:29 UNV Cefoxitin Sodium 1 gm/Dextrose 50 ml @ 100 mls/hr ONCE ONCE IV 09/28/16 08:00 09/28/16 08:29 UNV Dextrose (Dextrose 50%) STAT PRN IV Hypoglycemia 09/27/16 15:30 10/27/16 15:29 UNV Heparin Sodium (Porcine) (Heparin 5000 units/ml) 5,000 units EVERY 12 HOURS SUBQ 09/27/16 21:00 10/27/16 20:59 UNV Lorazepam (Ativan 2mg/ml 1ml) 2 mg Q2H PRN IV For Anxiety 09/27/16 15:30 10/04/16 15:29 UNV Metoprolol Tartrate (Lopressor) 5 mg Q1H PRN IVP HR>120 09/27/16 16:00 10/27/16 15:59 UNV Metoprolol Tartrate (Lopressor) 50 mg BID ORAL 09/27/16 18:00 10/27/16 17:59 UNV Metronidazole (Flagyl) 500 mg Q8HR ORAL 09/27/16 22:00 10/04/16 21:59 UNV Morphine Sulfate (Morphine Sulfate) 4 mg Q4H PRN IVP Severe Pain (Pain Scale 7-10) 09/27/16 15:30 10/04/16 15:29 UNV Ondansetron HCl (Zofran) 4 mg Q6H PRN IVP Nausea & Vomiting 09/27/16 21:15 10/27/16 21:14 UNV Polyethylene Glycol (Miralax) 17 gm DAILYPRN PRN ORAL Constipation 09/27/16 15:30 10/27/16 15:29 UNV Potassium Chloride (KCl 10% 20 mEq oral solution) 20 meq BID ORAL 09/27/16 18:00 10/27/16 17:59 UNV Sodium Chloride (NS w/KCl 20mEq) 1,000 ml @ 50 mls/hr Q20H IV 09/27/16 15:30 10/27/16 15:29 UNV GI: Plan Problems: (1) C. difficile diarrhea (2) Encounter for PEG (percutaneous endoscopic gastrostomy) (3) Alzheimer's dementia (4) Dysphagia (5) care home resident Plan Pt scheduled for PEG tomorrow. - NPO @ [facility]. - hold heparin sq ST notes reviewed. cdiff positive >> PO Flagyl bowel regime H2 fu labs Discussed with Dr. Garland. Thank you for referring this patient, we will follow. JOSHUA GARLAND 09/28/16 1403: History of Present Illness General Reason for Hospitalization: Altered Level of Consciousness Present Illness Home Meds Reported Medications Bisacodyl* (DULCOLAX*) 5 Mg Tablet.dr 5 MG ORAL DAILY, #10 TAB 0 Refills 09/21/16 Lorazepam* (ATIVAN*) 0.5 Mg Tablet, 0.5 MG ORAL THREE TIMES A DAY, TAB 09/21/16 Rivaroxaban (XARELTO) 20 Mg Tablet, 20 MG ORAL for 30 Days, MG 0 Refills 09/21/16 Ascorbic Acid* (VITAMIN C*) 500 Mg Tablet, 500 MG ORAL DAILY, #30 TAB 0 Refills 09/21/16 Acetaminophen With Codeine (T#3) (TYLENOL #3 TAB*) Y Tab, 1 TAB ORAL Q8HR Y for For Pain, TAB 09/21/16 Sennosides (SENNA) 8.6 Mg Tablet, 8.6 MG PO, TAB 09/21/16 Mirtazapine* (REMERON*) 15 Mg Tablet, 15 MG ORAL BEDTIME, TAB 09/21/16 Memantine Hcl* (NAMENDA*) 5 Mg Tablet, 5 MG ORAL TWICE A DAY, TAB 09/21/16 Multivitamins* (MULTIVITAMINS*) 1 Each Tablet, 1 TAB ORAL DAILY, TAB 0 Refills 09/21/16 Metoprolol Succinate* (METOPROLOL SUCCINATE*) 25 Mg Tab.er.24h, 12.5 MG ORAL DAILY, TAB 09/21/16 Melatonin (MELATONIN 5 MG TABLET) 1 Each Tablet, 1 TAB ORAL BEDTIME Y for Insomnia, TAB 09/21/16 Acetaminophen (Acetaminophen) 325 Mg Capsule, 650 MG PO Q6HR Y for fever, CAP 09/20/16 Allergies: Coded Allergies: No Known Allergies (Unverified , 09/20/16) GI: Plan Plan The patient was seen and examined at bedside and all new and available data was reviewed in the patients chart. I agree with the above findings, impression and plan. (Patient seen earlier today. Signature stamp does not reflect patient encounter time.). -Joshua Isaac,[employer] [facility] [employer] [facility] Sep 27, 2016 15:33 JOSHUA GARLAND Sep 28, 2016 14:03
[2016-09-27 16:00] VITALS: BP_SYST 148; BP_SYST 95; BP_DIAS 63; BP_DIAS 97
[2016-09-27] MEDS ORDERED: Metoprolol 5mg/5ml Inj IVP PRN (16:00)
[2016-09-27 20:00] VITALS: BP 137/73
[2016-09-27] MEDS ORDERED: Heparin 5000 units/ml inj SUBQ SCH (21:00)
[2016-09-27] MEDS: Famotidine 20 MG/ 2ML VIAL IVP SCH (21:12)
[2016-09-28 00:41] VITALS: BP 140/66
[2016-09-28 04:00] VITALS: BP 153/88
[2016-09-28] MEDS ORDERED: cefOXitin Sod 1 GM in D5W 50 ML IV SCH (06:00)
[2016-09-28] MEDS: metroNIDAZOLE 500mg tab ORAL SCH ×3 (06:00→21:25)
[2016-09-28 07:00] LABS: BASOPHILS % (AUTO) 1.4 % (0.0-2.0); EOSINOPHILS % (AUTO) 3.8 % (0.0-3.0); LYMPHOCYTES % (AUTO) 14.4 % (20.0-45.0); MEAN CORPUSCULAR HEMOGLOBIN 31.9 PG (27.0-31.0); MEAN CORPUSCULAR HGB CONC 32.7 G/DL (32.0-36.0); MEAN CORPUSCULAR VOLUME 98 FL (80-99); MEAN PLATELET VOLUME 5.9 FL (6.5-10.1); MONOCYTES % (AUTO) 10.3 % (1.0-10.0); NEUTROPHILS % (AUTO) 70.1 % (45.0-75.0); PLATELET COUNT 235 K/UL (150-450); RED BLOOD COUNT 5.08 M/UL (4.20-5.40); RED CELL DISTRIBUTION WIDTH 13.5 % (11.6-14.8); WHITE BLOOD COUNT 8.3 K/UL (4.8-10.8)
[2016-09-28 07:05] LABS: INR 1.4 (0.9-1.1)
[2016-09-28 07:14] LABS: ANION GAP 18 (5-15); CALCIUM 8.9 mg/dL (8.6-10.2); CARBON DIOXIDE 23 mEQ/L (20-30); CHLORIDE 100 mEQ/L (98-107); CREATININE 0.5 mg/dL (0.5-0.9); HEMOLYSIS 4; POTASSIUM 3.9 mEQ/L (3.4-4.9); SODIUM 141 mEQ/L (135-145)
[2016-09-28] MEDS ORDERED: cefOXitin Sod 1 GM in D5W 50 ML IV ONE (08:00)
[2016-09-28 08:45] VITALS: BP 149/88
[2016-09-28] MEDS: KCl 10% 20 mEq/15ml liquid ORAL SCH ×2 (10:47→17:48)
[2016-09-28] MEDS: Metoprolol 50mg tab ORAL SCH ×2 (10:47→17:47)
[2016-09-28] MEDS: Famotidine 20 MG/ 2ML VIAL IVP SCH ×2 (10:47→21:25)
[2016-09-28 12:07] VITALS: BP 142/82
--- NOTE | 2016-09-28 13:15 | GI Progress Note ---
Assessment/Plan Problems: (1) Encounter for PEG (percutaneous endoscopic gastrostomy) ICD Codes: Z43.1 - Encounter for attention to gastrostomy SNOMED: 127064657, 556149249 (2) C. difficile diarrhea ICD Codes: A04.7 - Enterocolitis due to Clostridium difficile SNOMED: 49686317, 909982104 (3) Dysphagia ICD Codes: R13.10 - Dysphagia, unspecified SNOMED: 43100539, 274807313 Status: unchanged Status Narrative Discussed with Dr. Garland. Assessment/Plan PEG cancelled today, no consent >> pt with POLST for trial artificial feeding, will d/w primary - NPO @ [facility]. - hold heparin sq ST notes reviewed. cdiff positive >> PO Flagyl bowel regime H2 fu labs Subjective Subjective limited Objective Last 24 Hour Vital Signs Date Time Temp Pulse Resp B/P Pulse Ox O2 Delivery O2 Flow Rate FiO2 09/28/16 12:07 98.2 92 20 142/82 97 Nasal Cannula 2.0 09/28/16 10:47 84 138/100 09/28/16 10:30 99 Nasal Cannula 3.0 32 09/28/16 10:30 Nasal Cannula 3.0 32 09/28/16 08:45 97.6 95 20 149/88 97 Nasal Cannula 2.0 09/28/16 04:00 97.5 101 19 153/88 97 Nasal Cannula 2.0 09/28/16 00:41 97.3 89 18 140/66 91 Nasal Cannula 2.0 09/27/16 20:59 Nasal Cannula 3.0 32 09/27/16 20:58 98 Nasal Cannula 3.0 32 09/27/16 20:00 96.8 89 19 137/73 99 Room Air 09/27/16 18:01 96 148/97 09/27/16 16:00 97.2 96 20 148/97 98 Nasal Cannula 2.0 09/27/16 16:00 97.2 98 17 95/63 94 Room Air Intake and Output 09/27/16 09/28/16 19:00 07:00 Intake Total 350 ml 600 ml Output Total 100 ml 225 ml Balance 250 ml 375 ml IV Total 350 ml 600 ml Output Urine Total 100 ml 225 ml # Bowel Movements 1 1 Laboratory Tests Test 09/28/16 05:25 White Blood Count 8.3 K/UL (4.8-10.8) Red Blood Count 5.08 M/UL (4.20-5.40) Hemoglobin 16.2 G/DL (12.0-16.0) H Hematocrit 49.6 % (37.0-47.0) H Mean Corpuscular Volume 98 FL (80-99) Mean Corpuscular Hemoglobin 31.9 PG (27.0-31.0) H Mean Corpuscular Hemoglobin Concent 32.7 G/DL (32.0-36.0) Red Cell Distribution Width 13.5 % (11.6-14.8) Platelet Count 235 K/UL (150-450) Mean Platelet Volume 5.9 FL (6.5-10.1) L Neutrophils (%) (Auto) 70.1 % (45.0-75.0) Lymphocytes (%) (Auto) 14.4 % (20.0-45.0) L Monocytes (%) (Auto) 10.3 % (1.0-10.0) H Eosinophils (%) (Auto) 3.8 % (0.0-3.0) H Basophils (%) (Auto) 1.4 % (0.0-2.0) Prothrombin Time 14.0 SEC (9.30-11.50) H Prothromb Time International Ratio 1.4 (0.9-1.1) H Activated Partial Thromboplast Time 30 SEC (23-33) Sodium Level 141 mEQ/L (135-145) Potassium Level 3.9 mEQ/L (3.4-4.9) Chloride Level 100 mEQ/L (98-107) Carbon Dioxide Level 23 mEQ/L (20-30) Anion Gap 18 (5-15) H Blood Urea Nitrogen 5 mg/dL (7-23) L Creatinine 0.5 mg/dL (0.5-0.9) Estimat Glomerular Filtration Rate mL/min (>60) Glucose Level 90 mg/dL (74-106) Calcium Level 8.9 mg/dL (8.6-10.2) Height (Feet): 5 Height (Inches): 8.00 Weight (Pounds): 138 General Appearance: no apparent distress, alert Cardiovascular: normal rate Respiratory/Chest: normal breath sounds Abdominal Exam: normal bowel sounds, non tender, soft Objective poor PO intake IsaacCarine zapata N.P. Sep 28, 2016 13:15
[2016-09-28] MEDS ORDERED: Tubing IV Secondary IV ONE (14:02)
[2016-09-28] MEDS ORDERED: NS 275ml ONE (14:02)
[2016-09-28] MEDS: NS w/KCl 20mEq 1,000 ML IV SCH (14:33)
[2016-09-28 16:11] VITALS: BP 146/99
--- NOTE | 2016-09-28 18:30 | Cardiac Electrophysiology PN ---
Assessment/Plan Assessment/Plan 1. Atrial fibrillation with rapid ventricular response.Continue Metoprolol 50 bid.Off anticoagulation for AMS and age 89 and fall risk. 2. Hypertension.On Metoprolol 50 bid. 3. 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 S/P Sepsis 5. C diff on po Flagyl 6. Encephalopathy. DW RN Subjective Subjective Comfortable in NAD.On nonmonitored bed now. Objective Last 24 Hour Vital Signs Date Time Temp Pulse Resp B/P Pulse Ox O2 Delivery O2 Flow Rate FiO2 09/28/16 17:47 83 146/99 09/28/16 16:11 97.2 83 14 146/99 100 Nasal Cannula 1.0 09/28/16 12:07 98.2 92 20 142/82 97 Nasal Cannula 2.0 09/28/16 10:47 84 138/100 09/28/16 10:30 99 Nasal Cannula 3.0 32 09/28/16 10:30 Nasal Cannula 3.0 32 09/28/16 08:45 97.6 95 20 149/88 97 Nasal Cannula 2.0 09/28/16 04:00 97.5 101 19 153/88 97 Nasal Cannula 2.0 09/28/16 00:41 97.3 89 18 140/66 91 Nasal Cannula 2.0 09/27/16 20:59 Nasal Cannula 3.0 32 09/27/16 20:58 98 Nasal Cannula 3.0 32 09/27/16 20:00 96.8 89 19 137/73 99 Room Air Intake and Output 09/27/16 09/28/16 19:00 07:00 Intake Total 350 ml 600 ml Output Total 100 ml 225 ml Balance 250 ml 375 ml IV Total 350 ml 600 ml Output Urine Total 100 ml 225 ml # Bowel Movements 1 1 Laboratory Tests Test 09/28/16 05:25 White Blood Count 8.3 K/UL (4.8-10.8) Red Blood Count 5.08 M/UL (4.20-5.40) Hemoglobin 16.2 G/DL (12.0-16.0) H Hematocrit 49.6 % (37.0-47.0) H Mean Corpuscular Volume 98 FL (80-99) Mean Corpuscular Hemoglobin 31.9 PG (27.0-31.0) H Mean Corpuscular Hemoglobin Concent 32.7 G/DL (32.0-36.0) Red Cell Distribution Width 13.5 % (11.6-14.8) Platelet Count 235 K/UL (150-450) Mean Platelet Volume 5.9 FL (6.5-10.1) L Neutrophils (%) (Auto) 70.1 % (45.0-75.0) Lymphocytes (%) (Auto) 14.4 % (20.0-45.0) L Monocytes (%) (Auto) 10.3 % (1.0-10.0) H Eosinophils (%) (Auto) 3.8 % (0.0-3.0) H Basophils (%) (Auto) 1.4 % (0.0-2.0) Prothrombin Time 14.0 SEC (9.30-11.50) H Prothromb Time International Ratio 1.4 (0.9-1.1) H Activated Partial Thromboplast Time 30 SEC (23-33) Sodium Level 141 mEQ/L (135-145) Potassium Level 3.9 mEQ/L (3.4-4.9) Chloride Level 100 mEQ/L (98-107) Carbon Dioxide Level 23 mEQ/L (20-30) Anion Gap 18 (5-15) H Blood Urea Nitrogen 5 mg/dL (7-23) L Creatinine 0.5 mg/dL (0.5-0.9) Estimat Glomerular Filtration Rate mL/min (>60) Glucose Level 90 mg/dL (74-106) Calcium Level 8.9 mg/dL (8.6-10.2) Objective HEAD AND NECK: Showed no JVD. LUNGS: Coarse rhonchi. CARDIOVASCULAR: Irregular S1 and S2 with no gallop or murmur. ABDOMEN: Soft and nontender. EXTREMITIES: 1 plus edema. KAISER RODRIGUEZ Sep 28, 2016 18:30
--- NOTE | 2016-09-28 18:34 | Pulmonology Progress Note ---
Assessment/Plan Problems: (1) Acute encephalopathy (2) Atrial fibrillation (3) Altered level of consciousness (4) Severe sepsis (5) Depression (6) Hypothyroidism (7) prison resident Assessment/Plan cdiff positive continue antibiotics heart rate controlled better Blood pressure better dc planning if ok with [facility]outs Subjective ROS Limited/Unobtainable: No Gastrointestinal/Abdominal: Reports: bloating, diarrhea, nausea Allergies: Coded Allergies: No Known Allergies (Unverified , 09/20/16) Objective Last 24 Hour Vital Signs Date Time Temp Pulse Resp B/P Pulse Ox O2 Delivery O2 Flow Rate FiO2 09/28/16 17:47 83 146/99 09/28/16 16:11 97.2 83 14 146/99 100 Nasal Cannula 1.0 09/28/16 12:07 98.2 92 20 142/82 97 Nasal Cannula 2.0 09/28/16 10:47 84 138/100 09/28/16 10:30 99 Nasal Cannula 3.0 32 09/28/16 10:30 Nasal Cannula 3.0 32 09/28/16 08:45 97.6 95 20 149/88 97 Nasal Cannula 2.0 09/28/16 04:00 97.5 101 19 153/88 97 Nasal Cannula 2.0 09/28/16 00:41 97.3 89 18 140/66 91 Nasal Cannula 2.0 09/27/16 20:59 Nasal Cannula 3.0 32 09/27/16 20:58 98 Nasal Cannula 3.0 32 09/27/16 20:00 96.8 89 19 137/73 99 Room Air Intake and Output 09/27/16 09/28/16 19:00 07:00 Intake Total 350 ml 600 ml Output Total 100 ml 225 ml Balance 250 ml 375 ml IV Total 350 ml 600 ml Output Urine Total 100 ml 225 ml # Bowel Movements 1 1 General Appearance: no acute distress HEENT: normocephalic, atraumatic, PERRL Respiratory/Chest: chest wall non-tender, lungs clear, normal breath sounds, no respiratory distress Breasts: no masses Cardiovascular: normal peripheral pulses, normal rate, regular rhythm Abdomen: normal bowel sounds, distended, guarding, tender, rebound tenderness Genitourinary: normal external genitalia Extremities: no cyanosis 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, no motor/sensory deficits Laboratory Tests 09/28/16 05:25: White Blood Count 8.3, Red Blood Count 5.08, Hemoglobin 16.2H, Hematocrit 49.6H , Mean Corpuscular Volume 98, Mean Corpuscular Hemoglobin 31.9H, Mean Corpuscular Hemoglobin Concent 32.7, Red Cell Distribution Width 13.5, Platelet Count 235, Mean Platelet Volume 5.9L, Neutrophils (%) (Auto) 70.1, Lymphocytes ( %) (Auto) 14.4L, Monocytes (%) (Auto) 10.3H, Eosinophils (%) (Auto) 3.8H, Basophils (%) (Auto) 1.4, Prothrombin Time 14.0H, Prothromb Time International Ratio 1.4H, Activated Partial Thromboplast Time 30, Sodium Level 141, Potassium Level 3.9, Chloride Level 100, Carbon Dioxide Level 23, Anion Gap 18H, Blood Urea Nitrogen 5L, Creatinine 0.5, Estimat Glomerular Filtration Rate , Glucose Level 90, Calcium Level 8.9 Current Medications Medications (Trade) Dose Ordered Sig/Gary Route PRN Reason Start Time Stop Time Status Last Admin Dose Admin Acetaminophen (Tylenol) 650 mg Q4H PRN ORAL FEVER 09/27/16 15:30 10/27/16 15:29 Cefoxitin Sodium 1 gm/Dextrose 50 ml @ 100 mls/hr ONCE IV 09/28/16 06:00 09/28/16 23:59 Dextrose (Dextrose 50%) STAT PRN IV Hypoglycemia 09/27/16 15:30 10/27/16 15:29 Famotidine (Pepcid I.v.) 20 mg Q12HR IVP 09/27/16 21:00 10/27/16 20:59 09/28/16 10:47 Lorazepam (Ativan 2mg/ml 1ml) 2 mg Q2H PRN IV For Anxiety 09/27/16 15:30 10/04/16 15:29 Metoprolol Tartrate (Lopressor) 50 mg BID ORAL 09/27/16 18:00 10/27/16 17:59 09/28/16 17:47 Metronidazole (Flagyl) 500 mg Q8HR ORAL 09/27/16 22:00 10/04/16 21:59 09/28/16 14:32 Morphine Sulfate (Morphine Sulfate) 4 mg Q4H PRN IVP Severe Pain (Pain Scale 7-10) 09/27/16 15:30 10/04/16 15:29 Ondansetron HCl (Zofran) 4 mg Q6H PRN IVP Nausea & Vomiting 09/27/16 15:00 10/27/16 14:59 Polyethylene Glycol (Miralax) 17 gm DAILYPRN PRN ORAL Constipation 09/27/16 15:30 10/27/16 15:29 Potassium Chloride (KCl 10% 20 mEq oral solution) 20 meq BID ORAL 09/27/16 18:00 10/27/16 17:59 09/28/16 17:48 Sodium Chloride (NS w/KCl 20mEq) 1,000 ml @ 50 mls/hr Q20H IV 09/27/16 16:30 10/27/16 16:29 09/28/16 14:33 LEONORA XIAO Sep 28, 2016 18:34
--- NOTE | 2016-09-28 18:39 | Internal Med Progress Note ---
Subjective Date of Service: Sep 28, 2016 Physician Name Rodrigo Milner Attending Physician Timo Watkins MD Current Medications Medications (Trade) Dose Ordered Sig/Gary Route PRN Reason Start Time Stop Time Status Last Admin Dose Admin Acetaminophen (Tylenol) 650 mg Q4H PRN ORAL FEVER 09/27/16 15:30 10/27/16 15:29 Cefoxitin Sodium 1 gm/Dextrose 50 ml @ 100 mls/hr ONCE IV 09/28/16 06:00 09/28/16 23:59 Dextrose (Dextrose 50%) STAT PRN IV Hypoglycemia 09/27/16 15:30 10/27/16 15:29 Famotidine (Pepcid I.v.) 20 mg Q12HR IVP 09/27/16 21:00 10/27/16 20:59 09/28/16 10:47 Lorazepam (Ativan 2mg/ml 1ml) 2 mg Q2H PRN IV For Anxiety 09/27/16 15:30 10/04/16 15:29 Metoprolol Tartrate (Lopressor) 50 mg BID ORAL 09/27/16 18:00 10/27/16 17:59 09/28/16 17:47 Metronidazole (Flagyl) 500 mg Q8HR ORAL 09/27/16 22:00 10/04/16 21:59 09/28/16 14:32 Morphine Sulfate (Morphine Sulfate) 4 mg Q4H PRN IVP Severe Pain (Pain Scale 7-10) 09/27/16 15:30 10/04/16 15:29 Ondansetron HCl (Zofran) 4 mg Q6H PRN IVP Nausea & Vomiting 09/27/16 15:00 10/27/16 14:59 Polyethylene Glycol (Miralax) 17 gm DAILYPRN PRN ORAL Constipation 09/27/16 15:30 10/27/16 15:29 Potassium Chloride (KCl 10% 20 mEq oral solution) 20 meq BID ORAL 09/27/16 18:00 10/27/16 17:59 09/28/16 17:48 Sodium Chloride (NS w/KCl 20mEq) 1,000 ml @ 50 mls/hr Q20H IV 09/27/16 16:30 10/27/16 16:29 09/28/16 14:33 Allergies: Coded Allergies: No Known Allergies (Unverified , 09/20/16) Subjective Cover for Int Med-Dr Watkins. Still confused. Failed video swallow; await PEG eval. Objective Last Vital Signs Date Time Temp Pulse Resp B/P Pulse Ox O2 Delivery O2 Flow Rate FiO2 09/28/16 17:47 83 146/99 09/28/16 16:11 97.2 14 100 Nasal Cannula 1.0 09/28/16 10:30 32 Laboratory Tests Test 09/28/16 05:25 White Blood Count 8.3 K/UL (4.8-10.8) Red Blood Count 5.08 M/UL (4.20-5.40) Hemoglobin 16.2 G/DL (12.0-16.0) H Hematocrit 49.6 % (37.0-47.0) H Mean Corpuscular Volume 98 FL (80-99) Mean Corpuscular Hemoglobin 31.9 PG (27.0-31.0) H Mean Corpuscular Hemoglobin Concent 32.7 G/DL (32.0-36.0) Red Cell Distribution Width 13.5 % (11.6-14.8) Platelet Count 235 K/UL (150-450) Mean Platelet Volume 5.9 FL (6.5-10.1) L Neutrophils (%) (Auto) 70.1 % (45.0-75.0) Lymphocytes (%) (Auto) 14.4 % (20.0-45.0) L Monocytes (%) (Auto) 10.3 % (1.0-10.0) H Eosinophils (%) (Auto) 3.8 % (0.0-3.0) H Basophils (%) (Auto) 1.4 % (0.0-2.0) Prothrombin Time 14.0 SEC (9.30-11.50) H Prothromb Time International Ratio 1.4 (0.9-1.1) H Activated Partial Thromboplast Time 30 SEC (23-33) Sodium Level 141 mEQ/L (135-145) Potassium Level 3.9 mEQ/L (3.4-4.9) Chloride Level 100 mEQ/L (98-107) Carbon Dioxide Level 23 mEQ/L (20-30) Anion Gap 18 (5-15) H Blood Urea Nitrogen 5 mg/dL (7-23) L Creatinine 0.5 mg/dL (0.5-0.9) Estimat Glomerular Filtration Rate mL/min (>60) Glucose Level 90 mg/dL (74-106) Calcium Level 8.9 mg/dL (8.6-10.2) Intake and Output 09/27/16 09/28/16 19:00 07:00 Intake Total 350 ml 600 ml Output Total 100 ml 225 ml Balance 250 ml 375 ml IV Total 350 ml 600 ml Output Urine Total 100 ml 225 ml # Bowel Movements 1 1 Objective General Appearance: WD/WN, no apparent distress, alert EENT: PERRL/EOMI, normal ENT inspection Neck: non-tender, normal alignment, supple, normal inspection Cardiovascular: normal peripheral pulses, normal rate, no gallop/murmur, no JVD , irregularly irregular Respiratory/Chest: chest wall non-tender, lungs clear, normal breath sounds, no respiratory distress, no accessory muscle use Abdomen: normal bowel sounds, non tender, soft, no organomegaly, no mass Extremities: normal range of motion 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 (2) UTI (urinary tract infection) Assessment & Plan: kKebsiella pneumoniae. D/C cefepime per ID (3) Sepsis (4) HTN (hypertension) Assessment & Plan: Cont metoprolol (5) CHF (congestive heart failure) Assessment & Plan: See cardiology note. Await echocardiogram (6) Alzheimer's dementia (7) Hypokalemia Assessment & Plan: Add potassium to IV fluids. Replace potassium PO (8) Dysphagia Assessment & Plan: Failed video swallow; Await GI consul for PEG eval. (9) Atrial fibrillation Assessment & Plan: See cardiology note. Continue metoprolol (10) Hypothyroidism (11) Depression (12) Klebsiella pneumoniae Assessment & Plan: See UTI above. (13) Leukocytosis Assessment & Plan: Resolving. (14) Aortic stenosis, severe Assessment & Plan: See cardiology note. (15) C. difficile diarrhea Assessment & Plan: Cont oral flagyl per ID RODRIGO MILNER Sep 28, 2016 18:39
--- NOTE | 2016-09-28 18:44 | Internal Med Progress Note ---
Subjective Date of Service: Sep 28, 2016 Physician Name Rodrigo Milner Attending Physician Timo Watkins MD Current Medications Medications (Trade) Dose Ordered Sig/Gary Route PRN Reason Start Time Stop Time Status Last Admin Dose Admin Acetaminophen (Tylenol) 650 mg Q4H PRN ORAL FEVER 09/27/16 15:30 10/27/16 15:29 Cefoxitin Sodium 1 gm/Dextrose 50 ml @ 100 mls/hr ONCE IV 09/28/16 06:00 09/28/16 23:59 Dextrose (Dextrose 50%) STAT PRN IV Hypoglycemia 09/27/16 15:30 10/27/16 15:29 Famotidine (Pepcid I.v.) 20 mg Q12HR IVP 09/27/16 21:00 10/27/16 20:59 09/28/16 10:47 Lorazepam (Ativan 2mg/ml 1ml) 2 mg Q2H PRN IV For Anxiety 09/27/16 15:30 10/04/16 15:29 Metoprolol Tartrate (Lopressor) 50 mg BID ORAL 09/27/16 18:00 10/27/16 17:59 09/28/16 17:47 Metronidazole (Flagyl) 500 mg Q8HR ORAL 09/27/16 22:00 10/04/16 21:59 09/28/16 14:32 Morphine Sulfate (Morphine Sulfate) 4 mg Q4H PRN IVP Severe Pain (Pain Scale 7-10) 09/27/16 15:30 10/04/16 15:29 Ondansetron HCl (Zofran) 4 mg Q6H PRN IVP Nausea & Vomiting 09/27/16 15:00 10/27/16 14:59 Polyethylene Glycol (Miralax) 17 gm DAILYPRN PRN ORAL Constipation 09/27/16 15:30 10/27/16 15:29 Potassium Chloride (KCl 10% 20 mEq oral solution) 20 meq BID ORAL 09/27/16 18:00 10/27/16 17:59 09/28/16 17:48 Sodium Chloride (NS w/KCl 20mEq) 1,000 ml @ 50 mls/hr Q20H IV 09/27/16 16:30 10/27/16 16:29 09/28/16 14:33 Allergies: Coded Allergies: No Known Allergies (Unverified , 09/20/16) ROS Limited/Unobtainable: Yes Subjective Cover for Int Med-Dr Watkins. Still confused. Failed video swallow; PEG cancelled for today-See GI note. Objective Last Vital Signs Date Time Temp Pulse Resp B/P Pulse Ox O2 Delivery O2 Flow Rate FiO2 09/28/16 17:47 83 146/99 09/28/16 16:11 97.2 14 100 Nasal Cannula 1.0 09/28/16 10:30 32 Laboratory Tests Test 09/28/16 05:25 White Blood Count 8.3 K/UL (4.8-10.8) Red Blood Count 5.08 M/UL (4.20-5.40) Hemoglobin 16.2 G/DL (12.0-16.0) H Hematocrit 49.6 % (37.0-47.0) H Mean Corpuscular Volume 98 FL (80-99) Mean Corpuscular Hemoglobin 31.9 PG (27.0-31.0) H Mean Corpuscular Hemoglobin Concent 32.7 G/DL (32.0-36.0) Red Cell Distribution Width 13.5 % (11.6-14.8) Platelet Count 235 K/UL (150-450) Mean Platelet Volume 5.9 FL (6.5-10.1) L Neutrophils (%) (Auto) 70.1 % (45.0-75.0) Lymphocytes (%) (Auto) 14.4 % (20.0-45.0) L Monocytes (%) (Auto) 10.3 % (1.0-10.0) H Eosinophils (%) (Auto) 3.8 % (0.0-3.0) H Basophils (%) (Auto) 1.4 % (0.0-2.0) Prothrombin Time 14.0 SEC (9.30-11.50) H Prothromb Time International Ratio 1.4 (0.9-1.1) H Activated Partial Thromboplast Time 30 SEC (23-33) Sodium Level 141 mEQ/L (135-145) Potassium Level 3.9 mEQ/L (3.4-4.9) Chloride Level 100 mEQ/L (98-107) Carbon Dioxide Level 23 mEQ/L (20-30) Anion Gap 18 (5-15) H Blood Urea Nitrogen 5 mg/dL (7-23) L Creatinine 0.5 mg/dL (0.5-0.9) Estimat Glomerular Filtration Rate mL/min (>60) Glucose Level 90 mg/dL (74-106) Calcium Level 8.9 mg/dL (8.6-10.2) Intake and Output 09/27/16 09/28/16 19:00 07:00 Intake Total 350 ml 600 ml Output Total 100 ml 225 ml Balance 250 ml 375 ml IV Total 350 ml 600 ml Output Urine Total 100 ml 225 ml # Bowel Movements 1 1 Objective General Appearance: WD/WN, no apparent distress, alert EENT: PERRL/EOMI, normal ENT inspection Neck: non-tender, normal alignment, supple, normal inspection Cardiovascular: normal peripheral pulses, normal rate, no gallop/murmur, no JVD , irregularly irregular Respiratory/Chest: chest wall non-tender, lungs clear, normal breath sounds, no respiratory distress, no accessory muscle use Abdomen: normal bowel sounds, non tender, soft, no organomegaly, no mass Extremities: normal range of motion 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 (2) UTI (urinary tract infection) Assessment & Plan: kKebsiella pneumoniae. Cont cefoxitin per ID (3) Sepsis (4) HTN (hypertension) Assessment & Plan: Cont metoprolol (5) CHF (congestive heart failure) Assessment & Plan: See cardiology note. Await echocardiogram (6) Alzheimer's dementia (7) Hypokalemia Assessment & Plan: Replace potassium PO (8) Dysphagia Assessment & Plan: Failed video swallow; PEG placement for today cancelled-see GI note. (9) Atrial fibrillation Assessment & Plan: See cardiology note. Continue metoprolol (10) Hypothyroidism (11) Depression (12) Klebsiella pneumoniae Assessment & Plan: See UTI above. (13) Leukocytosis Assessment & Plan: Resolving. (14) Aortic stenosis, severe Assessment & Plan: See cardiology note. (15) C. difficile diarrhea Assessment & Plan: Cont oral flagyl per ID Status: not improved Assessment/Plan Reschedule PEG per GI. Plan to D/C to fdc fac when PEG placed. RODRIGO MILNER Sep 28, 2016 18:44
--- NOTE | 2016-09-28 19:50 | Infectious Diseases Prog Note ---
Assessment/Plan Assessment/Plan A: The patient is an 89-year-old, K.pneumoniae UTI , SP Rx C.difficile diarrhea Sepsis SP ALOC improving leukocytosis SP Fever SP no evidence of Pna Cxray : NAPD AFib with rapid ventricular response History of AFib Hypothyroidism Dementia. Osteoarthritis Anxiety Dysphagia Failure to thrive NKDA Full Code PLAN: cont flagyl d# 4 / 10 ( 09/26 SP DC cefepime d# 5 ) ( 09/22 SP IV Vanco d# 2 ) Monitor blood culture. Monitor urine culture. Monitor CBC Monitor BNP Subjective Constitutional: Denies: anorexia, chills, drenching sweats, fatigue, fever, no symptoms, other Allergies: Coded Allergies: No Known Allergies (Unverified , 09/20/16) Subjective comfortable Objective Vital Signs Last 24 Hour Vital Signs Date Time Temp Pulse Resp B/P Pulse Ox O2 Delivery O2 Flow Rate FiO2 09/28/16 17:47 83 146/99 09/28/16 16:11 97.2 83 14 146/99 100 Nasal Cannula 1.0 09/28/16 12:07 98.2 92 20 142/82 97 Nasal Cannula 2.0 09/28/16 10:47 84 138/100 09/28/16 10:30 99 Nasal Cannula 3.0 32 09/28/16 10:30 Nasal Cannula 3.0 32 09/28/16 08:45 97.6 95 20 149/88 97 Nasal Cannula 2.0 09/28/16 04:00 97.5 101 19 153/88 97 Nasal Cannula 2.0 09/28/16 00:41 97.3 89 18 140/66 91 Nasal Cannula 2.0 09/27/16 20:59 Nasal Cannula 3.0 32 09/27/16 20:58 98 Nasal Cannula 3.0 32 09/27/16 20:00 96.8 89 19 137/73 99 Room Air Height (Feet): 5 Height (Inches): 8.00 Weight (Pounds): 138 HEENT: atraumatic Respiratory/Chest: lungs clear Cardiovascular: normal rate Abdomen: soft, non tender Laboratory Tests Test 09/28/16 05:25 White Blood Count 8.3 K/UL (4.8-10.8) Red Blood Count 5.08 M/UL (4.20-5.40) Hemoglobin 16.2 G/DL (12.0-16.0) H Hematocrit 49.6 % (37.0-47.0) H Mean Corpuscular Volume 98 FL (80-99) Mean Corpuscular Hemoglobin 31.9 PG (27.0-31.0) H Mean Corpuscular Hemoglobin Concent 32.7 G/DL (32.0-36.0) Red Cell Distribution Width 13.5 % (11.6-14.8) Platelet Count 235 K/UL (150-450) Mean Platelet Volume 5.9 FL (6.5-10.1) L Neutrophils (%) (Auto) 70.1 % (45.0-75.0) Lymphocytes (%) (Auto) 14.4 % (20.0-45.0) L Monocytes (%) (Auto) 10.3 % (1.0-10.0) H Eosinophils (%) (Auto) 3.8 % (0.0-3.0) H Basophils (%) (Auto) 1.4 % (0.0-2.0) Prothrombin Time 14.0 SEC (9.30-11.50) H Prothromb Time International Ratio 1.4 (0.9-1.1) H Activated Partial Thromboplast Time 30 SEC (23-33) Sodium Level 141 mEQ/L (135-145) Potassium Level 3.9 mEQ/L (3.4-4.9) Chloride Level 100 mEQ/L (98-107) Carbon Dioxide Level 23 mEQ/L (20-30) Anion Gap 18 (5-15) H Blood Urea Nitrogen 5 mg/dL (7-23) L Creatinine 0.5 mg/dL (0.5-0.9) Estimat Glomerular Filtration Rate mL/min (>60) Glucose Level 90 mg/dL (74-106) Calcium Level 8.9 mg/dL (8.6-10.2) Current Medications Medications (Trade) Dose Ordered Sig/Gary Route PRN Reason Start Time Stop Time Status Last Admin Dose Admin Acetaminophen (Tylenol) 650 mg Q4H PRN ORAL FEVER 09/27/16 15:30 10/27/16 15:29 Cefoxitin Sodium 1 gm/Dextrose 50 ml @ 100 mls/hr ONCE IV 09/28/16 06:00 09/28/16 23:59 Dextrose (Dextrose 50%) STAT PRN IV Hypoglycemia 1/4/17 15:30 10/27/16 15:29 Famotidine (Pepcid I.v.) 20 mg Q12HR IVP 09/27/16 21:00 10/27/16 20:59 09/28/16 10:47 Lorazepam (Ativan 2mg/ml 1ml) 2 mg Q2H PRN IV For Anxiety 09/27/16 15:30 10/04/16 15:29 Metoprolol Tartrate (Lopressor) 50 mg BID ORAL 09/27/16 18:00 10/27/16 17:59 09/28/16 17:47 Metronidazole (Flagyl) 500 mg Q8HR ORAL 09/27/16 22:00 10/04/16 21:59 09/28/16 14:32 Morphine Sulfate (Morphine Sulfate) 4 mg Q4H PRN IVP Severe Pain (Pain Scale 7-10) 09/27/16 15:30 10/04/16 15:29 Ondansetron HCl (Zofran) 4 mg Q6H PRN IVP Nausea & Vomiting 09/27/16 15:00 10/27/16 14:59 Polyethylene Glycol (Miralax) 17 gm DAILYPRN PRN ORAL Constipation 09/27/16 15:30 10/27/16 15:29 Potassium Chloride (KCl 10% 20 mEq oral solution) 20 meq BID ORAL 09/27/16 18:00 10/27/16 17:59 09/28/16 17:48 Sodium Chloride (NS w/KCl 20mEq) 1,000 ml @ 50 mls/hr Q20H IV 09/27/16 16:30 10/27/16 16:29 09/28/16 14:33 AJMIL TOWNSEND M.D. Sep 28, 2016 19:50
[2016-09-28 20:00] VITALS: BP 147/112
[2016-09-28] MEDS: Morphine Sulfate 4mg/ml Inj IVP PRN (20:40)
[2016-09-29] VITALS (10 sets, daily range): BP systolic 129–171; BP diastolic 80–106
[2016-09-29] MEDS: metroNIDAZOLE 500mg tab ORAL SCH ×3 (05:49→21:19)
[2016-09-29 06:42] LABS: INR 1.3 (0.9-1.1); PROTHROMBIN TIME 13.4 SEC (9.30-11.50)
[2016-09-29 06:45] LABS: BASOPHILS % (AUTO) 1.4 % (0.0-2.0); EOSINOPHILS % (AUTO) 4.2 % (0.0-3.0); LYMPHOCYTES % (AUTO) 13.4 % (20.0-45.0); MEAN CORPUSCULAR HGB CONC 31.2 G/DL (32.0-36.0); MEAN CORPUSCULAR VOLUME 99 FL (80-99); MEAN PLATELET VOLUME 6.5 FL (6.5-10.1); MONOCYTES % (AUTO) 8.1 % (1.0-10.0); NEUTROPHILS % (AUTO) 72.9 % (45.0-75.0); PLATELET COUNT 227 K/UL (150-450); RED BLOOD COUNT 4.86 M/UL (4.20-5.40); RED CELL DISTRIBUTION WIDTH 13.4 % (11.6-14.8); WHITE BLOOD COUNT 8.4 K/UL (4.8-10.8)
[2016-09-29 06:52] LABS: ANION GAP 18 (5-15); CALCIUM 8.8 mg/dL (8.6-10.2); CARBON DIOXIDE 23 mEQ/L (20-30); CHLORIDE 103 mEQ/L (98-107); CREATININE 0.5 mg/dL (0.5-0.9); HEMOLYSIS 7; POTASSIUM 4.3 mEQ/L (3.4-4.9); SODIUM 144 mEQ/L (135-145)
[2016-09-29] MEDS ORDERED: Propofol 10mg/ml 20ml IV ONE (08:00)
[2016-09-29] MEDS ORDERED: cefOXitin 1gm Inj ONE (08:04)
--- NOTE | 2016-09-29 08:12 | Pre-Procedure Note/Attestation ---
Pre-Procedure Note/Attestation Complete Prior to Procedure Planned Procedure: not applicable Procedure Narrative: egd/peg Indications for Procedure Pre-Operative Diagnosis: dysphagia Attestation I attest that I discussed the nature of the procedure; its benefits; risks and complications; and alternatives (and the risks and benefits of such alternatives ), prior to the procedure, with the patient (or the patient's legal food service representative). I attest that, if there was a reasonable possibility of needing a blood transfusion, the patient (or the patient's legal food service representative) was given the [facility] standardized written summary, pursuant to the Abel Francisco J Blood Safety Act ([place] Health and Safety Code # 1645, as amended). I attest that I re-evaluated the patient just prior to the surgery and that there has been no change in the patient's H&P, except as documented below: DUDLEY SALGADO Sep 29, 2016 08:12
[2016-09-29] MEDS ORDERED: NS 550ML IV ONE (08:14)
--- NOTE | 2016-09-29 08:16 | GI Progress Note ---
Assessment/Plan Problems: (1) Altered mental status ICD Codes: R41.82 - Altered mental status, unspecified SNOMED: 474444196 (2) HTN (hypertension) ICD Codes: I10 - Essential (primary) hypertension SNOMED: 35507432 (3) Alzheimer's dementia ICD Codes: G30.9 - Alzheimer's disease, unspecified SNOMED: 74618250 (4) Dysphagia ICD Codes: R13.10 - Dysphagia, unspecified SNOMED: 90790472, 937309076 Assessment/Plan 89 y/o with dysphagia failed swallow eval there is a POST signed by the patient indicating that patient wanted enteral feeding if she needed it no family available to sign consent will proceed with peg given above post Subjective Gastrointestinal/Abdominal: Reports: no symptoms Objective Last 24 Hour Vital Signs Date Time Temp Pulse Resp B/P Pulse Ox O2 Delivery O2 Flow Rate FiO2 09/29/16 04:00 97.3 102 19 145/101 98 Simple Mask 2.0 09/29/16 00:00 97.2 95 18 155/96 99 Nasal Cannula 2.0 09/28/16 20:00 96.1 98 27 147/112 97 Nasal Cannula 2.0 09/28/16 19:00 Nasal Cannula 3.0 32 09/28/16 19:00 99 Nasal Cannula 3.0 32 09/28/16 17:47 83 146/99 09/28/16 16:11 97.2 83 14 146/99 100 Nasal Cannula 1.0 09/28/16 12:07 98.2 92 20 142/82 97 Nasal Cannula 2.0 09/28/16 10:47 84 138/100 09/28/16 10:30 99 Nasal Cannula 3.0 32 09/28/16 10:30 Nasal Cannula 3.0 32 09/28/16 08:45 97.6 95 20 149/88 97 Nasal Cannula 2.0 Intake and Output 09/28/16 09/29/16 19:00 07:00 Intake Total 600 ml 450 ml Output Total 800 ml 200 ml Balance -200 ml 250 ml Intake Oral 200 ml IV Total 400 ml 450 ml Output Urine Total 800 ml 200 ml # Bowel Movements 1 Laboratory Tests Test 09/29/16 05:20 White Blood Count 8.4 K/UL (4.8-10.8) Red Blood Count 4.86 M/UL (4.20-5.40) Hemoglobin 15.1 G/DL (12.0-16.0) Hematocrit 48.2 % (37.0-47.0) H Mean Corpuscular Volume 99 FL (80-99) Mean Corpuscular Hemoglobin 31.0 PG (27.0-31.0) Mean Corpuscular Hemoglobin Concent 31.2 G/DL (32.0-36.0) L Red Cell Distribution Width 13.4 % (11.6-14.8) Platelet Count 227 K/UL (150-450) Mean Platelet Volume 6.5 FL (6.5-10.1) Neutrophils (%) (Auto) 72.9 % (45.0-75.0) Lymphocytes (%) (Auto) 13.4 % (20.0-45.0) L Monocytes (%) (Auto) 8.1 % (1.0-10.0) Eosinophils (%) (Auto) 4.2 % (0.0-3.0) H Basophils (%) (Auto) 1.4 % (0.0-2.0) Prothrombin Time 13.4 SEC (9.30-11.50) H Prothromb Time International Ratio 1.3 (0.9-1.1) H Activated Partial Thromboplast Time 29 SEC (23-33) Sodium Level 144 mEQ/L (135-145) Potassium Level 4.3 mEQ/L (3.4-4.9) Chloride Level 103 mEQ/L (98-107) Carbon Dioxide Level 23 mEQ/L (20-30) Anion Gap 18 (5-15) H Blood Urea Nitrogen 5 mg/dL (7-23) L Creatinine 0.5 mg/dL (0.5-0.9) Estimat Glomerular Filtration Rate mL/min (>60) Glucose Level 95 mg/dL (74-106) Calcium Level 8.8 mg/dL (8.6-10.2) Height (Feet): 5 Height (Inches): 5.00 Weight (Pounds): 138 General Appearance: no apparent distress Cardiovascular: normal rate Respiratory/Chest: decreased breath sounds Abdominal Exam: normal bowel sounds, non tender, soft Extremities: non-tender DUDLEY SALGADO Sep 29, 2016 08:16
--- NOTE | 2016-09-29 08:34 | Endoscopy Procedure Note ---
Endoscopy Procedure Note Indication for Procedure: dysphagia Procedures Performed: EGD, PEG Operative Findings/Diagnosis: du Specimen: yes Pt Tolerated Procedure Well: Yes Estimated Blood Loss: none Anesthesiologist: florencia Anesthesia: MAC Implant(s) used?: No 50 yrs or older w/o bx or poly: Not Applicable 10yrs. F/U not recommended: Not Applicable DUDLEY SALGADO Sep 29, 2016 08:34
--- NOTE | 2016-09-29 08:34 | Anethesia Preoperative Eval ---
Anesthesia Pre-op PMH/ROS General Date of Evaluation: Sep 29, 2016 Time of Evaluation: 08:10 Anesthesiologist: florencia ASA Score: ASA 3 Mallampati Score Class I : Soft palate, uvula, fauces, pillars visible Class II: Soft palate, uvula, fauces visible Class III: Soft palate, base of uvula visible Class IV: Only hard plate visible Mallampati Classification: Class III Surgeon: sen Diagnosis: dysphagia Surgical Procedure: egd/PEG Anesthesia History: none Allergies: Coded Allergies: No Known Allergies (Unverified , 09/20/16) Past Medical History Cardiovascular: Reports: HTN, arrhythmia Neurologic/Psychiatric: Reports: dementia Endocrine: Reports: hypothyroidism Anesthesia Pre-op Phys. Exam Physician Exam Last Vital Signs Date Time Temp Pulse Resp B/P Pulse Ox O2 Delivery O2 Flow Rate FiO2 09/29/16 04:00 97.3 102 19 145/101 98 Simple Mask 2.0 09/28/16 19:00 32 Airway Exam Mallampati Score: Class III Teeth: missing Anesthesia Pre-op A/P Labs Hematology Test 09/29/16 05:20 White Blood Count 8.4 K/UL (4.8-10.8) Red Blood Count 4.86 M/UL (4.20-5.40) Hemoglobin 15.1 G/DL (12.0-16.0) Hematocrit 48.2 % (37.0-47.0) H Mean Corpuscular Volume 99 FL (80-99) Mean Corpuscular Hemoglobin 31.0 PG (27.0-31.0) Mean Corpuscular Hemoglobin Concent 31.2 G/DL (32.0-36.0) L Red Cell Distribution Width 13.4 % (11.6-14.8) Platelet Count 227 K/UL (150-450) Mean Platelet Volume 6.5 FL (6.5-10.1) Neutrophils (%) (Auto) 72.9 % (45.0-75.0) Lymphocytes (%) (Auto) 13.4 % (20.0-45.0) L Monocytes (%) (Auto) 8.1 % (1.0-10.0) Eosinophils (%) (Auto) 4.2 % (0.0-3.0) H Basophils (%) (Auto) 1.4 % (0.0-2.0) Coagulation Test 09/29/16 05:20 Prothrombin Time 13.4 SEC (9.30-11.50) H Prothromb Time International Ratio 1.3 (0.9-1.1) H Activated Partial Thromboplast Time 29 SEC (23-33) Chemistry Test 09/29/16 05:20 Sodium Level 144 mEQ/L (135-145) Potassium Level 4.3 mEQ/L (3.4-4.9) Chloride Level 103 mEQ/L (98-107) Carbon Dioxide Level 23 mEQ/L (20-30) Anion Gap 18 (5-15) H Blood Urea Nitrogen 5 mg/dL (7-23) L Creatinine 0.5 mg/dL (0.5-0.9) Estimat Glomerular Filtration Rate mL/min (>60) Glucose Level 95 mg/dL (74-106) Calcium Level 8.8 mg/dL (8.6-10.2) Risk Assessment & Plan Plan: propofol Status Change Before Surgery: No Pre-Antibiotics Drug: cefoxitin Given Within 1 Hr of Incision: Yes Time Given: 08:13 Regis Gloria MD Sep 29, 2016 08:34
--- NOTE | 2016-09-29 08:35 | Immediate Post-Op Evaluation ---
Immediate Post-Op Evalulation Immediate Post-Op Evalulation Date of Evaluation: Sep 29, 2016 Time of Evaluation: 08:55 IV Fluids: 200 Blood Pressure Systolic: 179 Blood Pressure Diastolic: 86 Pulse Rate: 101 Respiratory Rate: 27 O2 Sat by Pulse Oximetry: 100 Temperature (Fahrenheit): 96.9 Pain Score (1-10): 0 Nausea: No Vomiting: No Complications none Patient Status: awake, patent, none Hydration Status: adequate Drug: cefoxitin Given Within 1 Hr of Incision: Yes Time Given: 08:13 Regis Gloria MD Sep 29, 2016 08:35
--- NOTE | 2016-09-29 08:35 | 48 Hour Post Anesthesia Eval ---
Post Anesthesia Evaluation Date of Evaluation: Sep 29, 2016 Time of Evaluation: 09:35 Blood Pressure Systolic: 178 0: 90 Pulse Rate: 101 Respiratory Rate: 27 Temperature (Fahrenheit): 96.9 O2 Sat by Pulse Oximetry: 100 Airway: patent Nausea: No Vomiting: No Pain Intensity: 0 Hydration Status: adequate Cardiopulmonary Status: stable Mental Status/LOC: patient returned to baseline Follow-up Care/Observations: n/a Post-Anesthesia Complications: tolerated well Follow-up care needed: N/A Regis Gloria MD Sep 29, 2016 08:35
[2016-09-29] MEDS ORDERED: Pantoprazole 40mg pkt NG SCH (09:00)
[2016-09-29] MEDS: Famotidine 20 MG/ 2ML VIAL IVP SCH (09:00)
--- NOTE | 2016-09-29 09:23 | Pulmonology Progress Note ---
Assessment/Plan Assessment/Plan ASSESSMENT sepsis C dif colitis acute encephalopathy UTI/Klebsiella PNA, s/p Rx A fib with RVR hypothyroidism depression dysphagia PLAN OF CARE gentle IVF O2 HHN prn CXR negative s/p Rx for UTI stool + C dif, on Flagyl blood cx negative HR controlled with BB , cardio follows no anticoagulation, considering advanced age and AMS acute encephalopathy likely 2 to sepsis, improving to baseline s/p PEG strict aspiration precautions, GT feeding - start as per GI, monitor tolerance abd binder , GT site care Venous Duplex BLE negative GI prophylaxis TSH WNL, continue current dose of Levothyroxine' case discussed and evaluated by supervising physician Subjective Allergies: Coded Allergies: No Known Allergies (Unverified , 09/20/16) Subjective afebrile, no leucocytosis no signs fo respiratory distress HR controlled awake, poorly but responsive Objective Last 24 Hour Vital Signs Date Time Temp Pulse Resp B/P Pulse Ox O2 Delivery O2 Flow Rate FiO2 09/29/16 09:06 118 20 170/90 100 Nasal Cannula 2.0 09/29/16 09:00 114 20 168/80 100 Nasal Cannula 2.0 09/29/16 08:53 113 20 170/99 100 Nasal Cannula 2.0 09/29/16 08:48 97.0 114 20 171/88 100 Nasal Cannula 2.0 09/29/16 04:00 97.3 102 19 145/101 98 Simple Mask 2.0 09/29/16 00:00 97.2 95 18 155/96 99 Nasal Cannula 2.0 09/28/16 20:00 96.1 98 27 147/112 97 Nasal Cannula 2.0 09/28/16 19:00 Nasal Cannula 3.0 32 09/28/16 19:00 99 Nasal Cannula 3.0 32 09/28/16 17:47 83 146/99 09/28/16 16:11 97.2 83 14 146/99 100 Nasal Cannula 1.0 09/28/16 12:07 98.2 92 20 142/82 97 Nasal Cannula 2.0 09/28/16 10:47 84 138/100 09/28/16 10:30 99 Nasal Cannula 3.0 32 09/28/16 10:30 Nasal Cannula 3.0 32 Intake and Output 09/28/16 09/29/16 19:00 07:00 Intake Total 600 ml 450 ml Output Total 800 ml 200 ml Balance -200 ml 250 ml Intake Oral 200 ml IV Total 400 ml 450 ml Output Urine Total 800 ml 200 ml # Bowel Movements 1 General Appearance: other - bedridden, elderly, frail female in NAD HEENT: normocephalic, atraumatic, anicteric Respiratory/Chest: lungs clear, no respiratory distress, no accessory muscle use Cardiovascular: normal peripheral pulses, no JVD, irregularly irregular - rate controlled Abdomen: normal bowel sounds, soft, non tender, other - G tube, abd binder Extremities: no edema, pedal pulses normal Neurologic/Psychiatric: abnormal gait - bedridden, alert, responsive - poorly but responsive Musculoskeletal: atrophy - BLE Laboratory Tests 09/29/16 05:20: White Blood Count 8.4, Red Blood Count 4.86, Hemoglobin 15.1, Hematocrit 48.2H, Mean Corpuscular Volume 99, Mean Corpuscular Hemoglobin 31.0, Mean Corpuscular Hemoglobin Concent 31.2L, Red Cell Distribution Width 13.4, Platelet Count 227, Mean Platelet Volume 6.5, Neutrophils (%) (Auto) 72.9, Lymphocytes (%) (Auto) 13.4L, Monocytes (%) (Auto) 8.1, Eosinophils (%) (Auto) 4.2H, Basophils (%) ( Auto) 1.4, Prothrombin Time 13.4H, Prothromb Time International Ratio 1.3H, Activated Partial Thromboplast Time 29, Sodium Level 144, Potassium Level 4.3, Chloride Level 103, Carbon Dioxide Level 23, Anion Gap 18H, Blood Urea Nitrogen 5L, Creatinine 0.5, Estimat Glomerular Filtration Rate , Glucose Level 95, Calcium Level 8.8 Current Medications Medications (Trade) Dose Ordered Sig/Gary Route PRN Reason Start Time Stop Time Status Last Admin Dose Admin Acetaminophen (Tylenol) 650 mg Q4H PRN ORAL FEVER 09/27/16 15:30 10/27/16 15:29 Dextrose (Dextrose 50%) STAT PRN IV Hypoglycemia 09/27/16 15:30 10/27/16 15:29 Famotidine (Pepcid I.v.) 20 mg Q12HR IVP 09/27/16 21:00 10/27/16 20:59 09/28/16 21:25 Lorazepam (Ativan 2mg/ml 1ml) 2 mg Q2H PRN IV For Anxiety 09/27/16 15:30 10/04/16 15:29 Metoprolol Tartrate (Lopressor) 50 mg BID ORAL 09/27/16 18:00 10/27/16 17:59 09/28/16 17:47 Metronidazole (Flagyl) 500 mg Q8HR ORAL 09/27/16 22:00 10/04/16 21:59 09/28/16 21:25 Morphine Sulfate (Morphine Sulfate) 4 mg Q4H PRN IVP Severe Pain (Pain Scale 7-10) 09/27/16 15:30 10/04/16 15:29 09/28/16 20:40 Ondansetron HCl (Zofran) 4 mg Q6H PRN IVP Nausea & Vomiting 09/27/16 15:00 10/27/16 14:59 Pantoprazole 40 mg 40 mg DAILY NG 09/29/16 09:00 10/29/16 08:59 Polyethylene Glycol (Miralax) 17 gm DAILYPRN PRN ORAL Constipation 09/27/16 15:30 10/27/16 15:29 Potassium Chloride (KCl 10% 20 mEq oral solution) 20 meq BID ORAL 09/27/16 18:00 10/27/16 17:59 09/28/16 17:48 Sodium Chloride (NS w/KCl 20mEq) 1,000 ml @ 50 mls/hr Q20H IV 09/27/16 16:30 10/27/16 16:29 09/28/16 14:33 Sodium Chloride (Sodium Chloride 1000ml bag) 1,000 ml @ 10 mls/hr Q24H IVLG 09/29/16 08:35 09/29/16 10:34 Hair AntonioIrena alcantar NP Sep 29, 2016 09:23
--- NOTE | 2016-09-29 09:54 | Cardiac Electrophysiology PN ---
Assessment/Plan Assessment/Plan 1. Atrial fibrillation with rapid ventricular response.Continue Metoprolol 50 bid.Off anticoagulation for AMS and age 89 and fall risk. 2. Hypertension.On Metoprolol 50 bid. 3. 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 S/P Sepsis 5. C Diff on po Flagyl 6. Encephalopathy. 7. Dysphagia. S/P EGD/PEG today by Dr. Garland with no cardiac issues NAV RN and Dr Garland Subjective Subjective Had EGD/PEG placement by Dr Garland today. Objective Last 24 Hour Vital Signs Date Time Temp Pulse Resp B/P Pulse Ox O2 Delivery O2 Flow Rate FiO2 09/29/16 09:32 101 27 100 09/29/16 09:06 118 20 170/90 100 Nasal Cannula 2.0 09/29/16 09:00 114 20 168/80 100 Nasal Cannula 2.0 09/29/16 08:53 113 20 170/99 100 Nasal Cannula 2.0 09/29/16 08:48 97.0 114 20 171/88 100 Nasal Cannula 2.0 09/29/16 04:00 97.3 102 19 145/101 98 Simple Mask 2.0 09/29/16 00:00 97.2 95 18 155/96 99 Nasal Cannula 2.0 09/28/16 20:00 96.1 98 27 147/112 97 Nasal Cannula 2.0 09/28/16 19:00 Nasal Cannula 3.0 32 09/28/16 19:00 99 Nasal Cannula 3.0 32 09/28/16 17:47 83 146/99 09/28/16 16:11 97.2 83 14 146/99 100 Nasal Cannula 1.0 09/28/16 12:07 98.2 92 20 142/82 97 Nasal Cannula 2.0 09/28/16 10:47 84 138/100 09/28/16 10:30 99 Nasal Cannula 3.0 32 09/28/16 10:30 Nasal Cannula 3.0 32 Intake and Output 09/28/16 09/29/16 19:00 07:00 Intake Total 600 ml 450 ml Output Total 800 ml 200 ml Balance -200 ml 250 ml Intake Oral 200 ml IV Total 400 ml 450 ml Output Urine Total 800 ml 200 ml # Bowel Movements 1 Laboratory Tests Test 09/29/16 05:20 White Blood Count 8.4 K/UL (4.8-10.8) Red Blood Count 4.86 M/UL (4.20-5.40) Hemoglobin 15.1 G/DL (12.0-16.0) Hematocrit 48.2 % (37.0-47.0) H Mean Corpuscular Volume 99 FL (80-99) Mean Corpuscular Hemoglobin 31.0 PG (27.0-31.0) Mean Corpuscular Hemoglobin Concent 31.2 G/DL (32.0-36.0) L Red Cell Distribution Width 13.4 % (11.6-14.8) Platelet Count 227 K/UL (150-450) Mean Platelet Volume 6.5 FL (6.5-10.1) Neutrophils (%) (Auto) 72.9 % (45.0-75.0) Lymphocytes (%) (Auto) 13.4 % (20.0-45.0) L Monocytes (%) (Auto) 8.1 % (1.0-10.0) Eosinophils (%) (Auto) 4.2 % (0.0-3.0) H Basophils (%) (Auto) 1.4 % (0.0-2.0) Prothrombin Time 13.4 SEC (9.30-11.50) H Prothromb Time International Ratio 1.3 (0.9-1.1) H Activated Partial Thromboplast Time 29 SEC (23-33) Sodium Level 144 mEQ/L (135-145) Potassium Level 4.3 mEQ/L (3.4-4.9) Chloride Level 103 mEQ/L (98-107) Carbon Dioxide Level 23 mEQ/L (20-30) Anion Gap 18 (5-15) H Blood Urea Nitrogen 5 mg/dL (7-23) L Creatinine 0.5 mg/dL (0.5-0.9) Estimat Glomerular Filtration Rate mL/min (>60) Glucose Level 95 mg/dL (74-106) Calcium Level 8.8 mg/dL (8.6-10.2) Current Medications Medications (Trade) Dose Ordered Sig/Gary Route PRN Reason Start Time Stop Time Status Last Admin Dose Admin Acetaminophen (Tylenol) 650 mg Q4H PRN ORAL FEVER 09/27/16 15:30 10/27/16 15:29 Dextrose (Dextrose 50%) STAT PRN IV Hypoglycemia 09/27/16 15:30 10/27/16 15:29 Famotidine (Pepcid I.v.) 20 mg Q12HR IVP 09/27/16 21:00 10/27/16 20:59 09/28/16 21:25 Lorazepam (Ativan 2mg/ml 1ml) 2 mg Q2H PRN IV For Anxiety 09/27/16 15:30 10/04/16 15:29 Metoprolol Tartrate (Lopressor) 50 mg BID ORAL 09/27/16 18:00 10/27/16 17:59 09/28/16 17:47 Metronidazole (Flagyl) 500 mg Q8HR ORAL 09/27/16 22:00 10/04/16 21:59 09/28/16 21:25 Morphine Sulfate (Morphine Sulfate) 4 mg Q4H PRN IVP Severe Pain (Pain Scale 7-10) 09/27/16 15:30 10/04/16 15:29 09/28/16 20:40 Ondansetron HCl (Zofran) 4 mg Q6H PRN IVP Nausea & Vomiting 09/27/16 15:00 10/27/16 14:59 Pantoprazole 40 mg 40 mg DAILY NG 09/29/16 09:00 10/29/16 08:59 Polyethylene Glycol (Miralax) 17 gm DAILYPRN PRN ORAL Constipation 09/27/16 15:30 10/27/16 15:29 Potassium Chloride (KCl 10% 20 mEq oral solution) 20 meq BID ORAL 09/27/16 18:00 10/27/16 17:59 09/28/16 17:48 Sodium Chloride (NS w/KCl 20mEq) 1,000 ml @ 50 mls/hr Q20H IV 09/27/16 16:30 10/27/16 16:29 09/28/16 14:33 Sodium Chloride (Sodium Chloride 1000ml bag) 1,000 ml @ 10 mls/hr Q24H IVLG 09/29/16 08:35 09/29/16 10:34 Objective HEAD AND NECK: Showed no JVD. LUNGS: Coarse rhonchi. CARDIOVASCULAR: Irregular S1 and S2 with no gallop or murmur. ABDOMEN: Soft and nontender. EXTREMITIES: 1 plus edema. KAISER RODRIGUEZ Sep 29, 2016 09:54
--- NOTE | 2016-09-29 11:33 | Infectious Diseases Prog Note ---
Assessment/Plan Assessment/Plan A: The patient is an 89-year-old, K.pneumoniae UTI , SP Rx C.difficile diarrhea improving Sepsis SP ALOC improving leukocytosis SP Fever SP no evidence of Pna Cxray : NAPD S/P EGD/PEG 09/29 AFib with rapid ventricular response History of AFib Hypothyroidism Dementia. Osteoarthritis Anxiety Dysphagia Failure to thrive NKDA Full Code PLAN: cont flagyl d# 5 / 10 ( 09/26 SP DC cefepime d# 5 ) ( 09/22 SP IV Vanco d# 2 ) Monitor blood culture. Monitor urine culture. Monitor CBC Monitor BNP Subjective Allergies: Coded Allergies: No Known Allergies (Unverified , 09/20/16) Subjective afebrile Objective Vital Signs Last 24 Hour Vital Signs Date Time Temp Pulse Resp B/P Pulse Ox O2 Delivery O2 Flow Rate FiO2 09/29/16 09:49 101 27 100 09/29/16 09:32 101 27 100 09/29/16 09:06 118 20 170/90 100 Nasal Cannula 2.0 09/29/16 09:00 114 20 168/80 100 Nasal Cannula 2.0 09/29/16 08:53 113 20 170/99 100 Nasal Cannula 2.0 09/29/16 08:48 97.0 114 20 171/88 100 Nasal Cannula 2.0 09/29/16 04:00 97.3 102 19 145/101 98 Simple Mask 2.0 09/29/16 00:00 97.2 95 18 155/96 99 Nasal Cannula 2.0 09/28/16 20:00 96.1 98 27 147/112 97 Nasal Cannula 2.0 09/28/16 19:00 Nasal Cannula 3.0 32 09/28/16 19:00 99 Nasal Cannula 3.0 32 09/28/16 17:47 83 146/99 09/28/16 16:11 97.2 83 14 146/99 100 Nasal Cannula 1.0 09/28/16 12:07 98.2 92 20 142/82 97 Nasal Cannula 2.0 Height (Feet): 5 Height (Inches): 5.00 Weight (Pounds): 138 HEENT: atraumatic Respiratory/Chest: lungs clear Cardiovascular: normal rate, regular rhythm Abdomen: soft, non tender, no organomegaly Laboratory Tests Test 09/29/16 05:20 White Blood Count 8.4 K/UL (4.8-10.8) Red Blood Count 4.86 M/UL (4.20-5.40) Hemoglobin 15.1 G/DL (12.0-16.0) Hematocrit 48.2 % (37.0-47.0) H Mean Corpuscular Volume 99 FL (80-99) Mean Corpuscular Hemoglobin 31.0 PG (27.0-31.0) Mean Corpuscular Hemoglobin Concent 31.2 G/DL (32.0-36.0) L Red Cell Distribution Width 13.4 % (11.6-14.8) Platelet Count 227 K/UL (150-450) Mean Platelet Volume 6.5 FL (6.5-10.1) Neutrophils (%) (Auto) 72.9 % (45.0-75.0) Lymphocytes (%) (Auto) 13.4 % (20.0-45.0) L Monocytes (%) (Auto) 8.1 % (1.0-10.0) Eosinophils (%) (Auto) 4.2 % (0.0-3.0) H Basophils (%) (Auto) 1.4 % (0.0-2.0) Prothrombin Time 13.4 SEC (9.30-11.50) H Prothromb Time International Ratio 1.3 (0.9-1.1) H Activated Partial Thromboplast Time 29 SEC (23-33) Sodium Level 144 mEQ/L (135-145) Potassium Level 4.3 mEQ/L (3.4-4.9) Chloride Level 103 mEQ/L (98-107) Carbon Dioxide Level 23 mEQ/L (20-30) Anion Gap 18 (5-15) H Blood Urea Nitrogen 5 mg/dL (7-23) L Creatinine 0.5 mg/dL (0.5-0.9) Estimat Glomerular Filtration Rate mL/min (>60) Glucose Level 95 mg/dL (74-106) Calcium Level 8.8 mg/dL (8.6-10.2) Current Medications Medications (Trade) Dose Ordered Sig/Gary Route PRN Reason Start Time Stop Time Status Last Admin Dose Admin Acetaminophen (Tylenol) 650 mg Q4H PRN ORAL FEVER 09/27/16 15:30 10/27/16 15:29 Dextrose (Dextrose 50%) STAT PRN IV Hypoglycemia 09/27/16 15:30 10/27/16 15:29 Famotidine (Pepcid I.v.) 20 mg Q12HR IVP 09/27/16 21:00 10/27/16 20:59 09/28/16 21:25 Lorazepam (Ativan 2mg/ml 1ml) 2 mg Q2H PRN IV For Anxiety 09/27/16 15:30 10/04/16 15:29 Metoprolol Tartrate (Lopressor) 50 mg BID ORAL 09/27/16 18:00 10/27/16 17:59 09/28/16 17:47 Metronidazole (Flagyl) 500 mg Q8HR ORAL 09/27/16 22:00 10/04/16 21:59 09/28/16 21:25 Morphine Sulfate (Morphine Sulfate) 4 mg Q4H PRN IVP Severe Pain (Pain Scale 7-10) 09/27/16 15:30 10/04/16 15:29 09/28/16 20:40 Ondansetron HCl (Zofran) 4 mg Q6H PRN IVP Nausea & Vomiting 09/27/16 15:00 10/27/16 14:59 Pantoprazole (Protonix) 40 mg DAILY NG 09/29/16 09:00 10/29/16 08:59 Polyethylene Glycol (Miralax) 17 gm DAILYPRN PRN ORAL Constipation 09/27/16 15:30 10/27/16 15:29 Potassium Chloride (KCl 10% 20 mEq oral solution) 20 meq BID ORAL 09/27/16 18:00 10/27/16 17:59 09/28/16 17:48 Sodium Chloride (NS w/KCl 20mEq) 1,000 ml @ 50 mls/hr Q20H IV 09/27/16 16:30 10/27/16 16:29 09/28/16 14:33 JAMIL TOWNSNED M.D. Sep 29, 2016 11:33
[2016-09-29] MEDS: NS w/KCl 20mEq 1,000 ML IV SCH (13:44)
[2016-09-29] MEDS: Metoprolol 50mg tab ORAL SCH ×2 (14:01→21:19)
[2016-09-29] MEDS: KCl 10% 20 mEq/15ml liquid ORAL SCH (14:02)
--- NOTE | 2016-09-29 17:37 | Internal Med Progress Note ---
Subjective Date of Service: Sep 29, 2016 Physician Name Angeli Milner Attending Physician Timo Watkins MD Current Medications Medications (Trade) Dose Ordered Sig/Gary Route PRN Reason Start Time Stop Time Status Last Admin Dose Admin Acetaminophen (Tylenol) 650 mg Q4H PRN ORAL FEVER 09/27/16 15:30 10/27/16 15:29 Dextrose (Dextrose 50%) STAT PRN IV Hypoglycemia 09/27/16 15:30 10/27/16 15:29 Lorazepam (Ativan 2mg/ml 1ml) 2 mg Q2H PRN IV For Anxiety 09/27/16 15:30 10/04/16 15:29 Metoprolol Tartrate (Lopressor) 50 mg BID ORAL 09/27/16 18:00 10/27/16 17:59 09/29/16 14:01 Metronidazole (Flagyl) 500 mg Q8HR ORAL 09/27/16 22:00 10/04/16 21:59 09/29/16 14:00 Morphine Sulfate (Morphine Sulfate) 4 mg Q4H PRN IVP Severe Pain (Pain Scale 7-10) 09/27/16 15:30 10/04/16 15:29 09/28/16 20:40 Ondansetron HCl (Zofran) 4 mg Q6H PRN IVP Nausea & Vomiting 09/27/16 15:00 10/27/16 14:59 Pantoprazole (Protonix) 40 mg DAILY IVP 09/30/16 09:00 10/30/16 08:59 Polyethylene Glycol (Miralax) 17 gm DAILYPRN PRN ORAL Constipation 09/27/16 15:30 10/27/16 15:29 Ranitidine HCl (Zantac) 150 mg DAILY GT 09/30/16 09:00 10/30/16 08:59 Sodium Chloride (NS w/KCl 20mEq) 1,000 ml @ 50 mls/hr Q20H IV 09/27/16 16:30 10/27/16 16:29 09/29/16 13:44 Allergies: Coded Allergies: No Known Allergies (Unverified , 09/20/16) ROS Limited/Unobtainable: Yes Constitutional: Reports: no symptoms HEENT: Reports: no symptoms Cardiovascular: Reports: no symptoms Respiratory: Reports: no symptoms Gastrointestinal/Abdominal: Reports: diarrhea Genitourinary: Reports: no symptoms Neurologic/Psychiatric: Reports: no symptoms Subjective Cover for Int Joaquin-Dr Watkins. Still confused. Failed video swallow;S/P PEG today 09/29/16 Objective Last Vital Signs Date Time Temp Pulse Resp B/P Pulse Ox O2 Delivery O2 Flow Rate FiO2 09/29/16 16:00 96.9 87 18 162/80 99 Nasal Cannula 2.0 09/28/16 19:00 32 Laboratory Tests Test 09/29/16 05:20 White Blood Count 8.4 K/UL (4.8-10.8) Red Blood Count 4.86 M/UL (4.20-5.40) Hemoglobin 15.1 G/DL (12.0-16.0) Hematocrit 48.2 % (37.0-47.0) H Mean Corpuscular Volume 99 FL (80-99) Mean Corpuscular Hemoglobin 31.0 PG (27.0-31.0) Mean Corpuscular Hemoglobin Concent 31.2 G/DL (32.0-36.0) L Red Cell Distribution Width 13.4 % (11.6-14.8) Platelet Count 227 K/UL (150-450) Mean Platelet Volume 6.5 FL (6.5-10.1) Neutrophils (%) (Auto) 72.9 % (45.0-75.0) Lymphocytes (%) (Auto) 13.4 % (20.0-45.0) L Monocytes (%) (Auto) 8.1 % (1.0-10.0) Eosinophils (%) (Auto) 4.2 % (0.0-3.0) H Basophils (%) (Auto) 1.4 % (0.0-2.0) Prothrombin Time 13.4 SEC (9.30-11.50) H Prothromb Time International Ratio 1.3 (0.9-1.1) H Activated Partial Thromboplast Time 29 SEC (23-33) Sodium Level 144 mEQ/L (135-145) Potassium Level 4.3 mEQ/L (3.4-4.9) Chloride Level 103 mEQ/L (98-107) Carbon Dioxide Level 23 mEQ/L (20-30) Anion Gap 18 (5-15) H Blood Urea Nitrogen 5 mg/dL (7-23) L Creatinine 0.5 mg/dL (0.5-0.9) Estimat Glomerular Filtration Rate mL/min (>60) Glucose Level 95 mg/dL (74-106) Calcium Level 8.8 mg/dL (8.6-10.2) Intake and Output 09/28/16 09/29/16 19:00 07:00 Intake Total 600 ml 450 ml Output Total 800 ml 200 ml Balance -200 ml 250 ml Intake Oral 200 ml IV Total 400 ml 450 ml Output Urine Total 800 ml 200 ml # Bowel Movements 1 Objective General Appearance: WD/WN, no apparent distress, alert EENT: PERRL/EOMI, normal ENT inspection Neck: non-tender, normal alignment, supple, normal inspection Cardiovascular: normal peripheral pulses, normal rate, no gallop/murmur, no JVD , irregularly irregular Respiratory/Chest: chest wall non-tender, lungs clear, normal breath sounds, no respiratory distress, no accessory muscle use Abdomen: normal bowel sounds, non tender, soft, no organomegaly, no mass Extremities: normal range of motion 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 (2) UTI (urinary tract infection) Assessment & Plan: kKebsiella pneumoniae. Cont cefoxitin per ID (3) Sepsis (4) HTN (hypertension) Assessment & Plan: Cont metoprolol (5) CHF (congestive heart failure) Assessment & Plan: See cardiology note. Await echocardiogram (6) Alzheimer's dementia (7) Hypokalemia Assessment & Plan: Replace potassium PO (8) Dysphagia Assessment & Plan: Failed video swallow; S/P PEG today 09/29/16-see GI note. (9) Atrial fibrillation Assessment & Plan: See cardiology note. Continue metoprolol (10) Hypothyroidism (11) Depression (12) Klebsiella pneumoniae Assessment & Plan: See UTI above. (13) Leukocytosis Assessment & Plan: Resolving. (14) Aortic stenosis, severe Assessment & Plan: See cardiology note. (15) C. difficile diarrhea Assessment & Plan: Cont oral flagyl per ID Status: progressing Assessment/Plan Reschedule PEG per GI. Plan to D/C to assisted fac AM 09/30/16 ANGELI MILNER Sep 29, 2016 17:37
--- NOTE | 2016-09-29 18:28 | Procedure Note ---
DATE OF PROCEDURE: 09/29/2016 SURGEON: Joshua Garland M.D. PROCEDURE: Upper endoscopy with biopsy and PEG placement. ANESTHESIOLOGIST: Dr. Gloria. INSTRUMENT: Olympus adult flexible upper endoscope. INDICATION: Dysphagia. REASON FOR PROCEDURE: The procedure, risks, benefits, and possible consequences, including hemorrhage, aspiration, perforation and infection, and alternative treatments, were explained to the patient/legal guardian by Dr. Joshua Garland and the patient/legal guardian understood and accepted these risks. PROCEDURE: After informed consent was obtained and the patient was adequately sedated, Olympus upper endoscope was advanced from mouth into the second portion of the duodenum and retroflexion performed in the stomach. The patient has diffuse gastritis, highly suspicious for H. pylori infection. The patient also had two shallow duodenal ulcerations with mild duodenitis. Again, this is suggestive of H pylori infection. Biopsy from antrum was obtained to rule out H. pylori. Then under endoscopic guidance and under sterile condition, a 20-Welsh pull type of G-tube was successfully placed in epigastric area. The distance from the tip of the tube to skin was about 3 cm in size. The patient tolerated the procedure without any complication. SUMMARY FINDINGS: 1. Gastritis status post biopsy. 2. Shallow duodenal ulcerations. 3. Status post successful percutaneous endoscopic gastrostomy placement. RECOMMENDATIONS: 1. Abdominal binder. 2. Elevate the head of the bed at all times. 3. G-tube flush and G-tube care. 4. The patient received a dose of antibiotics prior to this procedure. 5. Follow up biopsy results and treat for H. pylori if it is positive. Meanwhile, start the patient on Protonix daily. I want to thank, Dr. Timo Watkins, for this kind referral. Joshua Garland M.D. DR: DANY JOB#: [id number] CC: Timo Watkins M.D.
[2016-09-30] VITALS: BP 139/76
[2016-09-30 04:00] VITALS: BP 162/90
[2016-09-30] MEDS: NS w/KCl 20mEq 1,000 ML IV SCH (05:19)
[2016-09-30] MEDS: metroNIDAZOLE 500mg tab ORAL SCH ×3 (05:27→21:19)
[2016-09-30 07:11] LABS: BASOPHILS % (AUTO) 0.5 % (0.0-2.0); LYMPHOCYTES % (AUTO) 6.1 % (20.0-45.0); MEAN CORPUSCULAR HEMOGLOBIN 33.8 PG (27.0-31.0); MEAN CORPUSCULAR VOLUME 96 FL (80-99); MEAN PLATELET VOLUME 6.5 FL (6.5-10.1); MONOCYTES % (AUTO) 5.8 % (1.0-10.0); NEUTROPHILS % (AUTO) 84.6 % (45.0-75.0); PLATELET COUNT 198 K/UL (150-450); RED BLOOD COUNT 3.82 M/UL (4.20-5.40); RED CELL DISTRIBUTION WIDTH 14.3 % (11.6-14.8); WHITE BLOOD COUNT 10.7 K/UL (4.8-10.8)
[2016-09-30 07:17] LABS: ANION GAP 17 (5-15); CALCIUM 8.9 mg/dL (8.6-10.2); CARBON DIOXIDE 23 mEQ/L (20-30); CHLORIDE 105 mEQ/L (98-107); CREATININE 0.6 mg/dL (0.5-0.9); HEMOLYSIS 1; MAGNESIUM 1.4 mg/dL (1.7-2.5); PHOSPHORUS 2.1 mg/dL (2.5-4.8); POTASSIUM 4.9 mEQ/L (3.4-4.9); SODIUM 145 mEQ/L (135-145)
[2016-09-30] MEDS: Pantoprazole Inj IVP SCH (08:18)
[2016-09-30] MEDS: Metoprolol 50mg tab ORAL SCH ×2 (08:18→17:46)
[2016-09-30 08:32] VITALS: BP 148/82
--- NOTE | 2016-09-30 09:14 | Pulmonology Progress Note ---
Assessment/Plan Assessment/Plan ASSESSMENT sepsis C dif colitis acute encephalopathy UTI/Klebsiella PNA, s/p Rx A fib with RVR hypothyroidism depression dysphagia s/p PEG PLAN OF CARE gentle IVF O2 HHN prn CXR negative s/p Rx for UTI stool + C dif, on Flagyl blood cx negative HR controlled with BB , cardio follows no anticoagulation, considering advanced age and AMS acute encephalopathy likely 2 to sepsis, improving to baseline strict aspiration precautions, monitor GT feeding tolerance monitor tolerance abd binder , GT site care Venous Duplex BLE negative GI prophylaxis TSH WNL, continue current dose of Levothyroxine' case discussed and evaluated by supervising physician Subjective Allergies: Coded Allergies: No Known Allergies (Unverified , 09/20/16) Subjective afebrile, no leucocytosis no signs fo respiratory distress HR controlled awake, poorly but responsive started on GT feeding, tolerates Objective Last 24 Hour Vital Signs Date Time Temp Pulse Resp B/P Pulse Ox O2 Delivery O2 Flow Rate FiO2 09/30/16 08:32 98.5 114 20 148/82 96 Room Air 09/30/16 08:18 94 162/90 09/30/16 04:00 97.6 94 18 162/90 97 Nasal Cannula 2.0 09/30/16 00:00 97.2 84 18 139/76 98 Nasal Cannula 2.0 09/29/16 21:19 103 144/87 09/29/16 20:00 97.7 103 17 144/87 99 Nasal Cannula 09/29/16 16:00 96.9 87 18 162/80 99 Nasal Cannula 2.0 09/29/16 14:01 118 153/106 09/29/16 14:00 118 153/106 09/29/16 12:00 96.4 102 18 129/80 100 Room Air 09/29/16 09:49 101 27 100 09/29/16 09:32 101 27 100 Intake and Output 09/29/16 09/30/16 19:00 07:00 Intake Total 1045 ml 1369 ml Output Total 200 ml 850 ml Balance 845 ml 519 ml Intake Oral 320 ml Free Water 300 ml IV Total 725 ml 584 ml Tube Feeding 455 ml Blood Product 30 ml Output Urine Total 200 ml 850 ml # Bowel Movements 1 Objective General Appearance: bedridden, elderly, frail female in NAD HEENT: normocephalic, atraumatic, anicteric Respiratory/Chest: lungs clear, no respiratory distress, no accessory muscle use Cardiovascular: normal peripheral pulses, no JVD, irregularly irregular, rate controlled Abdomen: normal bowel sounds, soft, non tender, G tube, abdominal binder Extremities: no edema, pedal pulses normal Neurologic/Psychiatric: bedridden, alert, responsive - poorly but responsive Musculoskeletal: atrophy - BLE Laboratory Tests 09/30/16 05:05: White Blood Count 10.7, Red Blood Count 3.82L, Hemoglobin 12.9, Hematocrit 36.8L , Mean Corpuscular Volume 96, Mean Corpuscular Hemoglobin 33.8H, Mean Corpuscular Hemoglobin Concent 35.0, Red Cell Distribution Width 14.3, Platelet Count 198, Mean Platelet Volume 6.5, Neutrophils (%) (Auto) 84.6H, Lymphocytes ( %) (Auto) 6.1L, Monocytes (%) (Auto) 5.8, Eosinophils (%) (Auto) 3.0, Basophils (%) (Auto) 0.5, Sodium Level 145, Potassium Level 4.9, Chloride Level 105, Carbon Dioxide Level 23, Anion Gap 17H, Blood Urea Nitrogen 7, Creatinine 0.6, Estimat Glomerular Filtration Rate , Glucose Level 255#H, Calcium Level 8.9, Phosphorus Level 2.1L, Magnesium Level 1.4L Current Medications Medications (Trade) Dose Ordered Sig/Gary Route PRN Reason Start Time Stop Time Status Last Admin Dose Admin Acetaminophen (Tylenol) 650 mg Q4H PRN ORAL FEVER 09/27/16 15:30 10/27/16 15:29 Dextrose (Dextrose 50%) STAT PRN IV Hypoglycemia 09/27/16 15:30 10/27/16 15:29 Lorazepam (Ativan 2mg/ml 1ml) 2 mg Q2H PRN IV For Anxiety 09/27/16 15:30 10/04/16 15:29 Metoprolol Tartrate (Lopressor) 50 mg BID ORAL 09/27/16 18:00 10/27/16 17:59 09/30/16 08:18 Metronidazole (Flagyl) 500 mg Q8HR ORAL 09/27/16 22:00 10/04/16 21:59 09/30/16 05:27 Morphine Sulfate (Morphine Sulfate) 4 mg Q4H PRN IVP Severe Pain (Pain Scale 7-10) 09/27/16 15:30 10/04/16 15:29 09/28/16 20:40 Ondansetron HCl (Zofran) 4 mg Q6H PRN IVP Nausea & Vomiting 09/27/16 15:00 10/27/16 14:59 Pantoprazole (Protonix) 40 mg DAILY IVP 09/30/16 09:00 10/30/16 08:59 09/30/16 08:18 Polyethylene Glycol (Miralax) 17 gm DAILYPRN PRN ORAL Constipation 09/27/16 15:30 10/27/16 15:29 Ranitidine HCl (Zantac) 150 mg DAILY GT 09/30/16 09:00 10/30/16 08:59 09/30/16 08:18 Sodium Chloride (NS w/KCl 20mEq) 1,000 ml @ 50 mls/hr Q20H IV 09/27/16 16:30 10/27/16 16:29 09/30/16 05:19 [facility] Sep 30, 2016 09:14
[2016-09-30 12:11] VITALS: BP 138/85
--- NOTE | 2016-09-30 13:11 | General Progress Note ---
Assessment/Plan Problem List: (1) Altered mental status ICD Codes: R41.82 - Altered mental status, unspecified SNOMED: 172818883 (2) HTN (hypertension) ICD Codes: I10 - Essential (primary) hypertension SNOMED: 77420523 (3) Alzheimer's dementia ICD Codes: G30.9 - Alzheimer's disease, unspecified SNOMED: 10021328 (4) Dysphagia ICD Codes: R13.10 - Dysphagia, unspecified SNOMED: 58940512, 900705325 Assessment/Plan gtf fu labs dc planning per primary team Subjective ROS Limited/Unobtainable: No Allergies: Coded Allergies: No Known Allergies (Unverified , 09/20/16) Objective Last 24 Hour Vital Signs Date Time Temp Pulse Resp B/P Pulse Ox O2 Delivery O2 Flow Rate FiO2 09/30/16 12:11 98.2 118 20 138/85 96 Room Air 09/30/16 08:32 98.5 114 20 148/82 96 Room Air 09/30/16 08:18 94 162/90 09/30/16 04:00 97.6 94 18 162/90 97 Nasal Cannula 2.0 09/30/16 00:00 97.2 84 18 139/76 98 Nasal Cannula 2.0 09/29/16 21:19 103 144/87 09/29/16 20:00 97.7 103 17 144/87 99 Nasal Cannula 09/29/16 16:00 96.9 87 18 162/80 99 Nasal Cannula 2.0 09/29/16 14:01 118 153/106 09/29/16 14:00 118 153/106 Intake and Output 09/29/16 09/30/16 19:00 07:00 Intake Total 1045 ml 1369 ml Output Total 200 ml 850 ml Balance 845 ml 519 ml Intake Oral 320 ml Free Water 300 ml IV Total 725 ml 584 ml Tube Feeding 455 ml Blood Product 30 ml Output Urine Total 200 ml 850 ml # Bowel Movements 1 Laboratory Tests 09/30/16 05:05: White Blood Count 10.7, Red Blood Count 3.82L, Hemoglobin 12.9, Hematocrit 36.8L , Mean Corpuscular Volume 96, Mean Corpuscular Hemoglobin 33.8H, Mean Corpuscular Hemoglobin Concent 35.0, Red Cell Distribution Width 14.3, Platelet Count 198, Mean Platelet Volume 6.5, Neutrophils (%) (Auto) 84.6H, Lymphocytes ( %) (Auto) 6.1L, Monocytes (%) (Auto) 5.8, Eosinophils (%) (Auto) 3.0, Basophils (%) (Auto) 0.5, Sodium Level 145, Potassium Level 4.9, Chloride Level 105, Carbon Dioxide Level 23, Anion Gap 17H, Blood Urea Nitrogen 7, Creatinine 0.6, Estimat Glomerular Filtration Rate , Glucose Level 255#H, Calcium Level 8.9, Phosphorus Level 2.1L, Magnesium Level 1.4L Height (Feet): 5 Height (Inches): 5.00 Weight (Pounds): 138 General Appearance: no apparent distress EENT: normal ENT inspection Neck: supple Cardiovascular: normal rate Respiratory/Chest: decreased breath sounds Abdomen: normal bowel sounds, non tender, soft Extremities: non-tender DUDLEY SALGADO Sep 30, 2016 13:11
--- NOTE | 2016-09-30 13:23 | Cardiac Electrophysiology PN ---
Assessment/Plan Assessment/Plan 1. Atrial fibrillation with rapid ventricular response.Continue Metoprolol 50 bid.Off anticoagulation for AMS and age 89 and fall risk. 2. Hypertension.On Metoprolol 50 bid. 3. 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 S/P Sepsis 5. C Diff on po Flagyl 6. Encephalopathy. 7. Dysphagia. S/P PEG 09/29/[address] Dada CHOPRA RN and Dr Garland Subjective Subjective Had PEG placement yesterday and was started PEG feeding. Comfortable in NAD. Objective Last 24 Hour Vital Signs Date Time Temp Pulse Resp B/P Pulse Ox O2 Delivery O2 Flow Rate FiO2 09/30/16 12:11 98.2 118 20 138/85 96 Room Air 09/30/16 08:32 98.5 114 20 148/82 96 Room Air 09/30/16 08:18 94 162/90 09/30/16 04:00 97.6 94 18 162/90 97 Nasal Cannula 2.0 09/30/16 00:00 97.2 84 18 139/76 98 Nasal Cannula 2.0 09/29/16 21:19 103 144/87 09/29/16 20:00 97.7 103 17 144/87 99 Nasal Cannula 09/29/16 16:00 96.9 87 18 162/80 99 Nasal Cannula 2.0 09/29/16 14:01 118 153/106 09/29/16 14:00 118 153/106 Intake and Output 09/29/16 09/30/16 19:00 07:00 Intake Total 1045 ml 1369 ml Output Total 200 ml 850 ml Balance 845 ml 519 ml Intake Oral 320 ml Free Water 300 ml IV Total 725 ml 584 ml Tube Feeding 455 ml Blood Product 30 ml Output Urine Total 200 ml 850 ml # Bowel Movements 1 Laboratory Tests Test 09/30/16 05:05 White Blood Count 10.7 K/UL (4.8-10.8) Red Blood Count 3.82 M/UL (4.20-5.40) L Hemoglobin 12.9 G/DL (12.0-16.0) Hematocrit 36.8 % (37.0-47.0) L Mean Corpuscular Volume 96 FL (80-99) Mean Corpuscular Hemoglobin 33.8 PG (27.0-31.0) H Mean Corpuscular Hemoglobin Concent 35.0 G/DL (32.0-36.0) Red Cell Distribution Width 14.3 % (11.6-14.8) Platelet Count 198 K/UL (150-450) Mean Platelet Volume 6.5 FL (6.5-10.1) Neutrophils (%) (Auto) 84.6 % (45.0-75.0) H Lymphocytes (%) (Auto) 6.1 % (20.0-45.0) L Monocytes (%) (Auto) 5.8 % (1.0-10.0) Eosinophils (%) (Auto) 3.0 % (0.0-3.0) Basophils (%) (Auto) 0.5 % (0.0-2.0) Sodium Level 145 mEQ/L (135-145) Potassium Level 4.9 mEQ/L (3.4-4.9) Chloride Level 105 mEQ/L (98-107) Carbon Dioxide Level 23 mEQ/L (20-30) Anion Gap 17 (5-15) H Blood Urea Nitrogen 7 mg/dL (7-23) Creatinine 0.6 mg/dL (0.5-0.9) Estimat Glomerular Filtration Rate mL/min (>60) Glucose Level 255 mg/dL (74-106) #H Calcium Level 8.9 mg/dL (8.6-10.2) Phosphorus Level 2.1 mg/dL (2.5-4.8) L Magnesium Level 1.4 mg/dL (1.7-2.5) L Objective HEAD AND NECK: Showed no JVD. LUNGS: Coarse rhonchi. CARDIOVASCULAR: Irregular S1 and S2 with no gallop or murmur. ABDOMEN: Soft and nontender.PEG in place EXTREMITIES: 1 plus edema. KAISER RODRIGUEZ Sep 30, 2016 13:23
[2016-09-30 16:00] VITALS: BP 150/85
--- NOTE | 2016-09-30 16:06 | Internal Med Progress Note ---
Subjective Date of Service: Sep 30, 2016 Physician Name Rodrigo Milner Attending Physician Timo Watkins MD Current Medications Medications (Trade) Dose Ordered Sig/Gary Route PRN Reason Start Time Stop Time Status Last Admin Dose Admin Acetaminophen (Tylenol) 650 mg Q4H PRN ORAL FEVER 09/27/16 15:30 10/27/16 15:29 Dextrose (Dextrose 50%) STAT PRN IV Hypoglycemia 09/27/16 15:30 10/27/16 15:29 Lorazepam (Ativan 2mg/ml 1ml) 2 mg Q2H PRN IV For Anxiety 09/27/16 15:30 10/04/16 15:29 Metoprolol Tartrate (Lopressor) 50 mg BID ORAL 09/27/16 18:00 10/27/16 17:59 09/30/16 08:18 Metronidazole (Flagyl) 500 mg Q8HR ORAL 09/27/16 22:00 10/04/16 21:59 09/30/16 13:36 Morphine Sulfate (Morphine Sulfate) 4 mg Q4H PRN IVP Severe Pain (Pain Scale 7-10) 09/27/16 15:30 10/04/16 15:29 09/28/16 20:40 Ondansetron HCl (Zofran) 4 mg Q6H PRN IVP Nausea & Vomiting 09/27/16 15:00 10/27/16 14:59 Pantoprazole (Protonix) 40 mg DAILY IVP 09/30/16 09:00 10/30/16 08:59 09/30/16 08:18 Polyethylene Glycol (Miralax) 17 gm DAILYPRN PRN ORAL Constipation 09/27/16 15:30 10/27/16 15:29 Ranitidine HCl (Zantac) 150 mg DAILY GT 09/30/16 09:00 10/30/16 08:59 09/30/16 08:18 Sodium Chloride (NS w/KCl 20mEq) 1,000 ml @ 50 mls/hr Q20H IV 09/27/16 16:30 10/27/16 16:29 09/30/16 05:19 Allergies: Coded Allergies: No Known Allergies (Unverified , 09/20/16) ROS Limited/Unobtainable: Yes Subjective 89 YO F admitted with altered mental status. Now C.Diff diarrhea and sepsis/ UTI. Cover for Int Med-Dr Watkins. Still confused. Failed video swallow;S/P PEG 09/29/16. Await transfer to [facility] Objective Last Vital Signs Date Time Temp Pulse Resp B/P Pulse Ox O2 Delivery O2 Flow Rate FiO2 09/30/16 12:11 98.2 118 20 138/85 96 Room Air 09/30/16 04:00 2.0 09/28/16 19:00 32 Laboratory Tests Test 09/30/16 05:05 White Blood Count 10.7 K/UL (4.8-10.8) Red Blood Count 3.82 M/UL (4.20-5.40) L Hemoglobin 12.9 G/DL (12.0-16.0) Hematocrit 36.8 % (37.0-47.0) L Mean Corpuscular Volume 96 FL (80-99) Mean Corpuscular Hemoglobin 33.8 PG (27.0-31.0) H Mean Corpuscular Hemoglobin Concent 35.0 G/DL (32.0-36.0) Red Cell Distribution Width 14.3 % (11.6-14.8) Platelet Count 198 K/UL (150-450) Mean Platelet Volume 6.5 FL (6.5-10.1) Neutrophils (%) (Auto) 84.6 % (45.0-75.0) H Lymphocytes (%) (Auto) 6.1 % (20.0-45.0) L Monocytes (%) (Auto) 5.8 % (1.0-10.0) Eosinophils (%) (Auto) 3.0 % (0.0-3.0) Basophils (%) (Auto) 0.5 % (0.0-2.0) Sodium Level 145 mEQ/L (135-145) Potassium Level 4.9 mEQ/L (3.4-4.9) Chloride Level 105 mEQ/L (98-107) Carbon Dioxide Level 23 mEQ/L (20-30) Anion Gap 17 (5-15) H Blood Urea Nitrogen 7 mg/dL (7-23) Creatinine 0.6 mg/dL (0.5-0.9) Estimat Glomerular Filtration Rate mL/min (>60) Glucose Level 255 mg/dL (74-106) #H Calcium Level 8.9 mg/dL (8.6-10.2) Phosphorus Level 2.1 mg/dL (2.5-4.8) L Magnesium Level 1.4 mg/dL (1.7-2.5) L Intake and Output 09/29/16 09/30/16 19:00 07:00 Intake Total 1045 ml 1369 ml Output Total 200 ml 850 ml Balance 845 ml 519 ml Intake Oral 320 ml Free Water 300 ml IV Total 725 ml 584 ml Tube Feeding 455 ml Blood Product 30 ml Output Urine Total 200 ml 850 ml # Bowel Movements 1 Objective General Appearance: WD/WN, no apparent distress, alert EENT: PERRL/EOMI, normal ENT inspection Neck: non-tender, normal alignment, supple, normal inspection Cardiovascular: normal peripheral pulses, normal rate, no gallop/murmur, no JVD , irregularly irregular Respiratory/Chest: chest wall non-tender, lungs clear, normal breath sounds, no respiratory distress, no accessory muscle use Abdomen: normal bowel sounds, non tender, soft, no organomegaly, no mass Extremities: normal range of motion 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 (2) UTI (urinary tract infection) Assessment & Plan: kKebsiella pneumoniae. Cont cefoxitin per ID (3) Sepsis (4) HTN (hypertension) Assessment & Plan: Cont metoprolol (5) CHF (congestive heart failure) Assessment & Plan: See cardiology note. Await echocardiogram (6) Alzheimer's dementia (7) Hypokalemia Assessment & Plan: Replace potassium PO (8) Dysphagia Assessment & Plan: Failed video swallow; S/P PEG09/29/16-see GI note. (9) Atrial fibrillation Assessment & Plan: See cardiology note. Continue metoprolol (10) Hypothyroidism (11) Depression (12) Klebsiella pneumoniae Assessment & Plan: See UTI above. (13) Leukocytosis Assessment & Plan: Resolving. (14) Aortic stenosis, severe Assessment & Plan: See cardiology note. (15) C. difficile diarrhea Assessment & Plan: Cont oral flagyl per ID Status: progressing Assessment/Plan Plan to D/C to [facility] AM 10/01/16 RODRIGO MILNER Sep 30, 2016 16:06
[2016-09-30 20:10] VITALS: BP 153/86
[2016-10-01] VITALS: BP 146/72
[2016-10-01] MEDS: NS w/KCl 20mEq 1,000 ML IV SCH ×2 (00:32→21:14)
[2016-10-01] MEDS: Morphine Sulfate 4mg/ml Inj IVP PRN (02:45)
[2016-10-01 04:00] VITALS: BP_SYST 112; BP_SYST 154; BP_DIAS 62; BP_DIAS 90
[2016-10-01] MEDS: metroNIDAZOLE 500mg tab ORAL SCH ×3 (06:40→21:14)
[2016-10-01 07:16] LABS: BASOPHILS % (AUTO) 0.8 % (0.0-2.0); EOSINOPHILS % (AUTO) 3.7 % (0.0-3.0); LYMPHOCYTES % (AUTO) 8.2 % (20.0-45.0); MEAN CORPUSCULAR HEMOGLOBIN 31.4 PG (27.0-31.0); MEAN CORPUSCULAR HGB CONC 32.5 G/DL (32.0-36.0); MEAN CORPUSCULAR VOLUME 97 FL (80-99); MEAN PLATELET VOLUME 7.4 FL (6.5-10.1); MONOCYTES % (AUTO) 8.9 % (1.0-10.0); NEUTROPHILS % (AUTO) 78.4 % (45.0-75.0); PLATELET COUNT 214 K/UL (150-450); RED BLOOD COUNT 4.74 M/UL (4.20-5.40); RED CELL DISTRIBUTION WIDTH 13.9 % (11.6-14.8); WHITE BLOOD COUNT 13.3 K/UL (4.8-10.8)
[2016-10-01 07:32] LABS: ANION GAP 10 (5-15); CALCIUM 8.6 mg/dL (8.6-10.2); CARBON DIOXIDE 29 mEQ/L (20-30); CHLORIDE 105 mEQ/L (98-107); CREATININE 0.5 mg/dL (0.5-0.9); HEMOLYSIS 6; POTASSIUM 3.9 mEQ/L (3.4-4.9); SODIUM 144 mEQ/L (135-145)
[2016-10-01 08:00] VITALS: BP 133/64
[2016-10-01] MEDS: Metoprolol 50mg tab ORAL SCH ×2 (09:52→18:16)
[2016-10-01] MEDS: Pantoprazole Inj IVP SCH (09:53)
--- NOTE | 2016-10-01 10:30 | Cardiology Report ---
APPROVED REPORT EXAM: Two-dimensional and M-mode echocardiogram with Doppler and color Doppler. INDICATION Congestive Heart Failure M-Mode DIMENSIONS IVSd0.5 (0.7-1.1cm)Left Atrium (MM)3.6 (1.6-4.0cm) LVDd4.6 (3.5-5.6cm)Aortic Root2.6 (2.0-3.7cm) PWd0.7 (0.7-1.1cm)Aortic Cusp Exc.0.7 (1.5-2.0cm) IVSs0.9 cm LVDs3.1 (2.5-4.0cm) PWs0.7 cm Technically difficult study due to poor acoustic windows. Normal left ventricular chamber size, systolic function and wall motion. Left ventricular ejection fraction estimated to be 60-65%. Mild left ventricular hypertrophy. No evidence of pericardial fat or effusion. Mild bi-atrial enlargement by 2D. Aortic valve calcification with decreased cusp excursion c/w MODERATE aortic stenosis. Mildly thickened mitral valve leaflets with normal excursion. Mild mitral annulus and aortic root calcification. Pulmonic valve not well visualized. Normal tricuspid valve structure. IVC is normal in size with physiologic collapse. A color flow and spectral Doppler study was performed and revealed: Mild aortic regurgitation. Peak aortic valve gradient of 33mmHg and a mean of 18 mmHg. Mild mitral regurgitation. Left ventricular diastolic dysfunction grade 3. Moderate tricuspid regurgitation (2 jets). Tricuspid systolic velocities suggests peak right ventricular systolic pressure of 37 mmHg Consistent with mild pulmonary hypertension. Clinical criteria: KEYON Damian and have been notified on 09/23/16 at 1pm
--- NOTE | 2016-10-01 11:56 | General Progress Note ---
Assessment/Plan Problem List: (1) Altered mental status ICD Codes: R41.82 - Altered mental status, unspecified SNOMED: 440892623 (2) HTN (hypertension) ICD Codes: I10 - Essential (primary) hypertension SNOMED: 05967043 (3) Alzheimer's dementia ICD Codes: G30.9 - Alzheimer's disease, unspecified SNOMED: 31066564 (4) Dysphagia ICD Codes: R13.10 - Dysphagia, unspecified SNOMED: 83407181, 311235166 Assessment/Plan gtf fu labs dc planning per primary team Subjective ROS Limited/Unobtainable: No Allergies: Coded Allergies: No Known Allergies (Unverified , 09/20/16) Objective Last 24 Hour Vital Signs Date Time Temp Pulse Resp B/P Pulse Ox O2 Delivery O2 Flow Rate FiO2 10/01/16 09:52 99 133/64 10/01/16 08:00 97.0 99 22 133/64 99 Room Air 10/01/16 04:00 97.7 98 18 112/62 97 Room Air 10/01/16 03:15 97.9 10/01/16 00:00 97.9 98 20 146/72 97 Nasal Cannula 2.0 09/30/16 20:10 96.6 96 23 153/86 96 Room Air 09/30/16 17:46 100 150/85 09/30/16 16:00 97.7 100 21 150/85 96 Room Air 09/30/16 12:11 98.2 118 20 138/85 96 Room Air Intake and Output 09/30/16 10/01/16 19:00 07:00 Intake Total 1620 ml 1680 ml Output Total 400 ml 550 ml Balance 1220 ml 1130 ml Free Water 300 ml 360 ml IV Total 600 ml 600 ml Tube Feeding 720 ml 720 ml Output Urine Total 400 ml 550 ml # Voids 1 Laboratory Tests 10/01/16 05:00: White Blood Count 13.3H, Red Blood Count 4.74, Hemoglobin 14.9, Hematocrit 45.9 , Mean Corpuscular Volume 97, Mean Corpuscular Hemoglobin 31.4H, Mean Corpuscular Hemoglobin Concent 32.5, Red Cell Distribution Width 13.9, Platelet Count 214, Mean Platelet Volume 7.4, Neutrophils (%) (Auto) 78.4H, Lymphocytes ( %) (Auto) 8.2L, Monocytes (%) (Auto) 8.9, Eosinophils (%) (Auto) 3.7H, Basophils (%) (Auto) 0.8, Sodium Level 144, Potassium Level 3.9, Chloride Level 105, Carbon Dioxide Level 29, Anion Gap 10, Blood Urea Nitrogen 11, Creatinine 0.5, Estimat Glomerular Filtration Rate , Glucose Level 203H, Calcium Level 8.6 Height (Feet): 5 Height (Inches): 5.00 Weight (Pounds): 138 General Appearance: no apparent distress EENT: normal ENT inspection Neck: supple Cardiovascular: normal rate Respiratory/Chest: decreased breath sounds Abdomen: normal bowel sounds, non tender, soft Extremities: non-tender DUDLEY SALGADO Oct 01, 2016 11:56
[2016-10-01 12:00] VITALS: BP 127/85
--- NOTE | 2016-10-01 12:40 | Infectious Diseases Prog Note ---
Assessment/Plan Assessment/Plan A: The patient is an 89-year-old, K.pneumoniae UTI , SP Rx C.difficile diarrhea improving Sepsis SP ALOC improving leukocytosis , mild ( will monitor ) Fever SP no evidence of Pna Cxray : NAPD S/P EGD/PEG 09/29 AFib with rapid ventricular response History of AFib Hypothyroidism Dementia. Osteoarthritis Anxiety Dysphagia Failure to thrive NKDA Full Code PLAN: cont flagyl d# / ( 09/26 SP DC cefepime d# 5 ) ( 09/22 SP IV Vanco d# 2 ) Monitor blood culture. Monitor urine culture. Monitor CBC Monitor BNP Subjective Constitutional: Denies: anorexia, chills, drenching sweats, fatigue, fever, no symptoms, other Allergies: Coded Allergies: No Known Allergies (Unverified , 09/20/16) Subjective afebrile Objective Vital Signs Last 24 Hour Vital Signs Date Time Temp Pulse Resp B/P Pulse Ox O2 Delivery O2 Flow Rate FiO2 10/01/16 09:52 99 133/64 10/01/16 08:00 97.0 99 22 133/64 99 Room Air 10/01/16 04:00 97.7 98 18 112/62 97 Room Air 10/01/16 03:15 97.9 10/01/16 00:00 97.9 98 20 146/72 97 Nasal Cannula 2.0 09/30/16 20:10 96.6 96 23 153/86 96 Room Air 09/30/16 17:46 100 150/85 09/30/16 16:00 97.7 100 21 150/85 96 Room Air Height (Feet): 5 Height (Inches): 5.00 Weight (Pounds): 138 HEENT: anicteric Respiratory/Chest: normal breath sounds Cardiovascular: regular rhythm Abdomen: no organomegaly Laboratory Tests Test 10/01/16 05:00 White Blood Count 13.3 K/UL (4.8-10.8) H Red Blood Count 4.74 M/UL (4.20-5.40) Hemoglobin 14.9 G/DL (12.0-16.0) Hematocrit 45.9 % (37.0-47.0) Mean Corpuscular Volume 97 FL (80-99) Mean Corpuscular Hemoglobin 31.4 PG (27.0-31.0) H Mean Corpuscular Hemoglobin Concent 32.5 G/DL (32.0-36.0) Red Cell Distribution Width 13.9 % (11.6-14.8) Platelet Count 214 K/UL (150-450) Mean Platelet Volume 7.4 FL (6.5-10.1) Neutrophils (%) (Auto) 78.4 % (45.0-75.0) H Lymphocytes (%) (Auto) 8.2 % (20.0-45.0) L Monocytes (%) (Auto) 8.9 % (1.0-10.0) Eosinophils (%) (Auto) 3.7 % (0.0-3.0) H Basophils (%) (Auto) 0.8 % (0.0-2.0) Sodium Level 144 mEQ/L (135-145) Potassium Level 3.9 mEQ/L (3.4-4.9) Chloride Level 105 mEQ/L (98-107) Carbon Dioxide Level 29 mEQ/L (20-30) Anion Gap 10 (5-15) Blood Urea Nitrogen 11 mg/dL (7-23) Creatinine 0.5 mg/dL (0.5-0.9) Estimat Glomerular Filtration Rate mL/min (>60) Glucose Level 203 mg/dL (74-106) H Calcium Level 8.6 mg/dL (8.6-10.2) Current Medications Medications (Trade) Dose Ordered Sig/Gary Route PRN Reason Start Time Stop Time Status Last Admin Dose Admin Acetaminophen (Tylenol) 650 mg Q4H PRN ORAL FEVER 09/27/16 15:30 10/27/16 15:29 Dextrose (Dextrose 50%) STAT PRN IV Hypoglycemia 09/27/16 15:30 10/27/16 15:29 Lorazepam (Ativan 2mg/ml 1ml) 2 mg Q2H PRN IV For Anxiety 09/27/16 15:30 10/04/16 15:29 Metoprolol Tartrate (Lopressor) 50 mg BID ORAL 09/27/16 18:00 10/27/16 17:59 10/01/16 09:52 Metronidazole (Flagyl) 500 mg Q8HR ORAL 09/27/16 22:00 10/04/16 21:59 10/01/16 06:40 Morphine Sulfate (Morphine Sulfate) 4 mg Q4H PRN IVP Severe Pain (Pain Scale 7-10) 09/27/16 15:30 10/04/16 15:29 10/01/16 02:45 Ondansetron HCl (Zofran) 4 mg Q6H PRN IVP Nausea & Vomiting 09/27/16 15:00 10/27/16 14:59 Pantoprazole (Protonix) 40 mg DAILY IVP 09/30/16 09:00 10/30/16 08:59 10/01/16 09:53 Polyethylene Glycol (Miralax) 17 gm DAILYPRN PRN ORAL Constipation 09/27/16 15:30 10/27/16 15:29 Ranitidine HCl (Zantac) 150 mg DAILY GT 09/30/16 09:00 10/30/16 08:59 10/01/16 09:53 Sodium Chloride (NS w/KCl 20mEq) 1,000 ml @ 50 mls/hr Q20H IV 09/27/16 16:30 10/27/16 16:29 10/01/16 00:32 JAMIL TOWNSEND M.D. Oct 01, 2016 12:40
--- NOTE | 2016-10-01 13:35 | Pulmonology Progress Note ---
Assessment/Plan Assessment/Plan ASSESSMENT sepsis C dif colitis acute encephalopathy UTI/Klebsiella PNA, s/p Rx A fib with RVR hypothyroidism depression dysphagia s/p PEG e/lyte imbalance PLAN OF CARE dc IVF O2 HHN prn CXR negative fup with CXR in am s/p Rx for UTI stool + C dif, on Flagyl blood cx negative replace Mg and P ( done late yesterday as added labs, not notified by nursing staff of results) check lytes in am HR controlled with BB , cardio follows no anticoagulation, considering advanced age and AMS acute encephalopathy likely 2 to sepsis, improving to baseline strict aspiration precautions, monitor GT feeding tolerance abd binder , GT site care Venous Duplex BLE negative GI prophylaxis TSH WNL, continue current dose of Levothyroxine' dc plan as per PMD case discussed and evaluated by supervising physician Subjective Allergies: Coded Allergies: No Known Allergies (Unverified , 09/20/16) Subjective afebrile, no leucocytosis no signs fo respiratory distress HR controlled awake, poorly but responsive on GT feeding, tolerates mild leukocytosis today, afebrile low Mg and P yesterday, apparently were not replaced Objective Last 24 Hour Vital Signs Date Time Temp Pulse Resp B/P Pulse Ox O2 Delivery O2 Flow Rate FiO2 10/01/16 09:52 99 133/64 10/01/16 08:00 97.0 99 22 133/64 99 Room Air 10/01/16 04:00 97.7 98 18 112/62 97 Room Air 10/01/16 03:15 97.9 10/01/16 00:00 97.9 98 20 146/72 97 Nasal Cannula 2.0 09/30/16 20:10 96.6 96 23 153/86 96 Room Air 09/30/16 17:46 100 150/85 09/30/16 16:00 97.7 100 21 150/85 96 Room Air Intake and Output 09/30/16 10/01/16 19:00 07:00 Intake Total 1620 ml 1680 ml Output Total 400 ml 550 ml Balance 1220 ml 1130 ml Free Water 300 ml 360 ml IV Total 600 ml 600 ml Tube Feeding 720 ml 720 ml Output Urine Total 400 ml 550 ml # Voids 1 Objective General Appearance: bedridden, elderly, frail female in NAD HEENT: normocephalic, atraumatic, anicteric Respiratory/Chest: lungs clear, no respiratory distress, no accessory muscle use Cardiovascular: normal peripheral pulses, no JVD, irregularly irregular, rate controlled Abdomen: normal bowel sounds, soft, non tender, G tube, abdominal binder Extremities: no edema, pedal pulses normal Neurologic/Psychiatric: bedridden, alert, responsive - poorly but responsive Musculoskeletal: atrophy - BLE Laboratory Tests 10/01/16 05:00: White Blood Count 13.3H, Red Blood Count 4.74, Hemoglobin 14.9, Hematocrit 45.9 , Mean Corpuscular Volume 97, Mean Corpuscular Hemoglobin 31.4H, Mean Corpuscular Hemoglobin Concent 32.5, Red Cell Distribution Width 13.9, Platelet Count 214, Mean Platelet Volume 7.4, Neutrophils (%) (Auto) 78.4H, Lymphocytes ( %) (Auto) 8.2L, Monocytes (%) (Auto) 8.9, Eosinophils (%) (Auto) 3.7H, Basophils (%) (Auto) 0.8, Sodium Level 144, Potassium Level 3.9, Chloride Level 105, Carbon Dioxide Level 29, Anion Gap 10, Blood Urea Nitrogen 11, Creatinine 0.5, Estimat Glomerular Filtration Rate , Glucose Level 203H, Calcium Level 8.6 Current Medications Medications (Trade) Dose Ordered Sig/Gary Route PRN Reason Start Time Stop Time Status Last Admin Dose Admin Acetaminophen (Tylenol) 650 mg Q4H PRN ORAL FEVER 09/27/16 15:30 10/27/16 15:29 Dextrose (Dextrose 50%) STAT PRN IV Hypoglycemia 09/27/16 15:30 10/27/16 15:29 Lorazepam (Ativan 2mg/ml 1ml) 2 mg Q2H PRN IV For Anxiety 09/27/16 15:30 10/04/16 15:29 Metoprolol Tartrate (Lopressor) 50 mg BID ORAL 09/27/16 18:00 10/27/16 17:59 10/01/16 09:52 Metronidazole (Flagyl) 500 mg Q8HR ORAL 09/27/16 22:00 10/04/16 21:59 10/01/16 06:40 Morphine Sulfate (Morphine Sulfate) 4 mg Q4H PRN IVP Severe Pain (Pain Scale 7-10) 09/27/16 15:30 10/04/16 15:29 10/01/16 02:45 Ondansetron HCl (Zofran) 4 mg Q6H PRN IVP Nausea & Vomiting 09/27/16 15:00 10/27/16 14:59 Pantoprazole (Protonix) 40 mg DAILY IVP 09/30/16 09:00 10/30/16 08:59 10/01/16 09:53 Polyethylene Glycol (Miralax) 17 gm DAILYPRN PRN ORAL Constipation 09/27/16 15:30 10/27/16 15:29 Ranitidine HCl (Zantac) 150 mg DAILY GT 09/30/16 09:00 10/30/16 08:59 10/01/16 09:53 Sodium Chloride (NS w/KCl 20mEq) 1,000 ml @ 50 mls/hr Q20H IV 09/27/16 16:30 10/27/16 16:29 10/01/16 00:32 [facility] ([facility])Irena NP Oct 01, 2016 13:35
[2016-10-01] MEDS ORDERED: DuoNeb 0.5-3(2.5)mg/3ml neb HHN PRN (13:45)
--- NOTE | 2016-10-01 13:55 | Cardiac Electrophysiology PN ---
Assessment/Plan Assessment/Plan 1. Atrial fibrillation with rapid ventricular response.Continue Metoprolol 50 bid. Off anticoagulation for fall risk. 2. Hypertension.On Metoprolol 50 bid. 3. 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 S/P Sepsis 5. C Diff on po Flagyl 6. Encephalopathy. 7. Dysphagia. S/P PEG 09/29/[address] Dada CHOPRA RN Subjective Subjective Comfortable in NAD.No events overnight. Objective Last 24 Hour Vital Signs Date Time Temp Pulse Resp B/P Pulse Ox O2 Delivery O2 Flow Rate FiO2 10/01/16 12:00 96.8 90 22 127/85 98 Nasal Cannula 2.0 10/01/16 09:52 99 133/64 10/01/16 08:00 97.0 99 22 133/64 99 Room Air 10/01/16 04:00 97.7 98 18 112/62 97 Room Air 10/01/16 03:15 97.9 10/01/16 00:00 97.9 98 20 146/72 97 Nasal Cannula 2.0 09/30/16 20:10 96.6 96 23 153/86 96 Room Air 09/30/16 17:46 100 150/85 09/30/16 16:00 97.7 100 21 150/85 96 Room Air Intake and Output 09/30/16 10/01/16 19:00 07:00 Intake Total 1620 ml 1680 ml Output Total 400 ml 550 ml Balance 1220 ml 1130 ml Free Water 300 ml 360 ml IV Total 600 ml 600 ml Tube Feeding 720 ml 720 ml Output Urine Total 400 ml 550 ml # Voids 1 Laboratory Tests Test 10/01/16 05:00 White Blood Count 13.3 K/UL (4.8-10.8) H Red Blood Count 4.74 M/UL (4.20-5.40) Hemoglobin 14.9 G/DL (12.0-16.0) Hematocrit 45.9 % (37.0-47.0) Mean Corpuscular Volume 97 FL (80-99) Mean Corpuscular Hemoglobin 31.4 PG (27.0-31.0) H Mean Corpuscular Hemoglobin Concent 32.5 G/DL (32.0-36.0) Red Cell Distribution Width 13.9 % (11.6-14.8) Platelet Count 214 K/UL (150-450) Mean Platelet Volume 7.4 FL (6.5-10.1) Neutrophils (%) (Auto) 78.4 % (45.0-75.0) H Lymphocytes (%) (Auto) 8.2 % (20.0-45.0) L Monocytes (%) (Auto) 8.9 % (1.0-10.0) Eosinophils (%) (Auto) 3.7 % (0.0-3.0) H Basophils (%) (Auto) 0.8 % (0.0-2.0) Sodium Level 144 mEQ/L (135-145) Potassium Level 3.9 mEQ/L (3.4-4.9) Chloride Level 105 mEQ/L (98-107) Carbon Dioxide Level 29 mEQ/L (20-30) Anion Gap 10 (5-15) Blood Urea Nitrogen 11 mg/dL (7-23) Creatinine 0.5 mg/dL (0.5-0.9) Estimat Glomerular Filtration Rate mL/min (>60) Glucose Level 203 mg/dL (74-106) H Calcium Level 8.6 mg/dL (8.6-10.2) Current Medications Medications (Trade) Dose Ordered Sig/Gary Route PRN Reason Start Time Stop Time Status Last Admin Dose Admin Acetaminophen (Tylenol) 650 mg Q4H PRN ORAL FEVER 09/27/16 15:30 10/27/16 15:29 Albuterol/ Ipratropium (DuoNeb 0.5-3(2.5)mg/3ml) 3 ml Q4H PRN HHN sob 10/01/16 13:45 10/06/16 13:44 Dextrose (Dextrose 50%) STAT PRN IV Hypoglycemia 09/27/16 15:30 10/27/16 15:29 Lorazepam (Ativan 2mg/ml 1ml) 2 mg Q2H PRN IV For Anxiety 09/27/16 15:30 10/04/16 15:29 Magnesium Sulfate (Magnesium Sulfate 1gm/100ml) 100 ml @ 100 mls/hr Q1H IVPB 10/01/16 14:45 10/01/16 16:44 Metoprolol Tartrate (Lopressor) 50 mg BID ORAL 09/27/16 18:00 10/27/16 17:59 10/01/16 09:52 Metronidazole (Flagyl) 500 mg Q8HR ORAL 09/27/16 22:00 10/04/16 21:59 10/01/16 06:40 Morphine Sulfate (Morphine Sulfate) 4 mg Q4H PRN IVP Severe Pain (Pain Scale 7-10) 09/27/16 15:30 10/04/16 15:29 10/01/16 02:45 Ondansetron HCl (Zofran) 4 mg Q6H PRN IVP Nausea & Vomiting 09/27/16 15:00 10/27/16 14:59 Pantoprazole 40 mg 40 mg DAILY IVP 09/30/16 09:00 10/30/16 08:59 10/01/16 09:53 Polyethylene Glycol (Miralax) 17 gm DAILYPRN PRN ORAL Constipation 09/27/16 15:30 10/27/16 15:29 Potassium Phos/ Sodium Phos (Neutraphos-K Pkt) 1 pkt THREE TIMES A DAY ORAL 10/01/16 13:45 10/02/16 09:01 Ranitidine HCl (Zantac) 150 mg DAILY GT 09/30/16 09:00 10/30/16 08:59 10/01/16 09:53 Sodium Chloride (NS w/KCl 20mEq) 1,000 ml @ 50 mls/hr Q20H IV 09/27/16 16:30 10/27/16 16:29 10/01/16 00:32 Objective HEAD AND NECK: Showed no JVD. LUNGS: Coarse rhonchi. CARDIOVASCULAR: Irregular S1 and S2 with no gallop or murmur. ABDOMEN: Soft and nontender.PEG in place EXTREMITIES: 1 plus edema. KAISER RODRIGUEZ Oct 01, 2016 13:55
[2016-10-01] MEDS: Neutraphos-K pkt ORAL SCH ×2 (14:54→18:16)
[2016-10-01 16:00] VITALS: BP 148/81
--- NOTE | 2016-10-01 19:06 | Internal Med Progress Note ---
Subjective Date of Service: Oct 01, 2016 Physician Name EmilyAngeli Attending Physician Timo Watkins MD Current Medications Medications (Trade) Dose Ordered Sig/Gary Route PRN Reason Start Time Stop Time Status Last Admin Dose Admin Acetaminophen (Tylenol) 650 mg Q4H PRN ORAL FEVER 09/27/16 15:30 10/27/16 15:29 Albuterol/ Ipratropium (DuoNeb 0.5-3(2.5)mg/3ml) 3 ml Q4H PRN HHN sob 10/01/16 13:45 10/06/16 13:44 Dextrose (Dextrose 50%) STAT PRN IV Hypoglycemia 09/27/16 15:30 10/27/16 15:29 Lorazepam (Ativan 2mg/ml 1ml) 2 mg Q2H PRN IV For Anxiety 09/27/16 15:30 10/04/16 15:29 Metoprolol Tartrate (Lopressor) 50 mg BID ORAL 09/27/16 18:00 10/27/16 17:59 10/01/16 18:16 Metronidazole (Flagyl) 500 mg Q8HR ORAL 09/27/16 22:00 10/04/16 21:59 10/01/16 14:53 Morphine Sulfate (Morphine Sulfate) 4 mg Q4H PRN IVP Severe Pain (Pain Scale 7-10) 09/27/16 15:30 10/04/16 15:29 10/01/16 02:45 Ondansetron HCl (Zofran) 4 mg Q6H PRN IVP Nausea & Vomiting 09/27/16 15:00 10/27/16 14:59 Pantoprazole (Protonix) 40 mg DAILY IVP 09/30/16 09:00 10/30/16 08:59 10/01/16 09:53 Polyethylene Glycol (Miralax) 17 gm DAILYPRN PRN ORAL Constipation 09/27/16 15:30 10/27/16 15:29 Potassium Phos/ Sodium Phos (Neutraphos-K Pkt) 1 pkt THREE TIMES A DAY ORAL 10/01/16 13:45 10/02/16 09:01 10/01/16 18:16 Ranitidine HCl (Zantac) 150 mg DAILY GT 09/30/16 09:00 10/30/16 08:59 10/01/16 09:53 Sodium Chloride (NS w/KCl 20mEq) 1,000 ml @ 50 mls/hr Q20H IV 09/27/16 16:30 10/27/16 16:29 10/01/16 00:32 Allergies: Coded Allergies: No Known Allergies (Unverified , 09/20/16) ROS Limited/Unobtainable: Yes Subjective 89 YO F admitted with altered mental status. Now C.Diff diarrhea and sepsis/ UTI. Cover for Int Med-Dr Watkins. Still confused. Failed video swallow;S/P PEG 09/29/16. Await transfer to [facility] Objective Last Vital Signs Date Time Temp Pulse Resp B/P Pulse Ox O2 Delivery O2 Flow Rate FiO2 10/01/16 18:16 94 148/81 10/01/16 16:00 96.8 22 98 Nasal Cannula 2.0 10/01/16 13:27 28 Laboratory Tests Test 10/01/16 05:00 White Blood Count 13.3 K/UL (4.8-10.8) H Red Blood Count 4.74 M/UL (4.20-5.40) Hemoglobin 14.9 G/DL (12.0-16.0) Hematocrit 45.9 % (37.0-47.0) Mean Corpuscular Volume 97 FL (80-99) Mean Corpuscular Hemoglobin 31.4 PG (27.0-31.0) H Mean Corpuscular Hemoglobin Concent 32.5 G/DL (32.0-36.0) Red Cell Distribution Width 13.9 % (11.6-14.8) Platelet Count 214 K/UL (150-450) Mean Platelet Volume 7.4 FL (6.5-10.1) Neutrophils (%) (Auto) 78.4 % (45.0-75.0) H Lymphocytes (%) (Auto) 8.2 % (20.0-45.0) L Monocytes (%) (Auto) 8.9 % (1.0-10.0) Eosinophils (%) (Auto) 3.7 % (0.0-3.0) H Basophils (%) (Auto) 0.8 % (0.0-2.0) Sodium Level 144 mEQ/L (135-145) Potassium Level 3.9 mEQ/L (3.4-4.9) Chloride Level 105 mEQ/L (98-107) Carbon Dioxide Level 29 mEQ/L (20-30) Anion Gap 10 (5-15) Blood Urea Nitrogen 11 mg/dL (7-23) Creatinine 0.5 mg/dL (0.5-0.9) Estimat Glomerular Filtration Rate mL/min (>60) Glucose Level 203 mg/dL (74-106) H Calcium Level 8.6 mg/dL (8.6-10.2) Intake and Output 09/30/16 10/01/16 19:00 07:00 Intake Total 1620 ml 1680 ml Output Total 400 ml 550 ml Balance 1220 ml 1130 ml Free Water 300 ml 360 ml IV Total 600 ml 600 ml Tube Feeding 720 ml 720 ml Output Urine Total 400 ml 550 ml # Voids 1 Objective General Appearance: WD/WN, no apparent distress, alert EENT: PERRL/EOMI, normal ENT inspection Neck: non-tender, normal alignment, supple, normal inspection Cardiovascular: normal peripheral pulses, normal rate, no gallop/murmur, no JVD , irregularly irregular Respiratory/Chest: chest wall non-tender, lungs clear, normal breath sounds, no respiratory distress, no accessory muscle use Abdomen: normal bowel sounds, non tender, soft, no organomegaly, no mass Extremities: normal range of motion Neurologic: coil connector II-XII grossly normal Skin: normal pigmentation, warm/dry Assessment/Plan Problem List: (1) Altered mental status Assessment & Plan: Still confused. (2) UTI (urinary tract infection) Assessment & Plan: Kebsiella pneumoniae. D/C cefoxitin per ID (3) Sepsis (4) HTN (hypertension) Assessment & Plan: Cont metoprolol (5) CHF (congestive heart failure) Assessment & Plan: See cardiology note. (6) Alzheimer's dementia (7) Hypokalemia Assessment & Plan: Replace potassium PO (8) Dysphagia Assessment & Plan: Failed video swallow; S/P PEG09/29/16-see GI note. (9) Atrial fibrillation Assessment & Plan: See cardiology note. Continue metoprolol (10) Hypothyroidism (11) Depression (12) Klebsiella pneumoniae Assessment & Plan: See UTI above. (13) Leukocytosis Assessment & Plan: Resolving. (14) Aortic stenosis, severe Assessment & Plan: See cardiology note. (15) C. difficile diarrhea Assessment & Plan: Cont oral flagyl per ID Assessment/Plan Plan to D/C to [facility] fac AM 10/02/16 when bed available ANGELI MILNER Oct 01, 2016 19:06
[2016-10-01 20:00] VITALS: BP 135/81
[2016-10-02] VITALS: BP 142/79
[2016-10-02 04:00] VITALS: BP 159/95
[2016-10-02 04:41] LABS: BASOPHILS % (AUTO) 0.9 % (0.0-2.0); EOSINOPHILS % (AUTO) 4.8 % (0.0-3.0); LYMPHOCYTES % (AUTO) 6.3 % (20.0-45.0); MEAN CORPUSCULAR HEMOGLOBIN 31.2 PG (27.0-31.0); MEAN CORPUSCULAR HGB CONC 31.5 G/DL (32.0-36.0); MEAN CORPUSCULAR VOLUME 99 FL (80-99); MEAN PLATELET VOLUME 6.9 FL (6.5-10.1); MONOCYTES % (AUTO) 7.5 % (1.0-10.0); NEUTROPHILS % (AUTO) 80.5 % (45.0-75.0); PLATELET COUNT 178 K/UL (150-450); RED BLOOD COUNT 4.36 M/UL (4.20-5.40); RED CELL DISTRIBUTION WIDTH 13.9 % (11.6-14.8); WHITE BLOOD COUNT 11.9 K/UL (4.8-10.8)
[2016-10-02 05:02] LABS: ANION GAP 9 (5-15); CALCIUM 8.2 mg/dL (8.6-10.2); CARBON DIOXIDE 29 mEQ/L (20-30); CHLORIDE 107 mEQ/L (98-107); CREATININE 0.3 mg/dL (0.5-0.9); HEMOLYSIS 3; MAGNESIUM 1.7 mg/dL (1.7-2.5); PHOSPHORUS 2.1 mg/dL (2.5-4.8); SODIUM 145 mEQ/L (135-145)
[2016-10-02] MEDS: metroNIDAZOLE 500mg tab ORAL SCH ×2 (05:20→14:11)
[2016-10-02 08:00] VITALS: BP 143/91
[2016-10-02] MEDS: Neutraphos-K pkt ORAL SCH (09:01)
[2016-10-02] MEDS: Pantoprazole Inj IVP SCH (09:02)
[2016-10-02] MEDS: Metoprolol 50mg tab ORAL SCH (09:02)
[2016-10-02] MEDS: Morphine Sulfate 4mg/ml Inj IVP PRN (09:13)
[2016-10-02] MEDS ORDERED: FLAGYL500 MG ORAL (10:55)
[2016-10-02] MEDS ORDERED: RANITIDINE HCL150 MG GT (10:55)
[2016-10-02] MEDS ORDERED: DUONEB 0.5-3(2.53 ML HHN (10:55)
[2016-10-02] MEDS ORDERED: METOPROLOL TART50 MG ORAL (10:55)
--- NOTE | 2016-10-02 11:05 | Discharge Summary ---
Discharge Summary Hospital Course Date of Admission Sep 20, 2016 at 21:42 Date of Discharge Admitting Diagnosis severe sepsis, pneumonia HPI Li Mathur is a 89 year old female who was admitted on Sep 20, 2016 at 21: 42 for Severe Sepsis, Pneumonia Hospital Course Dictated for Int Med-Dr. Watkins no. [id number]. Discharge Discharge Disposition Patient was discharged to SNF/Subacute Facility(03) Discharge Diagnoses: ANGELI MILNER Oct 02, 2016 11:05
--- NOTE | 2016-10-02 11:14 | GI Progress Note ---
Assessment/Plan Problems: (1) Encounter for PEG (percutaneous endoscopic gastrostomy) ICD Codes: Z43.1 - Encounter for attention to gastrostomy SNOMED: 025967448, 573394913 (2) C. difficile diarrhea ICD Codes: A04.7 - Enterocolitis due to Clostridium difficile SNOMED: 97014023, 103516059 (3) Dysphagia ICD Codes: R13.10 - Dysphagia, unspecified SNOMED: 85792646, 913053437 Status: stable, unchanged Status Narrative Discussed with Dr. Garland. Assessment/Plan ok for DC per GI standpoint gtf cdiff positive >> PO Flagyl bowel regime H2 fu labs Subjective Subjective limited Objective Last 24 Hour Vital Signs Date Time Temp Pulse Resp B/P Pulse Ox O2 Delivery O2 Flow Rate FiO2 10/02/16 09:43 97.5 10/02/16 09:02 105 143/91 10/02/16 08:25 97 Nasal Cannula 2.0 28 10/02/16 08:25 110 20 Nasal Cannula 2.0 28 10/02/16 08:25 Nasal Cannula 2.0 28 10/02/16 08:00 98.8 105 22 143/91 96 Nasal Cannula 2.0 10/02/16 04:00 97.5 98 18 159/95 98 Nasal Cannula 2.0 10/02/16 00:00 97.3 103 22 142/79 95 Nasal Cannula 2.0 10/01/16 20:04 92 20 Nasal Cannula 2.0 28 10/01/16 20:03 Nasal Cannula 2.0 28 10/01/16 20:03 98 Nasal Cannula 2.0 28 10/01/16 20:00 97.9 78 20 135/81 97 Nasal Cannula 2.0 10/01/16 18:16 94 148/81 10/01/16 16:00 96.8 94 22 148/81 98 Nasal Cannula 2.0 10/01/16 13:27 98 Nasal Cannula 2.0 28 10/01/16 13:27 Nasal Cannula 2.0 28 10/01/16 12:00 96.8 90 22 127/85 98 Nasal Cannula 2.0 Intake and Output 10/01/16 10/02/16 19:00 07:00 Intake Total 1420 ml 1620 ml Output Total 100 ml 270 ml Balance 1320 ml 1350 ml Free Water 300 ml 300 ml IV Total 400 ml 600 ml Tube Feeding 720 ml 720 ml Output Urine Total 100 ml 270 ml # Bowel Movements 1 2 Laboratory Tests Test 10/02/16 03:50 White Blood Count 11.9 K/UL (4.8-10.8) H Red Blood Count 4.36 M/UL (4.20-5.40) Hemoglobin 13.6 G/DL (12.0-16.0) Hematocrit 43.3 % (37.0-47.0) Mean Corpuscular Volume 99 FL (80-99) Mean Corpuscular Hemoglobin 31.2 PG (27.0-31.0) H Mean Corpuscular Hemoglobin Concent 31.5 G/DL (32.0-36.0) L Red Cell Distribution Width 13.9 % (11.6-14.8) Platelet Count 178 K/UL (150-450) Mean Platelet Volume 6.9 FL (6.5-10.1) Neutrophils (%) (Auto) 80.5 % (45.0-75.0) H Lymphocytes (%) (Auto) 6.3 % (20.0-45.0) L Monocytes (%) (Auto) 7.5 % (1.0-10.0) Eosinophils (%) (Auto) 4.8 % (0.0-3.0) H Basophils (%) (Auto) 0.9 % (0.0-2.0) Sodium Level 145 mEQ/L (135-145) Potassium Level 4.0 mEQ/L (3.4-4.9) Chloride Level 107 mEQ/L (98-107) Carbon Dioxide Level 29 mEQ/L (20-30) Anion Gap 9 (5-15) Blood Urea Nitrogen 15 mg/dL (7-23) Creatinine 0.3 mg/dL (0.5-0.9) L Estimat Glomerular Filtration Rate mL/min (>60) Glucose Level 152 mg/dL (74-106) H Calcium Level 8.2 mg/dL (8.6-10.2) L Phosphorus Level 2.1 mg/dL (2.5-4.8) L Magnesium Level 1.7 mg/dL (1.7-2.5) Height (Feet): 5 Height (Inches): 5.00 Weight (Pounds): 138 General Appearance: alert, confused Cardiovascular: normal rate Respiratory/Chest: no respiratory distress Abdominal Exam: GT site - c/d/i Carine Isaac N.P. Oct 02, 2016 11:13
--- NOTE | 2016-10-02 11:52 | Diagnostic Imaging Report ---
Indication: Dyspnea Comparison: 09/20/16 A single view chest radiograph was obtained. Findings: Hazy left basal opacity obscuring the left hemidiaphragm and heart border noted. Heart is enlarged. There is some vascular prominence bilaterally. Bones are osteopenic. Impression: Left pleural effusion. Mild CHF suspected
[2016-10-02 12:00] VITALS: BP 141/106
[2016-10-02] MEDS ORDERED: Tubing IV Secondary IV ONE (14:19)
--- NOTE | 2016-10-02 17:35 | Pulmonology Progress Note ---
Assessment/Plan Problems: (1) Acute encephalopathy (2) Atrial fibrillation (3) Altered level of consciousness (4) Severe sepsis (5) Depression (6) Hypothyroidism (7) [facility] resident Assessment/Plan cdiff positive continue antibiotics heart rate controlled better Blood pressure better dc planning if ok with electrical engineering designer Subjective Constitutional: Reports: anorexia, fatigue Gastrointestinal/Abdominal: Reports: diarrhea, nausea, vomiting Allergies: Coded Allergies: No Known Allergies (Unverified , 09/20/16) Objective Last 24 Hour Vital Signs Date Time Temp Pulse Resp B/P Pulse Ox O2 Delivery O2 Flow Rate FiO2 10/02/16 12:00 97.1 89 20 141/106 96 Nasal Cannula 2.0 10/02/16 09:43 97.5 10/02/16 09:02 105 143/91 10/02/16 08:25 97 Nasal Cannula 2.0 28 10/02/16 08:25 110 20 Nasal Cannula 2.0 28 10/02/16 08:25 Nasal Cannula 2.0 28 10/02/16 08:00 98.8 105 22 143/91 96 Nasal Cannula 2.0 10/02/16 04:00 97.5 98 18 159/95 98 Nasal Cannula 2.0 10/02/16 00:00 97.3 103 22 142/79 95 Nasal Cannula 2.0 10/01/16 20:04 92 20 Nasal Cannula 2.0 28 10/01/16 20:03 Nasal Cannula 2.0 28 10/01/16 20:03 98 Nasal Cannula 2.0 28 10/01/16 20:00 97.9 78 20 135/81 97 Nasal Cannula 2.0 10/01/16 18:16 94 148/81 Intake and Output 10/01/16 10/02/16 19:00 07:00 Intake Total 1420 ml 1620 ml Output Total 100 ml 270 ml Balance 1320 ml 1350 ml Free Water 300 ml 300 ml IV Total 400 ml 600 ml Tube Feeding 720 ml 720 ml Output Urine Total 100 ml 270 ml # Bowel Movements 1 2 General Appearance: no acute distress HEENT: normocephalic, atraumatic, anicteric, mucous membranes moist Respiratory/Chest: chest wall non-tender, decreased breath sounds, accessory muscle use Breasts: no masses Cardiovascular: normal peripheral pulses, normal rate, regular rhythm, no JVD Abdomen: hyperactive bowel sounds, distended, guarding, tender, rebound tenderness Genitourinary: normal external genitalia Extremities: no cyanosis Neurologic/Psychiatric: writing tutor II-XII grossly normal, no motor/sensory deficits Laboratory Tests 10/02/16 03:50: White Blood Count 11.9H, Red Blood Count 4.36, Hemoglobin 13.6, Hematocrit 43.3 , Mean Corpuscular Volume 99, Mean Corpuscular Hemoglobin 31.2H, Mean Corpuscular Hemoglobin Concent 31.5L, Red Cell Distribution Width 13.9, Platelet Count 178, Mean Platelet Volume 6.9, Neutrophils (%) (Auto) 80.5H, Lymphocytes (%) (Auto) 6.3L, Monocytes (%) (Auto) 7.5, Eosinophils (%) (Auto) 4.8H, Basophils (%) (Auto) 0.9, Sodium Level 145, Potassium Level 4.0, Chloride Level 107, Carbon Dioxide Level 29, Anion Gap 9, Blood Urea Nitrogen 15, Creatinine 0.3L, Estimat Glomerular Filtration Rate , Glucose Level 152H, Calcium Level 8.2L, Phosphorus Level 2.1L, Magnesium Level 1.7 LEONORA XIAO Oct 02, 2016 17:35
--- NOTE | 2016-10-03 04:37 | Discharge Summary ---
DATE OF ADMISSION: 09/20/2016 DATE OF DISCHARGE: 10/02/2016 ADMITTING DIAGNOSES: 1. Altered mental status. 2. Atrial fibrillation. 3. Hypertension. 4. Congestive heart failure. 5. Hypothyroidism. 6. Alzheimer's dementia. 7. Hypokalemia. 8. Dysphagia. 9. Depression. 10. Aortic stenosis. DISCHARGE DIAGNOSES: 1. Clostridium difficile diarrhea. 2. Altered mental status. 3. Urinary tract infection. 4. Sepsis. 5. Atrial fibrillation. 6. Hypertension. 7. Congestive heart failure. 8. Hypothyroidism. 9. Alzheimer's dementia. 10. Hypokalemia. 11. Dysphagia. 12. Depression. 13. Aortic stenosis. HOSPITAL COURSE BY PROBLEM LIST: 1. Urinary tract infection/sepsis. A urine culture grew out Klebsiella pneumonia. The patient was placed empirically on vancomycin and cefepime. Klebsiella was sensitive to cefepime. An Infectious Disease consultation was obtained with Dr. Edwin Candelario. The patient has completed 10-day course of cefepime and vancomycin. 2. Clostridium difficile diarrhea. The patient developed diarrhea during hospitalization. A stool culture revealed Clostridium difficile. The patient is currently tolerating Flagyl 500 mg one tablet p.o. q.8 hours. The patient is to continue this for 10 more days upon discharge. 3. Atrial fibrillation. A Cardiology consultation was obtained with . Atrial fibrillation stable during the hospitalization. 4. Hypertension. The patient remained on metoprolol 50 mg one tablet p.o. twice daily. Blood pressure is well controlled during hospitalization. 5. Congestive heart failure. As above, a Cardiology consultation was obtained with . The patient received intravenous Lasix. Congestive heart failure is now resolved. 6. Hypothyroidism. The patient remained on Synthroid during the hospitalization. The patient is to continue as an outpatient. 7. Alzheimer's dementia. 8. Hypokalemia. The patient received potassium supplementation during the hospitalization. Potassium level is now normal. 9. Dysphagia. Gastroenterology consultation was obtained with Dr. Joshua Garland. The patient had an endoscopy on 02/28/2016 with percutaneous gastrostomy tube placed. The patient is currently receiving tube feeds. The patient to follow up with Dr. Garland as an outpatient. 10. Depression. 11. Severe aortic stenosis. DISCHARGE MEDICATIONS: Please refer to discharge medication list. DISCHARGE INSTRUCTIONS: The patient is discharged to [facility] Nurse [facility] today 10/02/2016. Rodrigo Diaz M.D. DR: CASIMIRO JOB#: [id number] CC:
--- NOTE | 2016-10-03 08:20 | Diagnostic Imaging Report ---
Indications: Dysphagia Technique: Multiphasic barium dysphagia study was performed under fluoroscopic control with Deanne Cruz speech pathologist. Cinegraphic images were obtained. Total fluoroscopy time: 318.7 sec Dose-area product: 0.37 mGy-m2 Findings: Comparison: None Oral and pharyngeal phases of swallowing demonstrate multiple mechanical abnormalities, as enumerated on speech pathology evaluation form. The patient demonstrates laryngeal penetration of thin liquid and nectar thickness barium without aspiration. No penetration or aspiration of any thicker consistency of barium tested. There is significant coating of pharyngeal structures by barium after swallowing (3/4).. Esophageal phase of swallowing demonstrates no obvious barium pooling. IMPRESSION: Abnormal oropharyngeal mechanics with laryngeal penetration of thinner consistencies of barium tested, without aspiration Significant post swallow pharyngeal residue. No obvious esophageal dysmotility. Recommendation per speech pathology evaluation form.
--- NOTE | 2016-10-03 23:29 | Diagnostic Imaging Report ---
APPROVED REPORT CPT Code: 37400 Present Symptoms Comments: Swelling Hx of A-Fib RIGHT UPPER EXTREMITY: Imaging reveals patency of the internal jugular, subclavian, axillary and brachial veins. The cephalic and basilic veins are also patent. Doppler indicates normal spontaneous flow within these venous segments.
== END 2016-10-02 14:20 | DRG 871 ==
LOC: EDBD 20:41 → EDBEDREQ 21:18 → EMR 21:41 → ICU 21:42 → EDBEDREQ 22:00 → 2E 09-21 15:20 → 4W 09-27 15:33
PROC: 0DH63UZ Insertion of Feeding Device into Stomach, Percutaneous Approach (ICD-10-PCS; principal; 2016-09-29 08:24)
DX: A41.9 Sepsis, unspecified organism (principal); G93.49 Other encephalopathy; A04.7 Enterocolitis due to Clostridium difficile; R13.10 Dysphagia, unspecified; I50.9 Heart failure, unspecified; K26.9 Duodenal ulcer, unspecified as acute or chronic, without hemorrhage or perforation; N39.0 Urinary tract infection, site not specified; I10 Essential (primary) hypertension; B96.1 Klebsiella pneumoniae [K. pneumoniae] as the cause of diseases classified elsewhere; G30.9 Alzheimer's disease, unspecified; F02.80 Dementia in other diseases classified elsewhere, unspecified severity, without behavioral disturbance, psychotic disturbance, mood disturbance, and anxiety; E03.9 Hypothyroidism, unspecified; E87.6 Hypokalemia; I35.0 Nonrheumatic aortic (valve) stenosis; R65.20 Severe sepsis without septic shock; F32.9 Major depressive disorder, single episode, unspecified; D72.829 Elevated white blood cell count, unspecified; I48.2 Chronic atrial fibrillation; K29.70 Gastritis, unspecified, without bleeding; R62.7 Adult failure to thrive; M19.90 Unspecified osteoarthritis, unspecified site; Z79.01 Long term (current) use of anticoagulants; Z68.23 Body mass index [BMI] 23.0-23.9, adult
CPT/HCPCS: 36415; 36600; 71010; 74230; 80048; 80053; 80069; 80202; 81003; 82550; 82553; 82803; 83605; 83735; 83880; 84100; 84439; 84443; 84480; 84481; 84484; 85007; 85025; 85610; 85730; 87040; 87081; 87086; 87181; 87493; 93005; 93306; 93970; 94003; 94150; 94664; 94760; J8499